=== PATIENT | female | born 1975 | race Caucasian/White ===

== ENCOUNTER → 2017-07-09 10:27 | Outpatient (CLI) | payer BC, SELFPAY ==
[2017-07-09 11:59] LABS: Erythrocyte Sedimentation Rate 10 mm/hr (0-20)
[2017-07-09 14:43] LABS: C-Reactive Protein < 0.2 mg/L (0.0-0.9)
[2017-07-10 13:21] LABS: RA Latex Turbid. <10.0 IU/mL (0.0-13.9)
[2017-07-11 11:51] LABS: Antinuclear Antibodies, IFA Negative (.)
[2017-07-18 11:50] LABS: HLA-B27 Positive (.)
== END ==
PROVIDERS: Visit Provider Podiatrist Foot & Ankle Surgery
DX: M20.40 Other hammer toe(s) (acquired), unspecified foot (principal); M79.673 Pain in unspecified foot
CPT/HCPCS: 36415; 85651; 86038; 86140; 86431; 86812

== ENCOUNTER → 2019-07-13 07:23 | Outpatient (CLI) | payer BC, SELFPAY ==
--- NOTE | 2019-07-13 | ECG_ITS ---
APPROVED REPORT Exam: Resting ECG HR:65 bpm ECG Measurements Heart Rate 65 AXES AK 126 P 84 QRSd 92 QRS 92 QT 388 T 66 QTc 403 <Conclusion> Normal sinus rhythm Rightward axis Nonspecific ST and T wave abnormality Abnormal ECG Electronically signed by : Romulo Ferguson, 07/13/2019 11:48:08
--- NOTE | 2019-07-13 07:29 | XR_ITS ---
PROCEDURE: XR CHEST 2V CLINICAL HISTORY: LT SIDE CHEST PAIN COMPARISON: No exams were available for comparison FINDINGS: The cardiomediastinal silhouette and pulmonary vascularity are within normal limits. The lungs are clear without infiltrates, suspicious nodules, or pleural effusions. No acute bony abnormalities. IMPRESSION: No acute findings. Dictated by: Lisandro Bansal MD 07/13/2019 08:14 Electronically signed by Lisandro Bansal MD in [place] 07/13/2019 08:14
--- NOTE | 2019-07-13 08:00 | CA_ITS ---
APPROVED REPORT EXAM: Comprehensive 2D, Doppler, and color-flow Echocardiogram Tug Boat Engineer: Kim Arriola RDCS Ht: 5 ft 7 in Wt: 140lbs BSA: 1.74 BP: 80/45 mmHg Indications: Chest Pain 2D Dimensions LVOT 2.03 cm (M/F) 1.5-2.5 M-Mode Dimensions RVDd 2.74 cm (0.9-2.6) LVDd 4.75 cm (3.5-5.7) LVDs 3.25 cm (3.5-5.7) IVSd 0.50 cm (0.6-1.1) PWd 0.67 cm (0.6-1.1) EF (Teich) 59.50% FS 31.60% EDV (Teich) 104.90 mL ESV (Teich) 42.50 mL LV Diastology E/A Ratio 1.17 Mitral Valve MV A Velocity 59.00 (40-130 cm/s) Left Ventricle Left atrium is normal size, left ventricle is normal size, there is no concentric left ventricular hypertrophy, visually estimated ejection fraction 55% with no regional wall motion abnormality, diastolic parameters are within normal range. Right Ventricle Right atrium is normal size, right ventricle is upper limit of the normal with normal contractility. Aortic Valve Aortic valve is grossly normal, there is no aortic stenosis or aortic insufficiency. Mitral Valve Mitral valve is grossly normal, there is no mitral stenosis, there is trace mitral regurgitation. Tricuspid Valve Tricuspid valve is grossly normal, there is trace tricuspid regurgitation. Tricuspid regurgitation jet velocity is inadequate for calculation of the right ventricular systolic pressure. Pulmonic Valve Pulmonic valve is poorly visualized. Great Vessels Aortic root is normal size. Pericardium No significant pericardial effusion noted. Conclusion 1. Normal left ventricular size, preserved left ventricular systolic function, visually estimated ejection fraction 55% with no regional wall motion abnormality, diastolic parameters are within normal range. 2. Trace mitral and tricuspid regurgitation. 3. No significant pericardial effusion noted. Electronically signed by : Jace Cain, 07/14/2019 05:37:03
[2019-07-13 08:36] LABS: Basophils % 0.5 % (0.1-2.0); Eosinophils # 0.1 K/mm3 (0.0-0.4); Eosinophils % 0.9 % (0.1-12.0); Hematocrit 39.4 % (37.0-47.0); Hemoglobin 12.9 g/dL (12.2-16.2); Lymphocytes # 1.8 K/mm3 (0.7-4.5); Mean Corpuscular HGB Conc 32.6 g/dL (31.8-35.4); Mean Platelet Volume 7.3 fl (7.4-10.4); Monocytes # 0.3 K/mm3 (0.1-1.0); Monocytes % 5.6 % (1.7-9.3); Neutrophils # 3.2 K/mm3 (1.8-7.8); Neutrophils % 58.9 % (37.0-80.0); Platelet Count 269 K/mm3 (142-424); Red Blood Count 4.14 M/mm3 (4.20-5.40); Red Cell Distribution Width 13.1 % (11.5-17.5); White Blood Count 5.4 K/mm3 (4.8-10.8)
[2019-07-13 09:34] LABS: Chloride 100 mmol/L (98-107)
[2019-07-13 09:35] LABS: Potassium 4.1 mmoL/L (3.5-5.1); Sodium 137 mmol/L (136-145)
[2019-07-13 09:37] LABS: Alanine Aminotransferase 29 U/L (12-78); Alkaline Phosphatase 44 U/L (38-126); Anion Gap 11.1 mEq/L (5-15); Aspartate Amino Transferase 27 U/L (14-36); Bilirubin,Total 0.3 mg/dl (0.2-1.3); Blood Urea Nitrogen 14 mg/dl (7-17); Carbon Dioxide 30 mmol/L (22.0-30.0); Estimated Glomerular Filt Rate 90 ml/min (>60); GFR (African American) 109 ML/MIN (>60)
[2019-07-13 09:38] LABS: Albumin Level 4.1 g/dl (3.5-5.0); Albumin/Globulin Ratio 1.8 (1.1-1.8); Calcium 9.5 mg/dl (8.4-10.2); Chol/HDL Ratio 2.5 (1-3.5); Cholesterol 178 mg/dl (140-200); Globulin 2.3 g/dL (1.3-3.2); Glucose 70 mg/dl (74-100); HDL Cholesterol 70 mg/dl (40-60); Total Protein,Serum 6.4 g/dl (6.3-8.2); Triglycerides 56 mg/dl (30-150); VLDL Cholesterol 11 mg/dL (0-40)
[2019-07-13 09:49] LABS: Direct LDL Cholesterol 89.82 mg/dL (100-129)
[2019-07-13 10:09] LABS: Thyroid Stimulating Hormone 0.04 uIU/mL (0.465-4.68)
[2019-07-13 11:43] LABS: Hemoglobin A1C 5.2 % (4.0-6.0)
[2019-07-14 13:10] LABS: Vitamin B12 889 pg/mL (232-1245); Vitamin D 25 Hydroxy 54.7 ng/mL (30.0-100.0)
== END ==
PROVIDERS: PCP Family Medicine; Visit Provider Nurse Practitioner
DX: R07.9 Chest pain, unspecified (principal)
CPT/HCPCS: 36415; 71046; 80053; 80061; 82607; 82652; 83036; 84443; 85025; 93005; 93306

== ENCOUNTER → 2020-01-10 12:38 | Outpatient (CLI) | payer BC, SELFPAY | PROVIDERS: Visit Provider Family Medicine | DX: I95.9 Hypotension, unspecified (principal) ==

== ENCOUNTER → 2022-01-13 09:36 | Outpatient (CLI) | payer BC, SELFPAY ==
[2022-01-13 10:14] LABS: Coronavirus 19, PCR Not Detected (NotDetected); Influenza A, PCR Not Detected (NotDetected); Influenza B, PCR Not Detected (NotDetected)
[2022-01-13 10:20] LABS: Basophils % 0.4 % (0.1-2.0); Eosinophils # 0.1 K/mm3 (0.0-0.4); Eosinophils % 0.6 % (0.1-12.0); Hematocrit 41.3 % (37.0-47.0); Lymphocytes # 0.9 K/mm3 (0.7-4.5); Lymphocytes % 11.8 % (10-50); Mean Corpuscular HGB Conc 31.4 g/dL (31.8-35.4); Mean Corpuscular Hemoglobin 30.1 pg (27.0-31.2); Mean Corpuscular Volume 95.9 fl (81-99); Mean Platelet Volume 7.9 fl (7.4-10.4); Monocytes # 0.5 K/mm3 (0.1-1.0); Monocytes % 6.3 % (1.7-9.3); Neutrophils # 6.2 K/mm3 (1.8-7.8); Platelet Count 283 K/mm3 (142-424); White Blood Count 7.7 K/mm3 (4.8-10.8)
[2022-01-13 10:29] LABS: Strep Scrn Group A (Rapid) Negative (Negative)
== END ==
PROVIDERS: PCP Family Medicine; Visit Provider Family Medicine
DX: Z20.822 Contact with and (suspected) exposure to COVID-19 (principal); J02.9 Acute pharyngitis, unspecified
CPT/HCPCS: 85025; 87430; C9803; U0003; U0005

== ENCOUNTER → 2022-06-13 11:00 | Outpatient (CLI) | payer BC, SELFPAY | PROVIDERS: PCP Nurse Practitioner; Visit Provider Nurse Practitioner | DX: R30.0 Dysuria (principal) | CPT/HCPCS: 87086 ==

== ENCOUNTER → 2022-07-27 08:10 | Outpatient (CLI) | payer BC, SELFPAY ==
[2022-07-27 09:02] LABS: Basophils % 0.7 % (0.1-2.0); Eosinophils # 0.1 K/mm3 (0.0-0.4); Eosinophils % 1.1 % (0.1-12.0); Hematocrit 38.6 % (37.0-47.0); Hemoglobin 12.7 g/dL (12.2-16.2); Lymphocytes # 1.6 K/mm3 (0.7-4.5); Lymphocytes % 30.8 % (10-50); Mean Corpuscular HGB Conc 32.8 g/dL (31.8-35.4); Mean Corpuscular Hemoglobin 30.8 pg (27.0-31.2); Mean Corpuscular Volume 93.9 fl (81-99); Monocytes # 0.3 K/mm3 (0.1-1.0); Monocytes % 6.1 % (1.7-9.3); Neutrophils # 3.2 K/mm3 (1.8-7.8); Neutrophils % 61.3 % (37.0-80.0); Platelet Count 281 K/mm3 (142-424); Red Blood Count 4.11 M/mm3 (4.20-5.40); Red Cell Distribution Width 13.5 % (11.5-17.5); White Blood Count 5.1 K/mm3 (4.8-10.8)
[2022-07-27 09:50] LABS: Erythrocyte Sedimentation Rate 11 mm/hr (0-20)
[2022-07-27 09:59] LABS: Free T4 (Free Thyroxine) 1.59 ng/dl (0.78-2.19)
[2022-07-27 10:01] LABS: Anion Gap 7.5 mEq/L (5-15); Blood Urea Nitrogen 16 mg/dl (7-17); Carbon Dioxide 31 mmol/L (22.0-30.0); Chloride 97 mmol/L (98-107); Estimated Glomerular Filt Rate 107 ml/min (>60); GFR (African American) 129 ML/MIN (>60); Glucose 71 mg/dl (74-100); Potassium 4.5 mmoL/L (3.5-5.1); Sodium 131 mmol/L (136-145); Uric Acid 4.3 mg/dl (2.5-6.2)
[2022-07-27 10:02] LABS: Alanine Aminotransferase 23 U/L (12-78); Albumin Level 3.8 g/dl (3.5-5.0); Albumin/Globulin Ratio 1.7 (1.1-1.8); Alkaline Phosphatase 52 U/L (38-126); Aspartate Amino Transferase 29 U/L (14-36); Bilirubin,Total 0.4 mg/dl (0.2-1.3); Calcium 8.6 mg/dl (8.4-10.2); Chol/HDL Ratio 2.7 (1-3.5); Cholesterol 192 mg/dl (140-200); Globulin 2.3 g/dL (1.3-3.2); HDL Cholesterol 71 mg/dl (40-60); Total Protein,Serum 6.1 g/dl (6.3-8.2); Triglycerides 41 mg/dl (30-150); VLDL Cholesterol 8 mg/dL (0-40)
[2022-07-27 10:13] LABS: Direct LDL Cholesterol 99.15 mg/dL (100-129)
[2022-07-27 10:14] LABS: C-Reactive Protein < 0.3 mg/L (0-4)
[2022-07-27 10:17] LABS: 25-OH Vitamin D, Total 78.4 ng/mL (30-100)
[2022-07-27 10:32] LABS: Thyroid Stimulating Hormone < 0.02 uIU/mL (0.465-4.68)
[2022-07-27 10:51] LABS: Vitamin B12 876 pg/mL (239-931)
[2022-07-28 11:00] LABS: DHEA-Sulfate 82.9 ug/dL (41.2-243.7); Estradiol 94.5 pg/mL (.); Progesterone 2.4 ng/mL (.); RA Latex Turbid. 10.3 IU/mL (<14.0); Testosterone,Total 8 ng/dL (4-50); Thyroid Peroxidase Antibodies 13 IU/mL (0-34); Triiodothyronine (T3) Free 2.2 pg/mL (2.0-4.4); Triiodothyronine (T3) Total 74 ng/dL (71-180)
[2022-07-28 12:47] LABS: Anti-Centromere B Antibodies <0.2 AI (0.0-0.9); Anti-DNA (DS) Ab Qn <1 IU/mL (0-9); Anti-Jo-1 <0.2 AI (0.0-0.9); Anti-Smith Antibody <0.2 AI (0.0-0.9); Antichromatin Antibodies <0.2 AI (0.0-0.9); Antiscleroderma-70 Antibodies <0.2 AI (0.0-0.9); RNP Antibodies <0.2 AI (0.0-0.9); Sjogren's Anti-SS-A <0.2 AI (0.0-0.9); Sjogren's Anti-SS-B <0.2 AI (0.0-0.9)
[2022-07-30 17:23] LABS: Antinuclear Antibodies, IFA Negative (.); Thyroglobulin Level <1.0 IU/mL (0.0-0.9)
[2022-08-02 16:40] LABS: Estrogen 150 pg/mL (.)
== END ==
PROVIDERS: PCP Nurse Practitioner; Visit Provider Nurse Practitioner
DX: E03.9 Hypothyroidism, unspecified (principal); E53.8 Deficiency of other specified B group vitamins; E55.9 Vitamin D deficiency, unspecified; M25.50 Pain in unspecified joint; R14.0 Abdominal distension (gaseous); R53.83 Other fatigue; R63.5 Abnormal weight gain; Z98.890 Other specified postprocedural states
CPT/HCPCS: 36415; 80053; 80061; 82306; 82533; 82607; 82626; 82670; 82672; 83036; 83525; 83735; 84144; 84403; 84439; 84443; 84480; 84481; 84550; 85025; 85651; 86038; 86140; 86225; 86235; 86316; 86376; 86431; 86800

== ENCOUNTER → 2022-11-20 18:57 | Outpatient (CLI) | payer BC, SELFPAY ==
[2022-11-20 20:03] LABS: Basophils % 0.2 % (0.1-2.0); Eosinophils % 0.9 % (0.1-12.0); Hematocrit 38.8 % (37.0-47.0); Lymphocytes # 1.1 K/mm3 (0.7-4.5); Lymphocytes % 26.2 % (10-50); Mean Corpuscular HGB Conc 30.9 g/dL (31.8-35.4); Mean Corpuscular Hemoglobin 29.4 pg (27.0-31.2); Mean Platelet Volume 9.7 fl (7.4-10.4); Monocytes # 0.3 K/mm3 (0.1-1.0); Monocytes % 6.9 % (1.7-9.3); Neutrophils # 2.7 K/mm3 (1.8-7.8); Neutrophils % 65.8 % (37.0-80.0); Platelet Count 291 K/mm3 (142-424); Red Blood Count 4.08 M/mm3 (4.20-5.40); Red Cell Distribution Width 13.4 % (11.5-17.5); White Blood Count 4.1 K/mm3 (4.8-10.8)
[2022-11-20 20:25] LABS: Alanine Aminotransferase 39 U/L (12-78); Albumin/Globulin Ratio 1.7 (1.1-1.8); Alkaline Phosphatase 58 U/L (38-126); Anion Gap 8.1 mEq/L (5-15); Aspartate Amino Transferase 40 U/L (14-36); Bilirubin,Total 0.5 mg/dl (0.2-1.3); Blood Urea Nitrogen 13 mg/dl (7-17); Calcium 8.9 mg/dl (8.4-10.2); Carbon Dioxide 28 mmol/L (22.0-30.0); Chloride 105 mmol/L (98-107); Chol/HDL Ratio 2.8 (1-3.5); Cholesterol 219 mg/dl (140-200); Estimated Glomerular Filt Rate 131 ml/min (>60); GFR (African American) 159 ML/MIN (>60); Globulin 2.4 g/dL (1.3-3.2); Glucose 83 mg/dl (74-100); HDL Cholesterol 77 mg/dl (40-60); Magnesium 1.9 mg/dl (1.6-2.3); Potassium 4.1 mmoL/L (3.5-5.1); Sodium 137 mmol/L (136-145); Total Protein,Serum 6.4 g/dl (6.3-8.2); Triglycerides 45 mg/dl (30-150); VLDL Cholesterol 9 mg/dL (0-40)
[2022-11-20 20:41] LABS: 25-OH Vitamin D, Total 77.1 ng/mL (30-100)
[2022-11-20 20:42] LABS: Free T4 (Free Thyroxine) 1.81 ng/dl (0.78-2.19)
[2022-11-20 22:02] LABS: Iron 61 ug/dL (37-170)
[2022-11-20 22:13] LABS: Total Iron Binding Capacity 316 ug/dL (265-497)
[2022-11-20 22:23] LABS: Direct LDL Cholesterol 102.84 mg/dL (100-129); Thyroid Stimulating Hormone 0.02 uIU/mL (0.465-4.68); Vitamin B12 > 1000 pg/mL (239-931)
[2022-11-20 22:25] LABS: Hemoglobin A1C 5.1 % (4.0-6.0)
[2022-11-20 22:38] LABS: Ferritin 54.4 ng/ml (6.24-137)
[2022-11-22 08:22] LABS: DHEA-Sulfate 98.4 ug/dL (41.2-243.7); FSH 5.6 mIU/mL (.); LH 8.1 mIU/mL (.); Progesterone 0.2 ng/mL (.); Testosterone,Total 16 ng/dL (4-50); Triiodothyronine (T3) Free 3.4 pg/mL (2.0-4.4); Triiodothyronine (T3) Total 128 ng/dL (71-180)
[2022-11-23 16:13] LABS: Estrogen 268 pg/mL (.)
== END ==
PROVIDERS: PCP Nurse Practitioner; Visit Provider Nurse Practitioner
DX: E03.9 Hypothyroidism, unspecified (principal); E53.8 Deficiency of other specified B group vitamins; E55.9 Vitamin D deficiency, unspecified; R53.83 Other fatigue; Z86.39 Personal history of other endocrine, nutritional and metabolic disease; Z98.890 Other specified postprocedural states
CPT/HCPCS: 80053; 80061; 82306; 82533; 82607; 82626; 82670; 82672; 82728; 83001; 83002; 83036; 83540; 83550; 83735; 84144; 84403; 84439; 84443; 84480; 84481; 85025

== ENCOUNTER → 2023-01-11 23:15 | Outpatient (CLI) | payer BC, SELFPAY ==
[2023-01-11 19:37] LABS: Alanine Aminotransferase 23 U/L (12-78); Albumin Level 4.1 g/dl (3.5-5.0); Albumin/Globulin Ratio 1.6 (1.1-1.8); Alkaline Phosphatase 57 U/L (38-126); Anion Gap 13.2 mEq/L (5-15); Aspartate Amino Transferase 26 U/L (14-36); Bilirubin,Total 0.4 mg/dl (0.2-1.3); Blood Urea Nitrogen 15 mg/dl (7-17); Carbon Dioxide 27 mmol/L (22.0-30.0); Chloride 102 mmol/L (98-107); Estimated Glomerular Filt Rate 106 ml/min (>60); GFR (African American) 129 ML/MIN (>60); Globulin 2.5 g/dL (1.3-3.2); Glucose 87 mg/dl (74-100); Potassium 4.2 mmoL/L (3.5-5.1); Sodium 138 mmol/L (136-145); Total Protein,Serum 6.6 g/dl (6.3-8.2)
[2023-01-13 07:44] LABS: Progesterone 0.6 ng/mL (.); Testosterone,Total 13 ng/dL (4-50)
[2023-01-15 13:08] LABS: Insulin Level Total 5.4 uIU/mL (2.6-24.9)
== END ==
PROVIDERS: PCP Nurse Practitioner; Visit Provider Obstetrics & Gynecology
DX: N93.9 Abnormal uterine and vaginal bleeding, unspecified (principal); R63.5 Abnormal weight gain; R53.83 Other fatigue; R74.01 Elevation of levels of liver transaminase levels
CPT/HCPCS: 80053; 82670; 83498; 83525; 84144; 84403

== ENCOUNTER 2023-02-09 09:33 | Emergency (ER) | payer BC, SELFPAY ==
[2023-02-09 09:40] VITALS: BP 104/46; PULSE 66; RESP 20; TEMP 36.7; O2SAT 100; BMI 23.5
--- NOTE | 2023-02-09 10:04 | EXP.UTC ---
Discharge Plan Disposition Patient Disposition: Home, Self-Care Condition: Good Prescriptions Prescriptions: New nystatin 100,000 unit/mL suspension 5 ml PO QID 10 Days Qty: 200 0RF Rx Instructions: swish and swallow No Action liothyronine 5 mcg tablet 5 mcg PO DAILY multivitamin [Multi-Day] 1 EACH tablet 1 ea PO DAILY magnesium 250 mg tablet 300 mg PO DAILY levothyroxine 125 mcg capsule 125 mcg PO DAILY Referrals Follow up/Referrals: Enid Hercules APRN [Primary Care Provider] - See instructions Clinical Impressions Clinical Impression: Candidiasis of mouth Instructions Patient Instructions: DI for Thrush, Thrush-Adult Discharge ED Provider: Patrick ([facility])[place] [facility] [place] General Stated complaint: tounge swollen and sore Mode of Arrival: Ambulatory Source of Information: Patient Limitations: No Limitations Time Seen by Provider: 02/09/23 10:05 Description of Symptoms (Recalled from Triage Doc. by RN): PATIENT C/O SWELLING AND PAIN TO TONGUE, MOUTH, AND THROAT THAT HAS BEEN GOING ON OFF AND ON FOR A WHILE HEENT Symptoms (Recalled from RN notes): Yes Resp Symptoms (Recalled from RN notes): No Skin Symptoms (Recalled from RN notes): No MS Symptoms (Recalled from RN notes): No Functional Status (Recalled from RN notes): WNL History of Present Illness Provider Complaint: 47 YR OLD FEMALE PRESENTS WITH C/O SWELLING AND PAIN TO TONGUE,WHITE COATINGON TONGUE,PAIN MOUTH, AND THROAT THAT HAS BEEN GOING ON OFF AND ON FOR A WHILE Related Data Home Medications Medication Instructions Recorded Confirmed multivitamin (Multi-Day tablet) 1 ea PO DAILY Supplement 10/13/17 02/09/23 liothyronine 5 mcg tablet 5 mcg PO DAILY THYROID 06/13/22 02/09/23 magnesium 250 mg tablet 300 mg PO DAILY Supplement 01/09/23 02/09/23 levothyroxine 125 mcg capsule 125 mcg PO DAILY Supplement 02/09/23 02/09/23 Previous Rx's Medication Instructions Recorded nystatin 100,000 unit/mL oral 5 ml PO QID 10 days #200 mL 02/09/23 suspension Allergies Allergy/AdvReac Type Severity Reaction Status Date / Time shellfish derived Allergy Severe S-SWELLS-OR Verified 01/30/23 13:52 [From SHELLFISH (FOOD/DRUG)] AL/THROAT Penicillins Allergy Mild I-RASH Verified 01/30/23 13:52 Worker's Comp Is this a Worker's Comp case?: No [facility] Disclaimer: The information contained in this section may have been updated after the patient was seen, as this information can be updated by other users. 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) Acquired hypothyroidism Bloating Fatigue History of obesity Pharyngitis, acute Polyarthralgia Vitamin B12 deficiency Vitamin D deficiency Surgical History , CARPET INSPECTOR FINISHED) H/O tubal ligation History of appendectomy History of cholecystectomy Hx of breast reduction, elective S/P endometrial ablation Family History , CARPET INSPECTOR FINISHED) Diabetes Coronary artery disease Hyperlipidemia Heart attack FHx: mental illness Cancer Hypertension Thyroid disorder Stroke Social History , CARPET INSPECTOR FINISHED) Smoking Status: Former smoker alcohol intake: never substance use type: denies use current occupational status: employed Travel in the last 8 weeks: None household members: family housing: house ROS Obtained: Yes All systems reviewed & no additional complaints except as documented Constitutional Constitutional: Reports system reviewed and no additional complaints, except as documented and Reports as per HPI Eyes Eyes: Reports system reviewed and no additional complaints, except as documented and Reports as per HPI ENT Ears, Nose, Mouth, and Throat: Reports system reviewed and no additional complaints, except as documented, Reports as per HPI, Reports dry mouth, Reports odynophagia, Reports sore
[2023-02-09 10:17] VITALS: BP 104/46; PULSE 66; RESP 20; TEMP 36.7; O2SAT 100
[2023-02-09 10:17] LABS: UTC Strep Screen (Rapid) Negative (Negative)
== END 2023-02-09 10:22 | disposition home or self-care (01) ==
PROVIDERS: Emergency Provider Nurse Practitioner Family; PCP Nurse Practitioner
DX: B37.0 Candidal stomatitis (principal); E03.9 Hypothyroidism, unspecified; E55.9 Vitamin D deficiency, unspecified; E53.8 Deficiency of other specified B group vitamins; Z87.891 Personal history of nicotine dependence
CPT/HCPCS: 87880; 99203; 99212; G0463

== ENCOUNTER → 2023-04-17 11:15 | Outpatient (CLI) | payer BC, SELFPAY ==
[2023-04-17 11:48] LABS: Basophils % 0.5 % (0.1-2.0); Eosinophils # 0.1 K/mm3 (0.0-0.4); Eosinophils % 1.9 % (0.1-12.0); Hematocrit 42.5 % (37.0-47.0); Lymphocytes # 1.6 K/mm3 (0.7-4.5); Lymphocytes % 31.7 % (10-50); Mean Corpuscular HGB Conc 32.9 g/dL (31.8-35.4); Mean Corpuscular Hemoglobin 31.2 pg (27.0-31.2); Mean Corpuscular Volume 94.7 fl (81-99); Monocytes # 0.3 K/mm3 (0.1-1.0); Monocytes % 5.6 % (1.7-9.3); Neutrophils % 60.2 % (37.0-80.0); Platelet Count 315 K/mm3 (142-424); Red Blood Count 4.49 M/mm3 (4.20-5.40); Red Cell Distribution Width 13.5 % (11.5-17.5); White Blood Count 4.9 K/mm3 (4.8-10.8)
[2023-04-17 12:00] LABS: D-Dimer 0.73 ug/mL (0.0-0.5)
[2023-04-17 12:15] LABS: Magnesium 1.9 mg/dl (1.6-2.3)
[2023-04-17 12:16] LABS: Alanine Aminotransferase 25 U/L (12-78); Albumin Level 4.5 g/dl (3.5-5.0); Albumin/Globulin Ratio 1.9 (1.1-1.8); Alkaline Phosphatase 53 U/L (38-126); Anion Gap 7.5 mEq/L (5-15); Aspartate Amino Transferase 34 U/L (14-36); Bilirubin,Total 0.7 mg/dl (0.2-1.3); Blood Urea Nitrogen 14 mg/dl (7-17); Carbon Dioxide 29 mmol/L (22.0-30.0); Chloride 101 mmol/L (98-107); Estimated Glomerular Filt Rate 106 ml/min (>60); GFR (African American) 129 ML/MIN (>60); Globulin 2.4 g/dL (1.3-3.2); Glucose 86 mg/dl (74-100); Potassium 4.5 mmoL/L (3.5-5.1); Sodium 133 mmol/L (136-145); Total Protein,Serum 6.9 g/dl (6.3-8.2)
--- NOTE | 2023-04-17 15:49 | CA_ITS ---
FINAL REPORT TECHNIQUE: Color Doppler, duplex Doppler and compression sonography of the right lower extremity venous system was performed. CLINICAL HISTORY: Eleveted D-dimer, right calf pain at medial to lateral calf with varicosities, Newly prescribed hormone replacement FINDINGS: There is no evidence of deep venous thrombosis from the level of the groin to the calf. The veins are patent and compressible. IMPRESSION: No evidence of deep venous thrombosis right lower extremity. Reviewed, Interpreted and Dictated by Jann Meeks III, MD Transcribed by Chiara Hughes Authenticated and [facility]
[2023-04-18 08:25] LABS: DHEA-Sulfate 84.7 ug/dL (41.2-243.7); Estradiol 94.4 pg/mL (.); FSH 9.7 mIU/mL (.); Progesterone 0.3 ng/mL (.); Testosterone,Total 5 ng/dL (4-50)
[2023-04-18 11:14] LABS: Insulin Level Total 4.6 uIU/mL (2.6-24.9)
[2023-04-20 15:31] LABS: Estrogen 160 pg/mL (.)
== END ==
PROVIDERS: PCP Nurse Practitioner Family; Visit Provider Obstetrics & Gynecology
DX: N95.1 Menopausal and female climacteric states (principal); R63.5 Abnormal weight gain; M79.661 Pain in right lower leg; Z68.23 Body mass index [BMI] 23.0-23.9, adult
CPT/HCPCS: 36415; 80053; 82626; 82670; 82672; 83001; 83002; 83498; 83525; 83735; 84144; 84403; 85025; 85378; 93971

== ENCOUNTER 2024-05-11 19:01 | Outpatient (CLI) | payer BC, SELFPAY ==
[2024-05-11 20:39] LABS: Chloride 101 mmol/L (98-107)
[2024-05-11 20:40] LABS: Albumin Level 4.1 g/dl (3.5-5.0); Potassium 4.5 mmoL/L (3.5-5.1); Sodium 132 mmol/L (136-145)
[2024-05-11 20:42] LABS: Anion Gap 10.5 mEq/L (5-15); Blood Urea Nitrogen 18 mg/dl (7-17); Carbon Dioxide 25 mmol/L (22.0-30.0); Estimated Glomerular Filt Rate 89 ml/min (>60); GFR (African American) 107 ML/MIN (>60)
[2024-05-11 20:43] LABS: Alanine Aminotransferase 31 U/L (12-78); Albumin/Globulin Ratio 1.8 (1.1-1.8); Alkaline Phosphatase 61 U/L (38-126); Aspartate Amino Transferase 32 U/L (14-36); Bilirubin,Total 0.6 mg/dl (0.2-1.3); Calcium 9.3 mg/dl (8.4-10.2); Globulin 2.3 g/dL (1.3-3.2); Glucose 84 mg/dl (74-100); Total Protein,Serum 6.4 g/dl (6.3-8.2)
[2024-05-11 21:11] LABS: Thyroid Stimulating Hormone 0.03 uIU/mL (0.465-4.68)
[2024-05-11 22:54] LABS: Hemoglobin A1C 4.9 % (4.0-6.0)
[2024-05-14 13:39] LABS: Insulin Level Total 4.4 uIU/mL (2.6-24.9)
== END 2024-05-11 23:59 | disposition home or self-care (01) ==
LOC: LAB 19:03 → LAB.DROPOF 19:54
PROVIDERS: PCP Obstetrics & Gynecology; Visit Provider Obstetrics & Gynecology
DX: N95.1 Menopausal and female climacteric states (principal)
CPT/HCPCS: 80053; 83036; 83525; 84443

== ENCOUNTER 2024-07-08 09:28 | Outpatient (CLI) | payer BC, SELFPAY ==
--- NOTE | 2024-07-08 09:32 | CA_ITS ---
FINAL REPORT TECHNIQUE: Compression chapa scale and Doppler evaluation CLINICAL HISTORY: Plantar fasciitis, right calf pain post wearing a boot FINDINGS: Femoral and popliteal veins show normal compressibility and flow. Visualized portion of the calf veins are patent by Doppler exam. IMPRESSION: No evidence of right lower extremity deep venous thrombosis Reviewed, Interpreted and Dictated by Eliza Tinoco MD Transcribed by Chiara Hughes Authenticated and [facility]
== END 2024-07-08 23:59 | disposition home or self-care (01) ==
LOC: RT 09:29
PROVIDERS: PCP Nurse Practitioner; Visit Provider Nurse Practitioner Family
DX: M79.661 Pain in right lower leg (principal)
CPT/HCPCS: 93971

== ENCOUNTER 2024-10-27 09:37 | Outpatient (CLI) | payer BC, SELFPAY ==
--- OUTSIDE RECORDS SUMMARY | 2024-09-08 16:30 | XMS_ITS | Encounter Summary ---
Author Organization [facility] Address [address] [place] [address] Care Team Providers Care International Affairs Vice President Name Role Phone Susie Chaidez Primary Care Provider [phone] Reason for Visit * Physical Therapy (Routine) - Authorization Not Needed Specialty Diagnoses / Procedures Referred By Leana hayes Referred To Contact Physical Therapy Diagnoses Bilateral plantar fasciitis Laura Garduno MD [address] [place] [address] Phone: tel: fax: [facility] [address] [place] [address] Referral ID Status Reason Start Date Expiration Date Visits Requested Visits Authorized [id number] Authorization Not Needed 07/08/2024 07/08/2025 1 89 Encounter Details Date Type Department Care Team (Latest Contact Info) Description 09/08/2024 4:30 PM EDT Office Visit [facility] [address] [place] [address] Radha Castellanos, PT [address] [place] [address] Bilateral plantar fasciitis (Primary Dx) Social History Tobacco Use Types Packs/Day Years Used Date Smoking Tobacco: Former Cigarettes Smokeless Tobacco: Never Alcohol Use Standard Drinks/Week Comments No 0 (1 standard drink = 0.6 oz pur e alcohol) Sexually Active Control Partners Comments Yes Surgical Male Tubal Comments No Sex and Gender Information Value Date Recorded Sex Assigned at Not on file Legal Sex Female 7:54 PM EDT Gender Identity Not on file Sexual Orientation Not on file Occupation Industry Job Start Date Job End Date Not on file Not on file Not on file Not on file documented as of this encounter Progress Notes * Radha Castellanos, PT - 09/08/2024 4:30 PM EDT Images from the original note were not included. Physical Therapy Daily Progress Note 09/08/24 Stephanie Bhatt : 1975 Referring Provider: Laura Garduno MD Next MD visit: NSV Encounter Diagnosis Name Primary? Bilateral plantar fasciitis Yes Surgery Date: na Surgery Type na Onset date: Contraindications/Precautions: na Visit: 03/28 Time In: 4:15pm Time Out: 4:55pm Subjective: Feels she is in a holding pattern because being on concrete floors irritates it. Would like to take a break and get through the end of school year. Objective: supervised exercises per flow sheet Treatment Treatment 08/18/24 08/25/24 09/08/24 PIRIFORMIS STRETCH 3 hold 20 3 hold 20 3 hold 20 FIG 4 STR INTO ER 3 hold 20 3 hold 20 3 hold 20 HS STR WITH ROPE 3 hold 20 3 hold 20 3 hold 20 gastroc stretch 3 hold 20 3 hold 20 3 hold 20 SLB with big toe isometric 5 hold 10 5 hold 10 5 hold 10 soleus stretch 3 hold 20 3 hold 20 3 hold 20 Modalities HP During PUS right PF insertion 5 5 5 KT tape completed completed completed Dry needling bilateral gastroc Manual Therapy STM bilateral pf and gastroc 10 10 10 IASTM 5 5 5 HEP ID: [id number] PT Treatment today included: Ankle and foot strengthening and stretching. Manual therapy and modalities. Timed Units: Therapeutic exercise: 15 minutes Manual therapy: 15 minutes Ultrasound: 5 minutes Total Time for Timed Treatments: 35 minutes Untimed Units: Hot/cold packs Patient's Tolerance of Evaluation and/or Treatment:Excellent Response to HEP instruction/patient education: The patient verbalized understanding and demonstrated independence with home exercise program. Assessment:Tolerated well Plan: Trial with independent HEP Signature: Radha Castellanos, PT Date: 09/09/2024 documented in this encounter Plan of Treatment Upcoming Encounters Date Type Department Care Team (Late st Contact Info) Description 11/19/2024 9:15 AM EDT Office Visit [facility] [address] [place] [address] Laura Garduno MD [address] [place] [address] 03/31/2025 10:00 AM EST Office Visit [facility] [address] [phone] Siva Rey MD [address] [place] [address] documented as of this encounter Goals Goal Patient Goal Type Associated Problems Recent Progress Patient-Stated? Author Maintain a healthy diet, exercise regularly and maintain an ideal body weight General No Radha Acevedo Stay Tobacco Free Lifestyle Radha Glover documented as of this encounter Visit Diagnoses Diagnosis Bilateral plantar fasciitis- Primary Plantar fascial fibromatosis documented in this encounter Care Teams International Affairs Vice President Relationship Specialty Start Date End Date Susie Chaidez [address] [facility] [address] [facility] [address] PCP - General 03/03/09 documented as of this encounter
--- OUTSIDE RECORDS SUMMARY | 2024-09-18 08:40 | XMS_ITS | Encounter Summary ---
Author Organization [place] [address] Care Team Providers Care Platinum And Palladium Kettle Tender Name Role Phone Susie Chaidez Primary Care Provider [phone] Reason for Visit * Reason Comments Lab Orders Encounter Details Date Type Department Care Team (Latest Contact Info) Description 09/18/2024 8:40 AM EDT Clinical Support MARIBETH [place] [address] [place] [address] Matt Rice MA Primary hypothyroidism; Family history of diabetes mellitus (DM) Social History Tobacco Use Types Packs/Day Years [...] as of this encounter Progress Notes * Matt Rice MA - 09/18/2024 8:40 AM EDT Venipuncture in the right antecubital vein with 21 gauge needle, length 1 1/2 inch. documented in this encounter Plan of Treatment Upcoming Encounters Date Type Department Care Team (Late st Contact Info) Description 11/19/2024 9:15 AM EDT Office Visit [facility] [address] [place] [address] Laura Garduno MD [address] [place] [address] 03/31/2025 10:00 AM EST Office Visit [facility] [place] [address] [facility] [address] [place] [phone] Siva Rey MD [address] [place] [address] documented as of this encounter Goals Goal Patient Goal Type Associated Problems Recent Progress Patient-Stated? Author Maintain a healthy diet, exercise regularly and maintain an ideal body weight General No Radha Acevedo Stay Tobacco Free Lifestyle No Radha Acevedo documented as of this encounter Procedures Procedure Name Priority Date/Time Associated Diagnosis Comments LIPID PANEL REFLEX Routine 09/18/2024 8: 42 AM EDT Family history of diabetes mellitus (DM) INSULIN FASTING Routine 09/18/2024 8:42 AM EDT Family history of diabetes mellitus (DM) T3 FREE Routine 09/18/2024 8:42 AM EDT Primary hypothyroidism THYROID STIMULATING HORMONE Routine 09/18/2024 8:42 AM EDT Primary hypothyroidism T4, FREE (THYROXINE) Routine 09/18/2024 8:42 AM EDT Primary hypothyroidism HEMOGLOBIN A1C Routine 09/18/2024 8:42 AM EDT Family history of diabetes mellitus (DM) COMPREHENSIVE METABOLIC PANEL Routine 09/18/2024 8:42 AM EDT Family history of diabetes mellitus (DM) documented in this encounter Results * INSULIN FASTING (09/18/2024 8:42 AM EDT) [facility] Insulin Fasting 8.10 2.60 - 24.90 mcIU/mL 09/18/2024 4:29 PM EDT [facility] Blood VENOUS BLOOD / Unknown Venipuncture / Unknown 09/18/2024 8:42 AM EDT 09/18/2024 8:42 AM EDT Narrative [facility] - 09/18/2024 4:29 PM EDT Ingestion of madelin doses of biotin (>5 mg/day) taken within 8 hours of drawing blood sample can interfere with this immunoassay test. us Siva Rey MD CHEMISTRY ORDERABLES Final Re sult [facility] [employer] [facility] [address] [facility] [facility] , [place] [address] * (ABNORMAL) LIPID PANEL REFLEX (09/18/2024 8:42 AM EDT) [facility] Cholesterol 233(H) <200 mg/dL 09/18/2024 4:32 PM EDT [employer] [employer] Comment: < 200 Desirable 200 - 239 Borderline High >= 240 High Triglyceride 60 <150 mg/dL 09/18/2024 4:32 PM EDT [employer] [employer] Comment: < 150 Normal 150 - 199 Borderline High 200 - 499 High >= 500 Very High HDL 81 >=40 mg/dL 09/18/2024 4:32 PM EDT [employer] [employer] Comment: > 60 Optimal 40 - 60 Acceptable < 40 Low LDL Calculated 142(H) <100 mg/dL 09/18/2024 4:32 PM EDT [employer] [employer] Comment: < 100 Optimal 100 - 129 Near or above optimal 130 - 159 Borderline High 160 - 189 High >= 190 Very High The National Institutes of Health (NIH) equation is used for all lipid panels that report calculated LDL (LDL-C). Non-HDL-C Calculated 152(H) <=129 mg/dL 09/18/2024 4:32 PM EDT [facility] Comment: <130 Desirable 130-159 Above Desirable 160-189 Borderline High 190-219 High >= 220 Very High Fasting Specimen? Yes None 025 4:32 PM EDT [facility] Blood VENOUS BLOOD / Unknown Venipuncture / Unknown 09/18/2024 8:42 AM EDT 09/18/2024 8:42 AM EDT us Siva Rey MD CHEMISTRY ORDERABLES Final Re sult [facility], [facility] [address] [address] , [address] [place] [id number] * (ABNORMAL) COMPREHENSIVE METABOLIC PANEL (09/18/2024 8:42 AM EDT) Sodium 137 136 - 145 mmol/L 09/18/2024 4:32 PM EDT [facility] Potassium 5.3(H) 3.5 - 5.0 mmol/L 09/18/2024 4:32 PM EDT [facility] Chloride 101 98 - 107 mmol/L 09/18/2024 4:32 PM EDT [facility] Total CO2 27 22 - 29 mmol/L 09/18/2024 4:32 PM EDT [facility] Anion Gap 9 7 - 16 mmol/L 09/18/2024 4:32 PM EDT [facility] Calcium 10.1 8.6 - 10.4 mg/dL 09/18/2024 4:32 PM EDT [facility] Glucose Lvl 86 70 - 99 mg/dL 09/18/2024 4:32 PM EDT [facility] BUN 16 6 - 20 mg/dL 09/18/2024 4:32 PM EDT [facility] Creatinine 0.61 0.51 - 1.30 mg/dL 09/18/2024 4:32 PM EDT [facility] Albumin 4.4 3.5 - 5.2 gm/dL 09/18/2024 4:32 PM EDT [facility] Total Protein 7.1 6.4 - 8.3 gm/dL 09/18/2024 4:32 PM EDT [facility] Bili Total 0.4 0.2 - 1.3 mg/dL 09/18/2024 4:32 PM EDT [facility], [facility] ALT 16 <=41 U/L 09/18/2024 4:32 PM EDT [facility], [facility] AST 22 <=40 U/L 09/18/2024 4:32 PM EDT [facility], [facility] Alk Phos 61 36 - 123 U/L 09/18/2024 4:32 PM EDT [facility], [facility] eGFR (CKD-EPIcr 2020) 108 >=60 mL/min/1.7 3 m2 09/18/2024 4:32 PM EDT [facility] Comment:Estimated GFR was ca lculated using the CKD-EPIcr (2020) equation refit without race. The equation is recommended by the National Kidney Foundation - [place] Society of Nephrology Task Force. Blood VENOUS BLOOD / Unknown Venipuncture / Unknown 09/18/2024 8:42 AM EDT 09/18/2024 8:42 AM EDT us Siva Rey MD CHEMISTRY ORDERABLES Final Re sult [facility] [address] [address] , [place] [address] * HEMOGLOBIN A1C (09/18/2024 8:42 AM EDT) Hgb A1C 5.3 4.2 - 5.6 % 09/18/2024 5:07 PM EDT [facility] Est. Avg Glucose 105 mg/dL 09/18/2024 5:07 PM EDT [facility] Blood VENOUS BLOOD / Unknown Venipuncture / Unknown 09/18/2024 8:42 AM EDT 09/18/2024 8:42 AM EDT Narrative [facility] - 09/18/2024 5:07 PM EDT REFERENCE RANGE: Normal: 4.0-5.6% Pre-diabetes: 5.7-6.4% Provisional diagnosis of diabetes: >6.4% Hgb F>10% and anything which shortens red cell survival, such as hemolytic anemia, or unstable hemoglobin variants such as HbSS, HbSC, or HbCC, will lower the HbA1c value associated with a given level of glycemic control. Siva Rey MD CHEMISTRY ORDERABLES Final Re sult Performing Organization Address [facility] Phone Number [facility] [address] , [place] [address] * (ABNORMAL) THYROID STIMULATING HORMONE (09/18/2024 8:42 AM EDT) TSH 0.050(L) 0.270 - 4.200 mcIU/mL 09/18/2024 4:34 PM EDT [employer] Blood VENOUS BLOOD / Unknown Venipuncture / Unknown 09/18/2024 8:42 AM EDT 09/18/2024 8:42 AM EDT Narrative [employer] - 09/18/2024 4:34 PM EDT Ingestion of madelin doses of biotin (>5 mg/day) taken within 8 hours of drawing blood sample can interfere with this immunoassay test. Siva Rey MD CHEMISTRY ORDERABLES Final Re sult Performing Organization Address [facility] Phone Number [facility] [address] , [place] [address] * T4, FREE (THYROXINE) (09/18/2024 8:42 AM EDT) Free T4 1.38 0.80 - 1.80 ng/dL 09/18/2024 4:34 PM EDT [employer] Blood VENOUS BLOOD / Unknown Venipuncture / Unknown 09/18/2024 8:42 AM EDT 09/18/2024 8:42 AM EDT Narrative [employer] [facility] - 09/18/2024 4:34 PM EDT Ingestion of madelin doses of biotin (>5 mg/day) taken within 8 hours of drawing blood sample can interfere with this immunoassay test. Siva Rey MD CHEMISTRY ORDERABLES Final sult Performing Organization Address [facility] Co de Phone Number [employer] [address] [address] , [place] [address] * T3 FREE (09/18/2024 8:42 AM EDT) T3 Free 2.97 2.00 - 4.40 pg/mL 09/18/2024 4:34 PM EDT [employer] Blood VENOUS BLOOD / Unknown Venipuncture / Unknown 09/18/2024 8:42 AM EDT 09/18/2024 8:42 AM EDT Narrative [facility] [employer] - 09/18/2024 4:34 PM EDT Ingestion of madelin doses of biotin (>5 mg/day) taken within 8 hours of drawing blood sample can interfere with this immunoassay test. Siva Rey MD CHEMISTRY ORDERABLES Final Re sult Performing Organization Address [facility] de Phone Number [employer] [address] [facility] [address] , [place] [address] documented in this encounter Visit Diagnoses Diagnosis Primary hypothyroidism Unspecified hypothyroidism Family history of diabetes mellitus (DM) Family history of diabetes mellitus documented in this encounter Care Teams Platinum And Palladium Kettle Tender Relationship Specialty Start Date End Date Suise Chaidez [address] [place] [address] [address] [facility] [address] PCP - General 03/03/09 documented as of this encounter
--- OUTSIDE RECORDS SUMMARY | 2024-09-23 08:44 | XMS_ITS | Encounter Summary ---
Author Organization [place] [address] Care Team Providers Care Facility Sales And Admin Name Role Phone Susie Chaidez Primary Care Provider Reason for Referral * EMG (Routine) - Pending Review Specialty Diagnoses / Procedures Referred By Contact Referred To Contact Psychiatry & Neurology-Neurology / Electromyography Diagnoses Pain in left foot Pain in right foot Paresthesia of skin Other specific joint derangements of right ankle, not elsewhere classified Other specific joint derangements of left ankle, not elsewhere classified Procedures EMG Sg Dyson MD [address] [place] [address] Phone: tel: fax: Sg Dyson MD [address] [place] [address] Phone: tel: fax: Referral ID Status Reason Start Date Expiration Date V isits Requested Visits Authorized [id number] Pending Review 09/11/2024 09/11/2025 1 1 Reason for Visit * EMG (Routine) - Pending Review Specialty Diagnoses / Procedures Referred By Contact Referred To Contact Psychiatry & Neurology-Neurology / Electromyography Diagnoses Pain in left foot Pain in right foot Paresthesia of skin Other specific joint derangements of right ankle, not elsewhere classified Other specific joint derangements of left ankle, not elsewhere classified Procedures EMG Sg Dyson MD [address] [place] [address] Phone: tel: fax: Sg Dyson MD [address] [place] [address] Phone: tel: fax: Referral ID Status Reason Start Date Expiration Date V isits Requested Visits Authorized [id number] Pending Review 09/11/2024 09/11/2025 1 1 Encounter Details Date Type Department Care Team (Latest Contact Info) Description 09/23/2024 8:44 AM EDT - 09/23/2024 11:59 PM EDT Hospital Encounter [facility] EMG [address] [place] [address] Kiel Hickey Edg Superficial peroneal nerve neuropathy, right (Primary Dx); Pain in left foot; Pain in right foot; Paresthesia of skin; Other specific joint derangements of right ankle, not elsewhere classified; Other specific joint derangements of left ankle, not elsewhere classified Discharge Disposition: Home or Self Care Social History Tobacco Use Types Packs/Day Years [...] on file documented as of this encounter Medications at Time of Discharge B Complex-Minerals Oral Tablet Take by mouth daily. Cholecalciferol, Vitamin D3, 50 mcg (2,000 unit) Oral Capsule Take 4,000 Units by mouth daily. cyanocobalamin 500 mcg Oral Tablet Take 500 mcg by mouth daily. cyclobenzaprine (FLEXERIL) 10 mg Oral Tablet Take 10 mg by mouth. 08/26/2024 estradioL (CLIMARA) 0.05 mg/[address] 1 Patch onto the skin once a week. fish oil OTC (OMEGA-3 DHA-EPA 300 MG) 300-1,000 mg Oral Capsule, Delayed Release(E.C.) Take 2 g by mouth daily. lactobacillus rhamnosus, GG, (CULTURELLE) 10 billion cell Oral Capsule Take 1 Capsule by mouth daily. MAGNESIUM ORAL Take by mouth. meloxicam (MOBIC) 15 mg Oral TabletIndications:Ar thritis of carpometacarpal (CMC) joint of right thumb Take 1 Tablet by mouth daily. 30 Tablet 2 11/07/2022 microfibrillar collagen Top Powder Apply topically as needed. mirabegron (MYRBETRIQ) 25 mg Oral Tablet Sustained Release 24 hr Take 1 Tablet by mouth daily. 30 Tablet 1 12/28/2021 multivit-min/folic ac/collagen (WOMEN'S MULTIVITAMIN COLLAGEN ORAL) Take 200 mg by mouth daily. multivitamin capsule Take 1 Capsule by mouth daily. TURMERIC ORAL Take by mouth. zinc gluconate 50 mg Oral Tablet Take 50 mg by mouth daily. pantoprazole (PROTONIX) 40 mg Oral Tablet, Delayed Release (E.C.) Take 40 mg by mouth daily. 03/24/2024 5 sulfamethoxazole-tri methoprim (BACTRIM DS) 800-160 mg Oral TabletIndications:Ri ght hand pain,Erythema Take 1 Tablet by mouth every 12 hours. 14 Tablet 09/04/2023 5 documented as of this encounter Discharge Disposition Disposition Code Departure Means Destination Home or Self Care documented in this encounter Plan of Treatment Upcoming Encounters Date Type Department Care Team (Late st Contact Info) Description 11/19/2024 9:15 AM EDT Office Visit [facility] [address] [place] [address] Laura Garduno MD [address] [place] [address] 03/31/2025 10:00 AM EST Office Visit [facility] [place] [address] [place] [id number] Siva Rey MD [address] [place], [place] [id number] documented as of this encounter Goals Goal Patient Goal Type Associated Problems Recent Progress Patient-Stated? Author Maintain a healthy diet, exercise regularly and maintain an ideal body weight General No Radha Acevedo Stay Tobacco Free Lifestyle Radha Glover documented as of this encounter Procedures Procedure Name Priority Date/Time Associated Diagnosis Comments EMG Routine 09/23/2024 Pain in left foot Pain in right foot Paresthesia of skin Other specific joint derangements of right ankle, not elsewhere classified Other specific joint derangements of left ankle, not elsewhere classified documented in this encounter Results * (ABNORMAL) EMG (09/23/2024) Impressions SEP OFFICE - 09/23/2024 This is an abnormal study. 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 This is otherwise a normal study of the bilateral lower extremities. Sg Dyson M.D. Diplomate, [place] [employer] Narrative SEP OFFICE - 09/23/2024 NCS Summary: Normal bilateral peroneal and tibial motor responses. Normal bilateral sural and left superficial peroneal sensory responses. Absent right superficial peroneal sensory response. Normal bilateral medial plantar and lateral plantar mixed responses. EMG Summary: Normal needle electrode examination of the right lower extremity and left fourth DI pedis/AH muscles. See chart for details. us Sg Dyson MD NEUROLOGY ORDERABLES Final R esult SEP OFFICE documented in this encounter Visit Diagnoses Diagnosis Superficial peroneal nerve neuropathy, right- Primary Pain in left foot Pain in limb Pain in right foot Pain in limb Paresthesia of skin Disturbance of skin sensation Other specific joint derangements of right ankle, not elsewhere classified Other specific joint derangements of left ankle, not elsewhere classified documented in this encounter Care Teams Facility Sales And Admin Relationship Specialty Start Date End Date Susie Chaidez [address] [place] [address] [place] [address] PCP - General 03/03/09 documented as of this encounter
--- OUTSIDE RECORDS SUMMARY | 2024-09-28 11:15 | XMS_ITS | Encounter Summary ---
Author Organization [place] [address] Care Team Providers Care Field Service Technician Name Role Phone Susie Chaidez Primary Care Provider [phone] Reason for Visit * Reason Comments Hypothyroidism Encounter Details Date Type Department Care Team (Late st Contact Info) Description 09/28/2024 11:15 AM EDT Office Visit [facility] [address] [facility] [address] [place] [phone] Siva Rey MD [address] [place] [address] Abnormal thyroid blood test (Primary Dx); Primary hypothyroidism; Family history of diabetes mellitus (DM); Weight gain Social History Tobacco Use Types Packs/Day Years [...] on file documented as of this encounter Last Filed Vital Signs Vital Sign Reading Time Taken Comments Blood Pressure 92/62 09/28/2024 11:24 AM EDT Pulse 83 09/28/2024 11:24 AM EDT Temperature - - Respiratory Rate 14 09/28/2024 11:2 4 AM EDT Oxygen Saturation - - Inhaled Oxygen Concentration - - Weight 66.2 kg (145 lb 14.4 oz) 025 11:24 AM EDT Height 170.2 cm (5' 7 ) 09/28/2024 11:2 4 AM EDT Body Mass Index 22.85 09/28/2024 11:24 AM EDT documented in this encounter Ordered Prescriptions Prescription Sig Dispense Quantity Refills Last Filled Start Date End Date SYNTHROID 125 mcg Oral TabletIndications:Pr imary hypothyroidism Take 1 Tablet by mouth daily. Brand-Medical ly necessary. 90 Tablet 3 09/28/2024 liothyronine (CYTOMEL) 5 mcg Oral TabletIndications:Pr imary hypothyroidism Take 2 Tablets by mouth daily. 180 Tablet 3 09/28/2024 documented in this encounter Progress Notes * Mervat Manley RMA - 09/28/2024 11:15 AM EDT Pharmacy verified. Refills pending. Medication reconciliation complete. * Siva Rey MD - 09/28/2024 11:15 AM EDT Subjective Subjective: Patient ID: Stephanie Bhatt is a 48 y.o. female. Chief Complaint Patient presents with Hypothyroidism HPI: Stephanie returns for follow up of hypothyroidism. She had follow up labs that I reviewed with her. GERD symptoms are better after stopping meloxicam. She reports good symptoms control with respect to hyperthyroidism. PMSFH: Patients past medical, family and social histories were reviewed and updated. There were no changesexcept as noted. Review of Systems Objective Current Outpatient Medications Medication Sig Dispense Refill B Complex-Minerals Oral Tablet Take by mouth daily. Cholecalciferol, Vitamin D3, 50 mcg (2,000 unit) Oral Capsule Take 4,000 Units by mouth daily. cyclobenzaprine (FLEXERIL) 10 mg Oral Tablet Take 10 mg by mouth. lactobacillus rhamnosus, GG, (CULTURELLE) 10 billion cell Oral Capsule Take 1 Capsule by mouth daily. liothyronine (CYTOMEL) 5 mcg Oral Tablet Take 2 Tablets by mouth daily. 180 Tablet 3 MAGNESIUM ORAL Take by mouth. meloxicam (MOBIC) 15 mg Oral Tablet Take 1 Tablet by mouth daily. 30 Tablet 2 microfibrillar collagen Top Powder Apply topically as needed. multivit-min/folic ac/collagen (WOMEN'S MULTIVITAMIN COLLAGEN ORAL) Take 200 mg by mouth daily. SYNTHROID 125 mcg Oral Tablet Take 1 Tablet by mouth daily. Brand-Medically necessary. 90 Tablet 3 TURMERIC ORAL Take by mouth. zinc gluconate 50 mg Oral Tablet Take 50 mg by mouth daily. cyanocobalamin 500 mcg Oral Tablet Take 500 mcg by mouth daily. (Patient not taking: Reported on 09/28/2024) estradioL (CLIMARA) 0.05 mg/[address] 1 Patch onto the skin once a week. (Patientnot taking: Reported on 09/28/2024) fish oil OTC (OMEGA-3 DHA-EPA 300 MG) 300-1,000 mg Oral Capsule, Delayed Release(E.C.) Take 2 g by mouth daily. (Patient not taking: Reported on 09/28/2024) mirabegron (MYRBETRIQ) 25 mg Oral Tablet Sustained Release 24 hr Take 1 Tablet by mouth daily. (Patient not taking: Reported on 09/28/2024) 30 Tablet 1 multivitamin capsule Take 1 Capsule by mouth daily. (Patient not taking: Reported on 09/28/2024) No current facility-administered medications for this visit. Objective: DATA REVIEW: LABS Labs reviewed in chart, results discussed with patient. Labs from [facility] reviewed TSH low at 0.014, normal FT3 and FT4 No results found for: TSHREFLEX Lab Results Component Value Date TSH 0.050 (L) 09/18/2024 TSH 0.045 (L) 03/13/2024 TSH 0.069 (L) 09/03/2023 Lab Results Component Value Date FREET4 1.38 09/18/2024 FREET4 1.46 03/13/2024 FREET4 1.29 09/03/2023 No components found for: FREET3 No results found for: THYROIDAB IMAGING Vitals: 09/28/24 1124 BP: 92/62 Pulse: 83 Resp: 14 Weight: 145 lb 14.4 oz (66.2 kg) Height: 5' 7 (1.702 m) Body mass index is 22.85 kg/m??. Physical Exam Vitals and nursing note reviewed. Neck: Thyroid: No thyroid mass, thyromegaly or thyroid tenderness. Assessment and Plan: Diagnoses and all orders for this visit: Abnormal thyroid blood test Primary hypothyroidism - liothyronine (CYTOMEL) 5 mcg Oral Tablet; Take 2 Tablets by mouth daily. Dispense: 180 Tablet; Refill: 3 - SYNTHROID 125 mcg Oral Tablet; Take 1 Tablet by mouth daily. Brand-Medically necessary. Dispense:90 Tablet; Refill: 3 - THYROID STIMULATING HORMONE; Future; Expected date: 02/28/2025 (Before Next Appt) - T4, FREE (THYROXINE); Future; Expected date: 02/28/2025 (Before Next Appt) - T3 FREE; Future; Expected date: 02/28/2025 (Before Next Appt) Family history of diabetes mellitus (DM) - INSULIN FASTING; Future; Expected date: 02/28/2025 (Before Next Appt) - LIPID PANEL REFLEX; Future; Expected date: 02/28/2025 (Before Next Appt) - COMPREHENSIVE METABOLIC PANEL; Future; Expected date: 02/28/2025 (Before Next Appt) - HEMOGLOBIN A1C; Future; Expected date: 02/28/2025 (Before Next Appt) Weight gain Assessment and Recommendations: Hypothyroidism well controlled. Her TSH remains low but this is her typical pattern. Her free T3 isnormal however. She has no hyperthyroidism symptoms. She will continue Synthroid YAJIARA 125 daily and Cytomel 10 mcg daily. Weight gain is stable. She is following healthy diet and exercising regularly. Family history of diabetes. Her HbA1c isimproved to 5.3% with diet and exercise. Return to office: Return in about 6 months (around 03/31/2025) for Hypothyroidism. documented in this encounter Plan of Treatment Upcoming Encounters Date Type Department Care Team (Late st Contact Info) Description 11/19/2024 9:15 AM EDT Office Visit [facility] [address] [place] [address] Laura Garduno MD [address] [place] [address] 03/31/2025 10:00 AM EST Office Visit [facility] [place] [address] [facility] [address] [place] [phone] Siva Rey MD [address] [place] [address] Scheduled Orders Name Type Priority Associated Diagnoses Orde r Schedule INSULIN FASTING Lab Routine Family history of diabetes mellitus (DM) Expected: 02/28/2025 (Approximate), Expires: 09/28/2025 LIPID PANEL REFLEX Lab Routine Family history of diabetes mellitus (DM) Expected: 02/28/2025 (Approximate), Expires: 09/28/2025 COMPREHENSIVE METABOLIC PANEL Lab Routine Family history of diabetes mellitus (DM) Expected: 02/28/2025 (Approximate), Expires: 09/28/2025 HEMOGLOBIN A1C Lab Routine Family history of diabetes mellitus (DM) Expected: 02/28/2025 (Approximate), Expires: 09/28/2025 THYROID STIMULATING HORMONE Lab Routine Primary hypothyroidism Expected: 02/28/2025 (Approximate), Expires: 09/28/2025 T4, FREE (THYROXINE) Lab Routine Primary hypothyroidism Expected: 02/28/2025 (Approximate), Expires: 09/28/2025 T3 FREE Lab Routine Primary hypothyroidism Expected: 02/28/2025 (Approximate), Expires: 09/28/2025 documented as of this encounter Goals Goal Patient Goal Type Associated Problems Recent Progress Patient-Stated? Author Maintain a healthy diet, exercise regularly and maintain an ideal body weight General No Radha Acevedo Stay Tobacco Free Lifestyle Radha Glover documented as of this encounter Visit Diagnoses Diagnosis Abnormal thyroid blood test- Primary Nonspecific abnormal results of thyroid function study Primary hypothyroidism Unspecified hypothyroidism Family history of diabetes mellitus (DM) Family history of diabetes mellitus Weight gain Abnormal weight gain documented in this encounter Discontinued Medications Medication Sig Discontinue Reason Start Date End Da te sulfamethoxazole-trimetho prim (BACTRIM DS) 800-160 mg Oral TabletIndications:Right hand pain,Erythema Take 1 Tablet by mouth every 12 hours. Patient Reported not taking medication 09/04/2023 09/28/2024 pantoprazole (PROTONIX) 40 mg Oral Tablet, Delayed Release (E.C.) Take 40 mg by mouth daily. Patient Reported not taking medication 03/24/2024 09/28/2024 liothyronine (CYTOMEL) 5 mcg Oral TabletIndications:Primary hypothyroidism Take 2 Tablets by mouth daily. Reorder 09/26/2023 09/28/2024 SYNTHROID 125 mcg Oral TabletIndications:Primary hypothyroidism Take 1 Tablet by mouth daily. Brand-Medically necessary. Reorder 09/26/2023 09/28/2024 documented as of this encounter Historical Medications * This list may reflect changes made after this encounter. cyclobenzaprine (FLEXERIL) 10 mg Oral Tablet Take 10 mg by mouth. 08/26/2024 added in this encounter Care Teams Field Service Technician Relationship Specialty Start Date End Date Susie Chaidez [facility] [place] [address] [place] [address] PCP - General 03/03/09 documented as of this encounter
--- OUTSIDE RECORDS SUMMARY | 2024-10-27 09:40 | XMS_ITS | Clinical Summary ---
Author Organization [facility] Address [address] [place] [address] Phone Care Team Providers Care Helmet Binder Name Role Phone Susie Chaidez Primary Care Provider [phone] Allergies Active Allergy Reactions Criticality Noted Date Comments Penicillins Rash Shellfish Containing Products Swelling 2013 Medications multivitamin capsule Take 1 Capsule by mouth daily. Active Cholecalciferol, Vitamin D3, 50 mcg (2,000 unit) Oral Capsule Take 4,000 Units by mouth daily. Active cyanocobalamin 500 mcg Oral Tablet Take 500 mcg by mouth daily. Active MAGNESIUM ORAL Take by mouth. Active B Complex-Minerals Oral Tablet Take by mouth daily. Active mirabegron (MYRBETRIQ) 25 mg Oral Tablet Sustained Release 24 hr Take 1 Tablet by mouth daily. 30 Tablet 1 12/29/19 22 Active Additional Information Patient not taking.Reason: Therapy Completed, Reported on 09/28/2024 meloxicam (MOBIC) 15 mg Oral TabletIndications: Arthritis of carpometacarpal (CMC) joint of right thumb Take 1 Tablet by mouth daily. 30 Tablet 2 11/08/19 23 Active estradioL (CLIMARA) 0.05 mg/[address] 1 Patch onto the skin once a week. Active zinc gluconate 50 mg Oral Tablet Take 50 mg by mouth daily. Active fish oil OTC (OMEGA-3 DHA-EPA 300 MG) 300-1,000 mg Oral Capsule, Delayed Release(E.C.) Take 2 g by mouth daily. Active lactobacillus rhamnosus, GG, (CULTURELLE) 10 billion cell Oral Capsule Take 1 Capsule by mouth daily. Active multivit-min/folic ac/collagen (WOMEN'S MULTIVITAMIN COLLAGEN ORAL) Take 200 mg by mouth daily. Active TURMERIC ORAL Take by mouth. A ctive microfibrillar collagen Top Powder Apply topically as needed. Active cyclobenzaprine (FLEXERIL) 10 mg Oral Tablet Take 10 mg by mouth. 08/27/19 25 Active liothyronine (CYTOMEL) 5 mcg Oral TabletIndications: Primary hypothyroidism Take 2 Tablets by mouth daily. 180 Tablet 3 09/29/19 25 Active SYNTHROID 125 mcg Oral TabletIndications: Primary hypothyroidism Take 1 Tablet by mouth daily. Brand-Medicall y necessary. 90 Tablet 3 09/29/19 25 Active sulfamethoxazole-t rimethoprim (BACTRIM DS) 800-160 mg Oral TabletIndications: Right hand pain,Erythema Take 1 Tablet by mouth every 12 hours. 14 Tablet 09/04/19 24 025 Discontinu ed(Patient Reported not taking medication ) pantoprazole (PROTONIX) 40 mg Oral Tablet, Delayed Release (E.C.) Take 40 mg by mouth daily. 03/24/20 24 025 Discontinu ed(Patient Reported not taking medication ) Active Problems Problem Noted Date Diagnosed Date Primary osteoarthritis of fi rst carpometacarpal joint of right hand 12/11/2023 Overview (08/13/2024): Stable Assessment & Plan (08/13/2024 2:33 PM EDT): Patient is on NSAIDs-meloxicam. Patient has had intra-articular steroid injections right first CMC joint from orthopedics with decrease in pain. Now has steroid atrophy of skin over that joint area. Patient uses first CMC brace. Follows Ortho-possible surgical intervention in the future. Keratitis sicca, both eyes 02/25/2023 Assessment & Plan (02/25/2023 11:37 AM EDT): Current treatment - none Educated patient and reassured - chronic condition that requires long-term treatment to remain asymptomatic. Recommend Refresh 1 gtt bid-qid OU (sample Digital given), hot compresses with lid massage, and lid scrubs (sample Ocusoft given). Consider fish oil supplements, punctal plugs or prescription medications in the future. Patient requested manifest refraction and new prescription today. Released new SRx (SVO). Educated on adaptation and visual hygiene (20/20/20 rule). Patient aware to call with worsening or persistent symptoms. Instructions printed in AVS. OD,OS TBUT - 10s 02/2023 Tear lab - not done Elliot's - 5 mm, 2 mm 02/2023 I reviewed and interpreted OCT scans from today's visit - nerve WNL; macula WNL. Stress incontinence 12/24/2022 Overview (12/24/2022): Added automatically from request for surgery [id number] Primary hypothyroidism 05/04/2020 Assessment & Plan (05/04/2020 7:47 PM EST): Symptom control is unclear at this time. Her TSH is much higher than it typically is. Her free T4 is in the upper range of normal. I recommend a trial of T3 supplementation in addition to her current dose of Synthroid. She will call if observing any symptoms of palpations or worsening of symptoms. I recommend a trial of Cytomel 5 mcg twice daily. Abnormal thyroid blood test 05/04/2020 Idiopathic hypotension 01/04/2020 Bilateral plantar fasciitis 06/19/2017 Overview (08/13/2024): Active Rt>left. Rt heel pain and swelling. Assessment & Plan (08/13/2024 7:04 PM EDT): PLAN Patient did continue using measures that have helped decrease heel pain. Depo IM today. Recommend seeing Dr. Mcintosh- Ortho/foot Background history Measures that have helped decrease pain include physical therapy-which is ongoing. Patient is also on NSAIDs as tolerated. Chiropractic treatment-shockwave therapy. Laser therapy from podiatry. 120mg methylprednisolone IM given without complication. The risks of methylprednisolone were reviewed by me with the patient, including (but not limited to) weight gain, osteoporosis acceleration, bone fractures, a-vascular necrosis, elevated blood sugars, and cataract acceleration. Arthritis of right knee 03/21/2016 Endometriosis 04/27/2014 Fibroadenoma of breast 11/06/2010 S/P endometrial ablation Encounters Date Type Department Care Team Description 09/28/2024 11:15 AM EDT Office Visit [facility] [address] [place] [address] Siva Rey MD Abnormal thyroid blood test (Primary Dx); Primary hypothyroidism; Family history of diabetes mellitus (DM); Weight gain 09/23/2024 8:44 AM EDT - 09/23/2024 11:59 PM EDT Hospital Encounter [facility] [address] [place] [address] Emg[facility]iel Edg Superficial peroneal nerve neuropathy, right (Primary Dx); Pain in left foot; Pain in right foot; Paresthesia of skin; Other specific joint derangements of right ankle, not elsewhere classified; Other specific joint derangements of left ankle, not elsewhere classified Discharge Disposition: Home or Self Care 09/21/2024 Results Follow-Up [address] [place] [phone] Siva Rey MD T3 FREE, T4, FREE (THYROXINE), THYROID STIMULATING HORMONE, Additional followed-up results: 4 09/18/2024 8:40 AM EDT Clinical Support MARIBETH JACKSON [address] [place] [phone] Matt Rice MA Primary hypothyroidism; Family history of diabetes mellitus (DM) 09/16/2024 Telephone MARIBETH [address] [place] [phone] No Pcp, Per Patient Appointment Needed (Lab / Call center not permitted to schedule ) 09/11/2024 Orders Only [facility] [address] [place] [phone] Marvin Darling, DPM Pain in left foot (Primary Dx); Pain in right foot; Paresthesia of skin; Other specific joint derangements of right ankle, not elsewhere classified; Other specific joint derangements of left ankle, not elsewhere classified 09/08/2024 4:30 PM EDT Office Visit [facility] [address] [place] [address] Radha Castellanos, PT Bilateral plantar fasciitis (Primary Dx) 08/25/2024 4:30 PM EDT Office Visit [facility] [address] [place] [address] Radha Castellanos, PT Bilateral plantar fasciitis (Primary Dx) 08/18/2024 3:30 PM EDT Office Visit [facility] [address] [place] [address] Radha Castellanos, PT Bilateral plantar fasciitis (Primary Dx) 08/13/2024 2:15 PM EDT Office Visit [facility] [address] [place] [address] Laura Garduno MD Bilateral plantar fasciitis (Primary Dx); Primary osteoarthritis of first carpometacarpal joint of right hand 08/10/2024 4:00 PM EDT Office Visit [facility] [address] [place] [address] Radha Castellanos, PT Bilateral plantar fasciitis (Primary Dx) 08/10/2024 Plan of Care Documentation [facility] [address] [place] [address] 08/06/2024 4:00 PM EDT Office Visit [facility] [address] [place] [address] Radha Castellanos, PT Bilateral plantar fasciitis (Primary Dx) 08/04/2024 4:00 PM EDT Office Visit [facility] [address] [place] [address] Radha Castellanos, PT Bilateral plantar fasciitis (Primary Dx) 07/30/2024 9:48 AM EDT - 07/30/2024 11:59 PM EDT Hospital Encounter [facility] [address] [place] [address] Encounter for screening mammogram for malignant neoplasm of breast Discharge Disposition: Home or Self Care 07/28/2024 4:00 PM EDT Office Visit [facility] [address] [place] [address] Olivia Ann, KYRA Bilateral plantar fasciitis (Primary Dx) from Last 3 Months Surgical History Surgery Date Site/Laterality Comments TUBAL LIGATION 05/13/2002 GALLBLADDER SURGERY 05/13/2005 ENDOMETRIAL ABLATION BREAST REDUCTION SURGERY 05/13/2011 DENTAL SURGERY CHOLECYSTECTOMY PELVIC LAPAROSCOPY LAPAROSCOPIC APPENDECTOMY 06/24/2014 N/A DIAGNOSTIC LAPAROSCOPY INCIDENTAL APPENDECTOMY ; Surgeon: Lefty Elliott MD; Location: [facility] MAIN OR; Service: General ABDOMINOPLASTY 06/10/2023 [facility] in [place], [place] Medical History Medical History Date Comments Headache(784.0) Urinary tract infection Hypothyroidism Family History Medical History Relation Name Comments Melanoma Father Melonoma Stroke Father Cataracts Mother Diabetes Mother Hypertension Mother Leukemia Paternal Grandfather Leukemi a Macular Degen Neg Hx Relation Name Status Comments Father Mother Paternal Grandfather Social History Tobacco Use Types Packs/Day Years Used Date Smoking Tobacco: Former Cigarettes Smokeless Tobacco: Never Tobacco Cessation:Counseling Given: Not Answered Alcohol Use Standard Drinks/Week Comments No 0 [...] file Not on file Not on file Obstetrics History Para Term AB IAB SAB Ectopic Multiple Livin g Live Births 1 1 1 Date Outcome GA Total Labor Labor/2nd/3rd Weight Sex Type Anes PTL Susanna A1 A5 Name Clin Para Last Filed Vital Signs Vital Sign Reading Time Taken Comments Blood Pressure 92/62 09/28/2024 11:24 AM EDT Pulse 83 09/28/2024 11:24 AM EDT Temperature 36.7 C (98.1 F) 08/13/2024 2:22 PM EDT Respiratory Rate 14 09/28/2024 11:2 4 AM EDT Oxygen Saturation 100% 05/03/2022 10: 11 AM EST Inhaled Oxygen Concentration - - Weight 66.2 kg (145 lb 14.4 oz) 025 11:24 AM EDT Height 170.2 cm (5' 7 ) 09/28/2024 11:2 4 AM EDT Body Mass Index 22.85 09/28/2024 11:24 AM EDT Plan of Treatment Upcoming Encounters Date Type Department Care Team (Late st Contact Info) Description 11/19/2024 9:15 AM EDT Office Visit [facility] [address] [place] [address] Laura Garduno MD [address] [place] [address] 03/31/2025 10:00 AM EST Office Visit [facility] [place] [address] [facility] [address] [facility] [address] [place] [phone] Siva Rey MD [address] [place] [address] Health Maintenance Due Date Last Done Comments Annual Wellness Exam 1976 Hepatitis B Vaccine (1 of 3 - 19+ 3-dose series) 1992 DTaP/TDaP/Td (1 - Tdap) 10/14/2017 10/13/2017 Cologuard 2018 Colon Cancer Screening 2018 Colonoscopy 2018 FIT 2018 Sigmoidoscopy 2018 Virtual Colonography 2018 Pap Smear 10/12/2023 10/11/2020, 10/12, 11/07/2012, Additional history exists Pneumococcal Vaccine 50+ (1 of 1 - PCV) 11/13/2023 Zoster (1 of 2) 11/13/2023 COVID-19 Vaccine ( season) 2024 03/29/2021, 07/02/2020, 06/02/2020 Influenza Vaccine (Season Ended) 2025 Cervical Cancer Screening 10/11/2025 HPV/Pap Cotest 10/11/2025 10/11/2020 Breast Cancer Screening 07/30/2026 07/31/19 25, 03/22/2023, 03/22/2023, Additional history exists Meningococcal B Vaccine Aged Out No l onger eligible based on patient's age to complete this topic Goals Goal Patient Goal Type Associated Problems Recent Progress Patient-Stated? Author Maintain a healthy diet, exercise regularly and maintain an ideal body weight General No Radha Acevedo Stay Tobacco Free Lifestyle No Radha Acevedo Procedures Procedure Name Priority Date/Time Associated Diagnosis Comments EMG Routine 09/23/2024 Pain in left foot Pain in right foot Paresthesia of skin Other specific joint derangements of right ankle, not elsewhere classified Other specific joint derangements of left ankle, not elsewhere classified INSULIN FASTING Routine 09/18/2024 8:42 AM EDT Family history of diabetes mellitus (DM) LIPID PANEL REFLEX Routine 09/18/2024 8: 42 AM EDT Family history of diabetes mellitus (DM) COMPREHENSIVE METABOLIC PANEL Routine 09/18/2024 8:42 AM EDT Family history of diabetes mellitus (DM) HEMOGLOBIN A1C Routine 09/18/2024 8:42 AM EDT Family history of diabetes mellitus (DM) THYROID STIMULATING HORMONE Routine 09/18/2024 8:42 AM EDT Primary hypothyroidism T4, FREE (THYROXINE) Routine 09/18/2024 8:42 AM EDT Primary hypothyroidism T3 FREE Routine 09/18/2024 8:42 AM EDT Primary hypothyroidism MM MAMMO DIGITAL MIGUEL SCREEN BILAT Routine 07/30/2024 10:16 AM EDT Encounter for screening mammogram for malignant neoplasm of breast IMMIGRATION SPECIALIST CYTOLOGY REQUEST (PAP ONLY) Routine 10/11/2020 11:39 AM EDT Well woman exam with routine gynecological exam from Last 3 Months or Most Recently Relevant to Health Maintenance Results * (ABNORMAL) EMG (09/23/2024) Impressions SEP OFFICE - 09/23/2024 This is an abnormal study. 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 This is otherwise a normal study of the bilateral lower extremities. Sg Dyson M.D. Diplomate, [place] [employer] Narrative SEP OFFICE [...] NEUROLOGY ORDERABLES Final R esult SEP OFFICE * (ABNORMAL) LIPID PANEL REFLEX (09/18/2024 8:42 AM EDT) Cholesterol 233(H) <200 mg/dL 09/18/2024 4:32 PM EDT [facility] Comment: < 200 Desirable 200 - 239 Borderline High >= 240 High Triglyceride 60 <150 mg/dL 09/18/2024 4:32 PM EDT [facility] Comment: < 150 Normal 150 - 199 Borderline High 200 - 499 High >= 500 Very High HDL 81 >=40 mg/dL 09/18/2024 4:32 PM EDT [facility] Comment: > 60 Optimal 40 - 60 Acceptable < 40 Low LDL Calculated 142(H) <100 mg/dL 09/18/2024 4:32 PM EDT [facility] Comment: < 100 Optimal 100 - 129 Near or above optimal 130 - 159 Borderline High 160 - 189 High >= 190 Very High The National Institutes of Health (NIH) equation is used for all lipid panels that report calculated LDL (LDL-C). Non-HDL-C Calculated 152(H) <=129 mg/dL 09/18/2024 4:32 PM EDT [facility] Comment: <130 Desirable 130-159 Above Desirable 160-189 Borderline High 190-219 High >= 220 Very High Fasting Specimen? Yes None 025 4:32 PM EDT [facility] Blood VENOUS BLOOD / Unknown Venipuncture / Unknown 09/18/2024 8:42 AM EDT 09/18/2024 8:42 AM EDT Siva Rey MD CHEMISTRY ORDERABLES Final Re sult Performing Organization Address [facility] de Phone Number [facility] [address] , [place] [phone] * INSULIN FASTING (09/18/2024 8:42 AM EDT) Insulin Fasting 8.10 2.60 - 24.90 mcIU/mL 09/18/2024 4:29 PM EDT [facility] Blood VENOUS BLOOD / Unknown Venipuncture / Unknown 09/18/2024 8:42 AM EDT 09/18/2024 8:42 AM EDT Narrative [facility] - 09/18/2024 4:29 PM EDT Ingestion of madelin doses of biotin (>5 mg/day) taken within 8 hours of drawing blood sample can interfere with this immunoassay test. Siva Rey MD CHEMISTRY ORDERABLES Final Re sult Performing Organization Address [facility] de Phone Number [facility] [address] , [place] [address] * T3 FREE (09/18/2024 8:42 AM EDT) T3 Free 2.97 2.00 - 4.40 pg/mL 09/18/2024 4:34 PM EDT [facility] Blood VENOUS BLOOD / Unknown Venipuncture / Unknown 09/18/2024 8:42 AM EDT 09/18/2024 8:42 AM EDT Narrative [facility] - 09/18/2024 4:34 PM EDT Ingestion of madelin doses of biotin (>5 mg/day) taken within 8 hours of drawing blood sample can interfere with this immunoassay test. Siva Rey MD CHEMISTRY ORDERABLES Final Re sult Performing Organization Address [facility] de Phone Number [facility] [address] , [place] [address] * (ABNORMAL) THYROID STIMULATING HORMONE (09/18/2024 8:42 AM EDT) TSH 0.050(L) 0.270 - 4.200 mcIU/mL 09/18/2024 4:34 PM EDT [facility] Blood VENOUS BLOOD / Unknown Venipuncture / Unknown 09/18/2024 8:42 AM EDT 09/18/2024 8:42 AM EDT Narrative [facility] - 09/18/2024 4:34 PM EDT Ingestion of madelin doses of biotin (>5 mg/day) taken within 8 hours of drawing blood sample can interfere with this immunoassay test. Siva Rey MD CHEMISTRY ORDERABLES Final Re sult Performing Organization Address [facility] de Phone Number [facility] [address] , [place] [address] * T4, FREE (THYROXINE) (09/18/2024 8:42 AM EDT) Free T4 1.38 0.80 - 1.80 ng/dL 09/18/2024 4:34 PM EDT [facility] Blood VENOUS BLOOD / Unknown Venipuncture / Unknown 09/18/2024 8:42 AM EDT 09/18/2024 8:42 AM EDT Narrative [facility] - 09/18/2024 4:34 PM EDT Ingestion of madelin doses of biotin (>5 mg/day) taken within 8 hours of drawing blood sample can interfere with this immunoassay test. us Siva Rey MD CHEMISTRY ORDERABLES Final Re sult Performing Organization Address [facility] Co de Phone Number [facility], [address] , [place] [address] * HEMOGLOBIN A1C (09/18/2024 8:42 AM EDT) Hgb A1C 5.3 4.2 - 5.6 % 09/18/2024 5:07 PM EDT [facility] Est. Avg Glucose 105 mg/dL 09/18/2024 5:07 PM EDT [facility] Blood VENOUS BLOOD / Unknown Venipuncture / Unknown 09/18/2024 8:42 AM EDT 09/18/2024 8:42 AM EDT Narrative [facility], [facility] - 09/18/2024 5:07 PM EDT REFERENCE RANGE: Normal: 4.0-5.6% Pre-diabetes: 5.7-6.4% Provisional diagnosis of diabetes: >6.4% Hgb F>10% and anything which shortens red cell survival, such as hemolytic anemia, or unstable hemoglobin variants such as HbSS, HbSC, or HbCC, will lower the HbA1c value associated with a given level of glycemic control. Siva Rey MD CHEMISTRY ORDERABLES Final Re sult Performing Organization Address [facility] Co de Phone Number [facility] [employer], [address] , [place] [address] * (ABNORMAL) COMPREHENSIVE METABOLIC PANEL (09/18/2024 8:42 [...] 09/18/2024 4:32 PM EDT [facility] Calcium 10.1 8.6 - 10.4 mg/dL 09/18/2024 4:32 PM EDT [facility] Glucose Lvl 86 70 - 99 mg/dL 09/18/2024 4:32 PM EDT [facility] BUN 16 6 - 20 mg/dL 09/18/2024 4:32 PM EDT [facility] Creatinine 0.61 0.51 - 1.30 mg/dL 09/18/2024 4:32 PM EDT [facility] Albumin 4.4 3.5 - 5.2 gm/dL 09/18/2024 4:32 PM EDT [facility] Total Protein 7.1 6.4 - 8.3 gm/dL 09/18/2024 4:32 PM EDT [facility] Bili Total 0.4 0.2 - 1.3 mg/dL 09/18/2024 4:32 PM EDT [facility] ALT 16 <=41 U/L 09/18/2024 4:32 PM EDT [facility] AST 22 <=40 U/L 09/18/2024 4:32 PM EDT [facility] Alk Phos 61 36 - 123 U/L 09/18/2024 4:32 PM EDT [facility] eGFR (CKD-EPIcr 2020) 108 >=60 mL/min/1.7 3 m2 09/18/2024 4:32 PM EDT [facility] Comment:Estimated GFR was ca lculated using the CKD-EPIcr (2020) equation refit without race. The equation is recommended by the National Kidney Foundation - [place] [employer] Nephrology Task Force. Blood VENOUS BLOOD / Unknown Venipuncture / Unknown 09/18/2024 8:42 AM EDT 09/18/2024 8:42 AM EDT us Siva Rey MD CHEMISTRY ORDERABLES Final Re sult [facility] [address] [facility] [address] , [place] [address] * MM MAMMO DIGITAL MIGUEL SCREEN BILAT (07/30/2024 10:16 AM EDT) Anatomical Region Laterality Modality Breast Bilateral Mammography 07/30/2024 10:1 6 AM EDT Impressions 07/30/2024 11:25 AM EDT Negative ([id number]) RECOMMENDATION: Routine Screening Mammogram in 1 Year Bilateral . . COMMENTS: DISCLAIMER *The patient was notified by MyChart or mail of the results for this examination. *The patient's information was entered into a reminder system with a target due date for the next breast imaging, in accordance with the [place] [employer] and the Society of Breast Imaging recommendations. *Breast Imaging has a false negative rate of 15%. *Any patient with a palpable abnormality, unexplained by breast imaging, should be managed on a clinical basis by the attending physician. Narrative 07/30/2024 11:25 AM EDT EXAM: MM MAMMO DIGITAL MIGUEL SCREEN BILAT EXAM DATE: 07/30/2024 10:16 AM INDICATION: Z12.31-Encounter for screening mammogram for malignant neoplasm of [id number] COMPARISON STUDIES: Compared with prior studies the most recent being 03/22/2023 MM MAMMO DIGITAL MIGUEL DIAGN BILAT at [facility] 06/29/2022 MM MAMMO DIGITAL MIGUEL SCREEN BILAT at [facility] 07/04/2021 MM MAMMO DIGITAL MIGUEL SCREEN BILAT at [facility] TISSUE DENSITY: The breasts are heterogeneously dense, which may obscure small masses. FINDINGS: No mammographic evidence of malignancy. Procedure Note Cara Tovar MD - 07/30/2024 EXAM: MM MAMMO DIGITAL MIGUEL SCREEN BILAT EXAM DATE: 07/30/2024 10:16 AM INDICATION: Z12.31-Encounter for screening mammogram for malignantneoplasm of [id number] COMPARISON STUDIES: Compared with prior studies the most recent being 03/22/2023 MM MAMMO DIGITAL MIGUEL DIAGN BILAT at [facility] 06/29/2022 MM MAMMO DIGITAL MIGUEL SCREEN BILAT at [facility] 07/04/2021 MM MAMMO DIGITAL MIGUEL SCREEN BILAT at [facility] TISSUE DENSITY: The breasts are heterogeneously dense, which may obscuresmall masses. FINDINGS: No mammographic evidence of malignancy. IMPRESSION: Negative ([id number]) RECOMMENDATION: Routine Screening Mammogram in 1 Year Bilateral . . COMMENTS: DISCLAIMER *The patient was notified by MyChart or mail of the results for this examination. *The patient's information was entered into a reminder system with atarget due date for the next breast imaging, in accordance with the [place] [employer] and the Society of Breast Imaging recommendations. *Breast Imaging has a false negative rate of 15%. *Any patient with a palpable abnormality, unexplained by breast imaging,should be managed on a clinical basis by the attending physician. Enid Hercules INTERNAL INVESTIGATOR IMG MAMMOGRAPHY ORDERABLES Fin al Result * IMMIGRATION SPECIALIST CYTOLOGY REQUEST (PAP ONLY) (10/11/2020 11:39 AM EDT) CASE REPORT Gynecologic Cytology Report Case: [id number] Authorizing Provider: Pedro Wood MD Collected: 10/11/2020 1139 Ordering Location: [facility] Edg Received: 10/11/2020 1139 First Screen: Henna Nguyen CT Specimen: LIQUID-BASED PAP - CERVICAL/ENDOCERV ICAL, Cervix, Endocervical 10/13/2020 9:48 AM EDT [facility] PAP FINAL DIAGNOSIS Negative for intraepithelial lesion or malignancy 10/13/2020 9:48 AM EDT [facility] at 0948 EDT MICROSCOPIC DESCRIPTION Microscopic examination is performed and the findings corroborate the diagnosis 10/13/2020 9:48 AM EDT [facility] PAP SMEAR ADEQUACY Satisfactory for evaluation 10/13/2020 9:48 AM EDT [facility] ENDOCERVICAL T-ZONE Transformation zone present 10/13/2020 9:48 AM EDT [facility] EMBEDDED IMAGES 9:48 AM EDT [facility] PAP DISCLAIMER The Pap Smear is a screening test that aids in the detection of cervical cancer and cancer precursors. Both false positive and false negative results can occur. The test should be used at regular intervals, and positive results should be confirmed before definitive therapy. Processed using the ThinPrep Statistical Developer Automated cytology screening device ([employer]). 10/13/2020 9:48 AM EDT [facility] Thin Prep ENDOCERVICAL STRUCTURE / Unknown 10/11/2020 11:39 AM EDT 10/11/2020 11:39 AM EDT us Pedro Wood MD CYTOLOGY ORDERABLES Final R esult [facility] [address] [place] [address] from Last 3 Months or Most Recently Relevant to Health Maintenance Insurance ANTHEM PPO PPO ANTHEM PPO ANTHEM PPO ANTHEM PPO Care Teams Helmet Binder Relationship Specialty Start Date End Date Susie Chaidez [address] [place] [facility] [address] [place] [address] PCP - General 03/03/09
--- OUTSIDE RECORDS SUMMARY | 2024-10-27 09:40 | XMS_ITS | Referral Summary ---
Author Organization [facility] Address [address] [facility] [place] [address] Phone Care Team Providers Care Hand Hardener Name Role Phone Eduard Chaidez Primary Care Provider [phone] Allergies No known active allergies Medications levothyroxine (SYNTHROID, LEVOTHROID) 125 MCG TABS Take 125 mcg by mouth daily. Active Active Problems No known active problems Social History Tobacco Use Types Packs/Day Years Used Date Smoking Tobacco: Never Passive Smoke Exposure: Never Smokeless Tobacco: Never Tobacco Cessation:Counseling Given: Not Answered Alcohol Use Standard Drinks/Week Comments Never 0 (1 standard drink = 0.6 oz pur e alcohol) Food Insecurities Answer Date Recorded Worried about running out of food Not on file 06/04/2023 Food Bought Not on file 06/04/2023 Housing/Utilities Answer Date Recorded Worried about losing home Not on file 2023 Stayed outside house Not on file 06/04/2023 Unable to get utilities Not on file 06/04/19 24 Interpersonal Safety Answer Date Record ed Feel physically or emotionally unsafe where curr ently live Not on file 06/04/2023 Harm by anyone Not on file 06/04/2023 Emotionally Harmed Not on file 06/04/2023 Transportation Answer Date Recorded Worried about transportation Not on file Utilities Answer Date Recorded Worried about losing home Not on file 2023 Stayed outside house Not on file 09/16/2023 Unable to get utilities Not on file 09/16/19 Comments Unknown Sex and Gender Information Value Date Recorded Sex Assigned at Not on file Legal Sex Female 4:37 PM EST Gender Identity Not on file Sexual Orientation Not on file Last Filed Vital Signs Vital Sign Reading Time Taken Comments Blood Pressure - - Pulse - - Temperature - - Respiratory Rate - - Oxygen Saturation - - Inhaled Oxygen Concentration - - Weight 67.1 kg (148 lb) 05/01/2022 1:09 PM EST Height 170.2 cm (5' 7 ) 05/01/2022 1:09 PM EST Body Mass Index 23.18 05/01/2022 1:09 PM EST Plan of Treatment Not on file Insurance Care Teams Hand Hardener Relationship Specialty Start Date End Date Eduard Chaidez [address] [place] [address] PCP - General 05/01/22
--- OUTSIDE RECORDS SUMMARY | 2024-10-27 09:40 | XMS_ITS | Encounter Summary ---
Author Organization [place] [address] Care Team Providers Care Nurse Practitioner Home Assessments Name Role Phone Susie Chaidez Primary Care Provider [phone] Reason for Referral * EMG (Routine) - Pending Review Specialty Diagnoses / Procedures Referred By Contact Referred To Contact Psychiatry & Neurology-Neurology / Electromyography Diagnoses Pain in left foot Pain in right foot Paresthesia of skin Other specific joint derangements of right ankle, not elsewhere classified Other specific joint derangements of left ankle, not elsewhere classified Procedures EMG Sg Dyson MD [address] [place] [address] Phone: tel: fax: Sg Dyson MD [address] [place] [address] Phone: tel: fax: Referral ID Status Reason Start Date Expiration Date V isits Requested Visits Authorized [id number] Pending Review 09/11/2024 09/11/2025 1 1 Encounter Details Date Type Department Care Team (Late Contact Info) Description 09/11/2024 Orders Only [facility] EMG [address] [facility] [address] [place] [address] Marvin Darling, DPM [address] [place] [address] Pain in left foot (Primary Dx); Pain in right foot; Paresthesia of skin; Other specific joint derangements of right ankle, not elsewhere classified; Other specific joint derangements of left ankle, not elsewhere classified Social History Tobacco Use Types Packs/Day Years [...] on file documented as of this encounter Plan of Treatment Upcoming Encounters Date Type Department Care Team (Late Contact Info) Description 11/19/2024 9:15 AM EDT Office [facility] [address] [place] [address] Laura Garduno MD [address] [place] [address] 03/31/2025 10:00 AM EST Office Visit [facility] [place] [address] [facility] [address] [place] [id number] Siva Rey MD [address] [place], [place] [id number] documented as of this encounter Goals Goal Patient Goal Type Associated Problems Recent Progress Patient-Stated? Author Maintain a healthy diet, exercise regularly and maintain an ideal body weight General No Radha Acevedo Stay Tobacco Free Lifestyle No Radha Acevedo documented as of this encounter Results * (ABNORMAL) EMG (09/23/2024) Impressions SEP OFFICE - 09/23/2024 This is an abnormal study. 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 This is otherwise a normal study of the bilateral lower extremities. Sg Dyson M.D. Diplomate, [place] [employer] Narrative SEP OFFICE [...] documented in this encounter Visit Diagnoses Diagnosis Pain in left foot- Primary Pain in limb Pain in right foot Pain in limb Paresthesia of skin Disturbance of skin sensation Other specific joint derangements of right ankle, not elsewhere classified Other specific joint derangements of left ankle, not elsewhere classified Superficial peroneal nerve neuropathy, right- Primary Pain in left foot Pain in limb Pain in right foot Pain in limb Paresthesia of skin Disturbance of skin sensation Other specific joint derangements of right ankle, not elsewhere classified Other specific joint derangements of left ankle, not elsewhere classified documented in this encounter Care Teams Nurse Practitioner Home Assessments Relationship Specialty Start Date End Date Susie Chaidez [address] [place] [address] [address] [place] [address] PCP - General 03/03/09 documented as of this encounter
--- OUTSIDE RECORDS SUMMARY | 2024-10-27 09:40 | XMS_ITS | Clinical Summary ---
Author Organization [facility] Address [address] [place] [address] Care Team Providers Care Ironer Or Presser Name Role Phone Historical, Centricity Primary Care Provider Sherry vailable Source Comments This information has been disclosed to you from confidential records protectedfrom disclosure by state law. You shall make no further disclosure of thisinformation without the specific, written, and informed release of theindividual to whom it pertains, or as otherwise permitted by law. A generalauthorization for the release of medical or other information is not sufficientfor the purposes of therelease of HIV test results or diagnoses. [id number] Active Problems Problem Noted Date Diagnosed Date Supervision of normal first 09/13/2010 Routine general medical exam ination at a health care facility 11/06/2005 Social History Tobacco Use Types Packs/Day Years Used Date Smoking Tobacco: Never Assessed Comments Unknown Sex and Gender Information Value Date Recorded Sex Assigned at Not on file Legal Sex Female 4:23 PM EST Gender Identity Not on file Sexual Orientation Not on file Plan of Treatment Not on file Care Teams Ironer Or Presser Relationship Specialty Start Date End Date Arnold Dupree PCP - General 11/06/05
--- OUTSIDE RECORDS SUMMARY | 2024-10-27 09:40 | XMS_ITS | Encounter Summary ---
Author Organization [place] [address] Care Team Providers Care Installer Helper Name Role Phone Susie Chaidez Primary Care Provider [phone] Reason for Visit * Reason Onset Date Comments Appointment Needed 09/16/2024 Lab / Call ce nter not permitted to schedule Encounter Details Date Type Department Care Team (Late st Contact Info) Description 09/16/2024 Telephone SEP Lisette [address] [place] [address] No Pcp, Per Patient Appointment Needed (Lab / Call center not permitted to schedule ) Social History Tobacco Use Types Packs/Day Years [...] on file documented as of this encounter Miscellaneous Notes * Telephone Encounter - Chiquita Martinez RMA - 09/16/2024 2:01 PM EDT Appt scheduled * Telephone Encounter - Christian Lizama MA - 09/16/2024 11:08 AM EDT Select the most appropriate reason for this telephone message: Appointment Needed Appointment Requested By: Patient Provider Preference: Lab Type of Appt Needed: Other - labs Detailed Reason for Appt: Lab work per - orders in Epic Requested Timeframe: Tomorrow morning sometime Reason Scheduling Assistance is Needed: Call Center not permitted to schedule Return Method of Communication: Phone Call Additional Information: She says she always completes her labs in the [place] office / Thank you! documented in this encounter Plan of Treatment Upcoming Encounters Date Type Department Care Team (Late st Contact Info) Description 11/19/2024 9:15 AM EDT Office [facility] [address] [place] [address] Laura Garduno MD [address] [place] [address] 03/31/2025 10:00 AM EST Office Visit [facility] [place] [address] [phone] Siva Rey MD [address] [place] [address] documented as of this encounter Goals Goal Patient Goal Type Associated Problems Recent Progress Patient-Stated? Author Maintain a healthy diet, exercise regularly and maintain an ideal body weight General No Radha Acevedo Stay Tobacco Free Lifestyle Radha Glover documented as of this encounter Visit Diagnoses Not on filedocumented in this encounter Care Teams Installer Helper Relationship Specialty Start Date End Date Susie Chaidez [address] [place] [facility] [address] [place] [address] PCP - General 03/03/09 documented as of this encounter
--- OUTSIDE RECORDS SUMMARY | 2024-10-27 09:40 | XMS_ITS | Clinical Summary ---
Author Organization [facility] Address [address] [place] [address] Phone Care Team Providers Care Hand Picker Name Role Phone Eduard Chaidez Primary Care Provider [phone] Allergies No known active allergies Medications levothyroxine [...] 05/01/2022 1:09 PM EST Plan of Treatment Health Maintenance Due Date Last Done Comments DTap,Tdap,and Td (1 - Tdap) 1984 Pap Screening 1994 Mammogram Screening 2013 Colonoscopy 2018 Pneumococcal 50+ (1 of 1 - PCV) 11/13/2023 Shingrix (#1) 11/13/2023 Influenza Vaccine (Season Ended) 2025 RSV Vaccine (60+ or ) (1 - 1-dose 75+ series) 2048 HPV Aged Out No longer eligi ble based on patient's age to complete this topic Meningococcal conjugate mike nt 4 (MCV4) Aged Out No longer eligible b ased on patient's age to complete this topic RSV Immunization (<20 months) Aged Out No longer eligible based on patient's age to complete this topic Insurance Care Teams Hand Picker Relationship Specialty Start Date End Date Eduard Chaidez [address] [place] [address] PCP - General 05/01/22
--- OUTSIDE RECORDS SUMMARY | 2024-10-27 09:40 | XMS_ITS | Encounter Summary ---
Author Organization [place] [address] Care Team Providers Care Vtc Technician Name Role Phone Susie Chaidez Primary Care Provider [phone] Encounter Details Date Type Department Care Team (Late st Contact Info) Description 09/21/2024 Results Follow-Up [facility] [place] [address] [facility] [address] [place] [address] Siva Rey MD [address] [place] [address] T3 FREE, T4, FREE (THYROXINE), THYROID STIMULATING HORMONE, Additional followed-up results: 4 Social History Tobacco Use Types Packs/Day Years [...] Visit [facility] [address] [place] [address] Laura Garduno MD [address] [place] [address] 03/31/2025 10:00 AM EST Office Visit [facility] [place] [address] [phone] Siva Rey MD [address] [place], [place] [id number] documented as of this encounter Goals Goal Patient Goal Type Associated Problems Recent Progress Patient-Stated? Author Maintain a healthy diet, exercise regularly and maintain an ideal body weight General No Radha Acevedo Stay Tobacco Free Lifestyle No Radha Acevedo documented as of this encounter Visit Diagnoses Not on filedocumented in this encounter Care Teams Vtc Technician Relationship Specialty Start Date End Date Susie Chaidez [facility] [address] [place] [address] PCP - General 03/03/09 documented as of this encounter
[2024-10-27 10:36] LABS: Basophils % 0.4 % (0.1-2.0); Eosinophils # 0.1 Kmm3 (0.0-0.4); Hematocrit 36.3 % (37.0-47.0); Hemoglobin 11.7 g/dL (12.2-16.2); Immature Granulocytes # 0.01 10^3uL; Immature Granulocytes % 0.2 %; Lymphocytes # 1.4 K/mm3 (0.7-4.5); Lymphocytes % 28.9 % (10-50); Mean Corpuscular HGB Conc 32.2 g/dL (31.8-35.4); Mean Corpuscular Hemoglobin 30.4 pg (27.0-31.2); Mean Corpuscular Volume 94.3 fl (81-99); Mean Platelet Volume 9.7 fl (7.4-10.4); Monocytes # 0.4 K/mm3 (0.1-1.0); Neutrophils # 2.9 K/mm3 (1.8-7.8); Neutrophils % 61.5 % (37.0-80.0); Nucleated Red Blood Cells # 0 10^3/uL; Nucleated Red Blood Cells % 0 %; Platelet Count 255 K/mm3 (142-424); Red Blood Count 3.85 M/mm3 (4.20-5.40); Red Cell Distribution Width 13.3 % (11.5-17.5); Red Cell Distribution Width-SD 46.1 fL; White Blood Count 4.8 K/mm3 (4.8-10.8)
[2024-10-27 11:21] LABS: Chloride 104 mmol/L (98-107); Potassium 4.5 mmoL/L (3.5-5.1); Sodium 137 mmol/L (136-145)
[2024-10-27 11:24] LABS: Alanine Aminotransferase 20 U/L (12-78); Albumin/Globulin Ratio 1.9 (1.1-1.8); Alkaline Phosphatase 55 U/L (38-126); Anion Gap 7.5 mEq/L (5-15); Aspartate Amino Transferase 26 U/L (14-36); Bilirubin,Total 0.3 mg/dl (0.2-1.3); Blood Urea Nitrogen 17 mg/dl (7-17); Calcium 9.2 mg/dl (8.4-10.2); Carbon Dioxide 30 mmol/L (22.0-30.0); Estimated Glomerular Filt Rate 106 ml/min (>60); GFR (African American) 128 ML/MIN (>60); Globulin 2.1 g/dL (1.3-3.2); Glucose 81 mg/dl (74-100); Total Protein,Serum 6.1 g/dl (6.3-8.2)
[2024-10-27 11:30] LABS: Hemoglobin A1C 4.9 % (4.0-6.0)
[2024-10-27 11:40] LABS: 25-OH Vitamin D, Total 97.5 ng/mL (30-100)
[2024-10-27 11:59] LABS: Ferritin 34.2 ng/ml (6.24-137)
[2024-10-27 12:35] LABS: Vitamin B12 979 pg/mL (239-931)
[2024-10-28 12:14] LABS: FSH 4.3 mIU/mL (.); LH 4.9 mIU/mL (.); Progesterone 0.2 ng/mL (.); Testosterone,Total 9 ng/dL (4-50)
== END 2024-10-27 23:59 | disposition home or self-care (01) ==
LOC: LAB 09:38
PROVIDERS: PCP Nurse Practitioner; Visit Provider Obstetrics & Gynecology
DX: Z01.419 Encounter for gynecological examination (general) (routine) without abnormal findings (principal); E55.9 Vitamin D deficiency, unspecified; E53.8 Deficiency of other specified B group vitamins; N39.3 Stress incontinence (female) (male); N95.1 Menopausal and female climacteric states; R14.0 Abdominal distension (gaseous); R53.83 Other fatigue
CPT/HCPCS: 36415; 80053; 82306; 82607; 82670; 82728; 83001; 83002; 83036; 83525; 83735; 84144; 84403; 85025

== ENCOUNTER 2024-12-07 19:32 | Outpatient (CLI) | payer BC, SELFPAY ==
--- OUTSIDE RECORDS SUMMARY | 2024-12-07 19:37 | XMS_ITS | Clinical Summary ---
Author Organization [facility] Address [address] [facility] [address] Phone Care Team Providers Care Auto Detailer Name Role Phone Eduard Chaidez Primary Care Provider [phone] Allergies No known active allergies Medications levothyroxine [...] PCV) 11/13/2023 Shingrix (#1) 11/13/2023 Influenza Vaccine (#1) 2025 RSV Vaccine (60+ or ) (1 [...] to complete this topic Insurance Care Teams Auto Detailer Relationship Specialty Start Date End Date Eduard Chaidez [address] [place] [address] PCP - General 05/01/22
--- OUTSIDE RECORDS SUMMARY | 2024-12-07 19:37 | XMS_ITS | Clinical Summary ---
Author Organization [facility] Address [address] [place] [address] Care Team Providers Care Middle School French Teacher Name Role Phone Diomedes Enid Devang MARROQUIN Primary Care Provider [phone] Allergies Active Allergy Reactions Criticality Noted Date Comments Penicillins Rash Low 06/13/2019 Shellfish-Derived Products Swelling High 4 Medications Synthroid 125 MCG tablet TAKE 1 TABLET BY MOUTH DAILY. BRAND-MEDICALLY NECESSARY. Active liothyronine (CYTOMEL) 5 MCG tablet Take 2 tablets by mouth 2 (Two) Times a Day. 3 Active MAGNESIUM PO Take 200 mg by mouth Daily. Active vitamin D3 125 MCG (5000 UT) capsule capsule Take 1 capsule by mouth Daily. Active cyanocobalamin (VITAMIN B-12) 500 MCG tablet Take 5 tablets by mouth 2 (Two) Times a Day. Active mupirocin (BACTROBAN) 2 % ointment Patient has not yet begun taking 4 Active Probiotic Product (PROBIOTIC BLEND PO) Take 1 tablet by mouth Daily. Active Multiple Vitamins-Minera ls (ZINC PO) Take 1 tablet by mouth Daily. Active NON FORMULARY MULTIVITAMIN PRESCRIBED BY DR. BOYER FOR PREOP Active pantoprazole (PROTONIX) 40 MG EC tablet Take 1 tablet by mouth Daily. 4 Active Active Problems Problem Noted Date Diagnosed Date Encounter for cosmetic procedure 06/11/2023 Social History Tobacco Use Types Packs/Day Years Used Date Smoking Tobacco: Former Cigarettes 1 23 1 - 2013 Passive Smoke Exposure: Past Smokeless Tobacco: Never Tobacco Cessation:Counseling Given: Not Answered Alcohol Use Standard Drinks/Week Comments Not Currently 0 (1 standard drink = 0.6 oz pur e alcohol) AUDIT-C Answer Date Recorded Q1: How often do you have a drink containing alcohol? Never 06/11/2023 Q2: How many drinks containi ng alcohol do you have on a typical day when you are drinking? Patient does not drink Q3: How often do you have si x or more drinks on one occasion? Never 06/11/2023 Abuse Screen Answer Date Recorded Feels Unsafe at Home or Work/School no 04/16/2024 Feels Threatened by Someone no 09/2023 Does Anyone Try to Keep You From Having Contact with Others or Doing Things Outside Your Home? no 04/16/2024 Physical Signs of Abuse Present no 04/16/2024 Housing Stability Answer Date Recorded Current Living Arrangements home 09/2023 Potentially Unsafe Housing Conditions Not on alejandra e 04/16/2024 Disabilities Answer Date Recorded Difficulty Concentrating, Remembering or Making Decisions no 04/16/2024 Difficulty Managing Errands Independently no 04/16/2024 Education Answer Date Recorded Help with school or training? Not on file Preferred Language Paraguayan 04/08/2024 Comments No Sex and Gender Information Value Date Recorded Sex Assigned at Not on file Legal Sex Female 12:22 PM EST Gender Identity Not on file Sexual Orientation Not on file Last Filed Vital Signs Vital Sign Reading Time Taken Comments Blood Pressure 118/67 04/16/2024 12:15 PM EST Pulse 64 04/16/2024 12:15 PM EST Temperature 36.5 C (97.7 F) 04/16/2024 10:33 AM EST Respiratory Rate 15 04/16/2024 12:15 PM EST Oxygen Saturation 100% 04/16/2024 12:15 PM EST Inhaled Oxygen Concentration - - Weight 69.2 kg (152 lb 8.9 oz) 04/16/2024 7:23 A M EST Height 170.2 cm (5' 7.01 ) 04/16/2024 7:23 AM ES T Body Mass Index 23.89 04/16/2024 7:23 AM EST Plan of Treatment Health Maintenance Due Date Last Done Comments Annual Gynecologic Pelvic an d Breast Exam 1973 TDAP/TD VACCINES (1 - Tdap) 1992 COLOGUARD 2018 COLON CANCER SCREENING 5 YEA R SIGMOIDOSCOPY 2018 COLONOSCOPY 2018 [address]AL CANCER SCREENING 2018 CT COLONOGRAPHY 2018 FECAL OCCULT BLOOD TEST 2018 FIT Testing (1 year) 2018 ANNUAL PHYSICAL 06/03/2023 HEPATITIS C SCREENING 06/03/2023 LUNG CANCER SCREENING 11/13/2023 Pneumococcal Vaccine 50+ (1 of 1 - PCV) 11/13/2023 ZOSTER VACCINE (1 of 2) 11/13/2023 COVID-19 Vaccine (4 - 2023-2 5 season) 2024 03/29/2021, 07/02/2020, 06/02/2020 INFLUENZA VACCINE 02/10/2025 MAMMOGRAM 03/22/2025 03/22/2023, 03/13, 06/29/2022, Additional history exists Medical Devices Implanted Type Area Sash Assembler Device Identifier Shelf Expiration Date Model / Serial / Lot Dev Contrl Tiss Stratafix Spiral Mncryl Ud 3/0 Pls 60cm - [id number] Implanted:Qty : 1 on 06/11/2023 by Mj Boyer MD at [facility] Implant Left: Abdomen [employer] J 10/10/2024 [id number] / / [id number] Dev Contrl Tiss Stratafix Spiral Mncryl Ud 3/0 Pls 60cm - [id number] Implanted:Qty : 1 on 06/11/2023 by Mj Boyer MD at [facility] Implant Right: Abdomen [employer] J 10/10/2024 [id number] / / [id number] Dev Contrl Tiss Stratafix Spiral Mncryl Ud 3/0 Pls 30cm - [id number] Implanted:Qty : 1 on 06/11/2023 by Mj Boyer MD at [facility] Implant Left: Back [employer] J 01/10/2025 [id number] / / [id number] Dev Contrl Tiss Stratafix Spiral Mncryl Ud 3/0 Pls 30cm - [id number] Implanted:Qty : 1 on 06/11/2023 by Mj Boyer MD at [facility] Implant Right: Back [employer] [place] AND J 01/10/2025 [id number] / / [id number] Dev Contrl Tiss Stratafix Spiral Mncryl Ud 3/0 Pls 60cm - [id number] Implanted:Qty : 2 on 04/16/2024 by Mj Boyer MD at [facility] Implant N/A: Arm [employer] J 10/10/2025 [id number] / / [id number] Advance Directives * CPR (Attempt to Resuscitate) (Latest Code Status on File) Date Activated Date Inactivated Comments 06/11/2023 2:26 PM 06/12/2023 1:22 PM Question Answer Comments Code Status (Patient has no pulse and is not breathing): CPR (Attempt to Resuscitate) Medical Interventions (Patie nt has pulse or is breathing): Full Support Level Of Support Discussed With: Patient Care Teams Middle School French Teacher Relationship Specialty Start Date End Date Enid Hercules APRN [address] [place] [address] [place] [address] PCP - General Nurse Practitioner 06/05/23
--- OUTSIDE RECORDS SUMMARY | 2024-12-07 19:37 | XMS_ITS | Referral Summary ---
Author Organization [facility] Address [address] [facility] [place] [address] Phone Care Team Providers Care Pole Frame Construction Worker Name Role Phone Eduard Chaidez Primary Care Provider [phone] Allergies No known active allergies Medications levothyroxine [...] Treatment Not on file Insurance Care Teams Pole Frame Construction Worker Relationship Specialty Start Date End Date Eduard Chaidez [address] [place] [address] PCP - General 05/01/22
--- OUTSIDE RECORDS SUMMARY | 2024-12-07 19:37 | XMS_ITS | Clinical Summary ---
Author Organization [facility] Address [address] [place] [address] Care Team Providers Care Billboard Mechanic Name Role Phone Historical, Centricity Primary Care [...] therelease of HIV test results or diagnoses. [id number] Active Problems Problem Noted Date Diagnosed [...] of Treatment Not on file Care Teams Billboard Mechanic Relationship Specialty Start Date End Date Arnold Dupree PCP - General 11/06/05
--- OUTSIDE RECORDS SUMMARY | 2024-12-07 19:37 | XMS_ITS | Clinical Summary ---
Author Organization [facility] Address [address] [place] [address] Phone Care Team Providers Care Attendant [facility] Name Role Phone Susie Chaidez Primary Care Provider [phone] Allergies Active Allergy Reactions Criticality Noted Date [...] on 09/28/2024 meloxicam (MOBIC) 15 mg Oral TabletIndications:A rthritis of carpometacarpal (CMC) joint of right thumb [...] Tablet Take 10 mg by mouth. 08/27/19 Active liothyronine (CYTOMEL) 5 mcg Oral TabletIndications:P rimary hypothyroidism Take 2 Tablets by mouth daily. 180 Tablet 3 09/29/19 25 Active SYNTHROID 125 mcg Oral TabletIndications:P rimary hypothyroidism Take 1 Tablet by mouth daily. Brand-Medically necessary. 90 Tablet 3 09/29/19 25 Active Active Problems Problem Noted Date Diagnosed [...] (12/24/2022): Added automatically from request for surgery [id number] Primary hypothyroidism 05/04/2020 Assessment & Plan (05/04/2020 [...] Description 09/28/2024 11:15 AM EDT Office Visit [place] [address] [address] [facility] [address] [place] [phone] Siva Rey MD Abnormal thyroid blood test (Primary Dx); Primary hypothyroidism; Family history of diabetes mellitus (DM); Weight gain 09/23/2024 8:44 AM EDT - 09/23/2024 11:59 PM EDT Hospital Encounter [facility] [address] [place] [address] Emg, [place] [facility] Superficial peroneal nerve neuropathy, right (Primary Dx); Pain in left foot; Pain in right foot; Paresthesia of skin; Other specific joint derangements of right ankle, not elsewhere classified; Other specific joint derangements of left ankle, not elsewhere classified Discharge Disposition: Home or Self Care 09/21/2024 Results Follow-Up [place] [address] [address] [address] Siva Rey MD T3 FREE, T4, FREE (THYROXINE), THYROID STIMULATING HORMONE, Additional followed-up results: 4 09/18/2024 8:40 AM EDT Clinical Support MAR[facility] [place] [address] [place] [address] Matt Rice MA Primary hypothyroidism; Family history of diabetes mellitus (DM) 09/16/2024 Telephone [facility] [place] [facility] [place] [address] No Pcp, Per Patient Appointment Needed (Lab / Call center not permitted to schedule ) 09/11/2024 Orders Only [facility] [address] [place] [address] Marvin Darling, DPM Pain in left foot (Primary Dx); Pain in right foot; Paresthesia of skin; Other specific joint derangements of right ankle, not elsewhere classified; Other specific joint derangements of left ankle, not elsewhere classified 09/08/2024 4:30 PM EDT Office Visit [facility] [address] [place] [address] Radha Castellanos, PT Bilateral plantar fasciitis (Primary Dx) from Last 3 Months Surgical History Surgery Date Site/Laterality Comments TUBAL LIGATION 05/13/2002 GALLBLADDER SURGERY 05/13/2005 ENDOMETRIAL ABLATION BREAST REDUCTION SURGERY 05/13/2011 DENTAL SURGERY CHOLECYSTECTOMY PELVIC LAPAROSCOPY LAPAROSCOPIC APPENDECTOMY 06/24/2014 N/A DIAGNOSTIC LAPAROSCOPY INCIDENTAL APPENDECTOMY ; Surgeon: Lefty Elliott MD; Location: [facility] MAIN OR; Service: General ABDOMINOPLASTY 06/10/2023 [facility] [place], [place] Medical History Medical History Date Comments [...] Care Team (Late st Contact Info) Description 12/23/2024 1:00 PM EDT Office Visit [facility] [address] [place] [address] Laura Garduno MD [address] [place] [address] 03/31/2025 11:15 AM EST Office Visit [facility] [place] [address] [facility] [address] [place] [address] Siva Rey MD [address] [place] [address] Health Maintenance Due Date Last Done Comments Annual Wellness Exam 1978 Hepatitis B Vaccine (1 of 3 - 19+ 3-dose series) 1992 DTaP/TDaP/Td (1 - Tdap) 10/14/2017 10/13/2017 Cologuard 2018 Colon Cancer Screening 2018 Colonoscopy 2018 FIT 2018 Sigmoidoscopy 2018 Virtual Colonography 2018 Pap Smear 10/12/2023 10/11/2020, 06/2 07/2016, 11/07/2012, Additional history exists Pneumococcal Vaccine 50+ (1 of 1 - PCV) 11/13/2023 Zoster (1 of 2) 11/13/2023 COVID-19 Vaccine (2023- season) 2024 03/29/2021, 07/02/2020, 06/02/2020 Influenza Vaccine (#1) 2025 Cervical Cancer Screening 10/11/2025 HPV/Pap Cotest [...] screening mammogram for malignant neoplasm of breast AUT[employer] COUNTER ASSISTANT CYTOLOGY REQUEST (PAP ONLY) Routine 10/11/2020 11:39 [...] bilateral lower extremities. Sg Dyson M.D. Diplomate, [place] [employer] Narrative SEP OFFICE [...] 233(H) <200 mg/dL 09/18/2024 4:32 PM EDT [facility] [employer] Comment: < 200 Desirable 200 - 239 Borderline High >= 240 High Triglyceride 60 <150 mg/dL 09/18/2024 4:32 PM EDT [employer] Comment: < 150 Normal 150 - 199 Borderline High 200 - 499 High >= 500 Very High HDL 81 >=40 mg/dL 09/18/2024 4:32 PM EDT [employer] Comment: > 60 Optimal 40 - 60 Acceptable < 40 Low LDL Calculated 142(H) <100 mg/dL 09/18/2024 4:32 PM EDT [employer] Comment: < 100 Optimal 100 - 129 Near or above optimal 130 - 159 Borderline High 160 - 189 High >= 190 Very High The National Institutes of Health (NIH) equation is used for all lipid panels that report calculated LDL (LDL-C). Non-HDL-C Calculated 152(H) <=129 mg/dL 09/18/2024 4:32 PM EDT [employer] Comment: <130 Desirable 130-159 Above Desirable 160-189 Borderline High 190-219 High >= 220 Very High Fasting Specimen? Yes None 025 4:32 PM EDT [employer] Blood VENOUS BLOOD / Unknown Venipuncture / Unknown 09/18/2024 8:42 AM EDT 09/18/2024 8:42 AM EDT Siva Rey MD CHEMISTRY ORDERABLES Final Re sult Performing Organization Address [facility] Phone Number [employer] [address] [facility] , [place] [phone] * INSULIN FASTING (09/18/2024 8:42 AM EDT) Pathologist [facility] Insulin Fasting 8.10 2.60 - 24.90 mcIU/mL 09/18/2024 4:29 PM EDT [facility] [employer] Blood VENOUS BLOOD / Unknown Venipuncture / Unknown 09/18/2024 8:42 AM EDT 09/18/2024 8:42 AM EDT Narrative [employer] - 09/18/2024 4:29 PM EDT Ingestion of madelin doses of biotin (>5 mg/day) taken within 8 hours of drawing blood sample can interfere with this immunoassay test. us Siva Rey MD CHEMISTRY ORDERABLES Final Re sult Performing Organization Address [facility] Phone Number [facility] [employer] [address] [facility] , [place] [address] * T3 FREE (09/18/2024 8:42 AM EDT) [facility] T3 Free 2.97 2.00 - 4.40 pg/mL 09/18/2024 4:34 PM EDT [employer] Blood VENOUS BLOOD / Unknown Venipuncture / Unknown 09/18/2024 8:42 AM EDT 09/18/2024 8:42 AM EDT Narrative [employer] - 09/18/2024 4:34 PM EDT Ingestion of madelin doses of biotin (>5 mg/day) taken within 8 hours of drawing blood sample can interfere with this immunoassay test. us Siva Rey MD CHEMISTRY ORDERABLES Final Re sult Performing Organization Address [facility] Co de Phone Number [employer] [address] [facility] , [place] [address] * (ABNORMAL) THYROID STIMULATING HORMONE (09/18/2024 8:42 AM EDT) [facility] TSH 0.050(L) 0.270 - 4.200 mcIU/mL 09/18/2024 4:34 PM EDT [email or web address] Blood VENOUS BLOOD / Unknown Venipuncture / Unknown 09/18/2024 8:42 AM EDT 09/18/2024 8:42 AM EDT Narrative [facility] - 09/18/2024 4:34 PM EDT Ingestion of madelin doses of biotin (>5 mg/day) taken within 8 hours of drawing blood sample can interfere with this immunoassay test. Siva Rey MD CHEMISTRY ORDERABLES Final Re sult Performing Organization Address [facility] Phone Number [address] , [place] [address] * T4, FREE (THYROXINE) (09/18/2024 8:42 AM EDT) [facility] Free T4 1.38 0.80 - 1.80 ng/dL 09/18/2024 4:34 PM EDT [email or web address] Blood VENOUS BLOOD / Unknown Venipuncture / Unknown 09/18/2024 8:42 AM EDT 09/18/2024 8:42 AM EDT Narrative [email or web address] - 09/18/2024 4:34 PM EDT Ingestion of madelin doses of biotin (>5 mg/day) taken within 8 hours of drawing blood sample can interfere with this immunoassay test. Siva Rey MD CHEMISTRY ORDERABLES Final Re sult Performing Organization Address [facility] Phone Number [address] , [place] [address] * HEMOGLOBIN A1C (09/18/2024 8:42 AM EDT) Hgb A1C 5.3 4.2 - 5.6 % 09/18/2024 5:07 PM EDT [facility] Est. Avg Glucose 105 mg/dL 09/18/2024 5:07 PM EDT [facility] Blood VENOUS BLOOD / Unknown Venipuncture / Unknown 09/18/2024 8:42 AM EDT 09/18/2024 8:42 AM EDT Narrative [facility] - 09/18/2024 5:07 PM EDT REFERENCE RANGE: Normal: 4.0-5.6% Pre-diabetes: 5.7-6.4% Provisional diagnosis of diabetes: >6.4% Hgb F>10% and anything which shortens red cell survival, such as hemolytic anemia, or unstable hemoglobin variants such as HbSS, HbSC, or HbCC, will lower the HbA1c value associated with a given level of glycemic control. us Siva Rey MD CHEMISTRY ORDERABLES Final Re sult [facility] [address] [facility] , [place] [address] * (ABNORMAL) COMPREHENSIVE METABOLIC PANEL (09/18/2024 8:42 AM EDT) Sodium 137 136 - 145 mmol/L 09/18/2024 4:32 PM EDT [facility] Potassium 5.3(H) 3.5 - 5.0 mmol/L 09/18/2024 4:32 PM EDT [facility] Chloride 101 98 - 107 mmol/L 09/18/2024 4:32 PM EDT [facility] Total CO2 27 22 - 29 mmol/L 09/18/2024 4:32 PM EDT [facility] Anion Gap 9 7 - 16 mmol/L 09/18/2024 4:32 PM EDT [facility] Calcium 10.1 8.6 - 10.4 mg/dL 09/18/2024 4:32 PM EDT [facility] Glucose Lvl 86 70 - 99 mg/dL 09/18/2024 4:32 PM EDT [facility] BUN 16 6 - 20 mg/dL 09/18/2024 4:32 PM EDT [facility] Creatinine 0.61 0.51 - 1.30 mg/dL 09/18/2024 4:32 PM EDT [facility] Albumin 4.4 3.5 - 5.2 gm/dL 09/18/2024 4:32 PM EDT [facility] Total Protein 7.1 6.4 - 8.3 gm/dL 09/18/2024 4:32 PM EDT [facility] Bili Total 0.4 0.2 - 1.3 mg/dL 09/18/2024 4:32 PM EDT [facility] ALT 16 <=41 U/L 09/18/2024 4:32 PM EDT [facility] AST 22 <=40 U/L 09/18/2024 4:32 PM EDT [facility] Alk Phos 61 36 - 123 U/L 09/18/2024 4:32 PM EDT [facility] eGFR (CKD-EPIcr 2020) 108 >=60 mL/min/1.7 3 m2 09/18/2024 4:32 PM EDT [facility] Comment:Estimated GFR was ca lculated using the CKD-EPIcr (2020) equation refit without race. The equation is recommended by the National Kidney Foundation - [place] [employer] Nephrology Task Force. Blood VENOUS BLOOD / Unknown Venipuncture / Unknown 09/18/2024 8:42 AM EDT 09/18/2024 8:42 AM EDT us Siva Rey MD CHEMISTRY ORDERABLES Final Re sult [facility] [address] [facility] , [place] [address] * MM MAMMO DIGITAL MIGUEL SCREEN BILAT (07/30/2024 10:16 AM EDT) Anatomical Region Laterality Modality Breast Bilateral Mammography 07/30/2024 10:1 6 AM EDT Impressions 07/30/2024 11:25 AM EDT Negative ([id number]) RECOMMENDATION: Routine Screening Mammogram in 1 Year Bilateral . . COMMENTS: DISCLAIMER *The patient was notified by MyChart or mail of the results for this examination. *The patient's information was entered into a reminder system with a target due date for the next breast imaging, in accordance with the [place] [employer] and the Society of [...] for screening mammogram for malignant neoplasm of [id number] COMPARISON STUDIES: Compared with prior studies the most recent being 03/22/2023 MM MAMMO DIGITAL MIGUEL DIAGN BILAT at [facility] 06/29/2022 MM MAMMO DIGITAL MIGUEL SCREEN BILAT at [facility] 07/04/2021 MM MAMMO DIGITAL MIGUEL SCREEN BILAT at [facility] TISSUE DENSITY: The breasts are heterogeneously dense, which may obscure small masses. FINDINGS: No mammographic evidence of malignancy. Procedure Note Cara Tovar MD - 07/30/2024 EXAM: MM MAMMO DIGITAL MIGUEL SCREEN BILAT EXAM DATE: 07/30/2024 10:16 AM INDICATION: Z12.31-Encounter for screening mammogram for malignantneoplasm of [id number]-CM COMPARISON STUDIES: Compared with prior studies the most recent being 03/22/2023 MM MAMMO DIGITAL MIGUEL DIAGN BILAT at [facility] 06/29/2022 MM MAMMO DIGITAL MIGUEL SCREEN BILAT at [facility] 07/04/2021 MM MAMMO DIGITAL MIGUEL SCREEN BILAT at [facility] TISSUE DENSITY: The breasts are heterogeneously dense, which may obscuresmall masses. FINDINGS: No mammographic evidence of malignancy. IMPRESSION: Negative ([id number]) RECOMMENDATION: Routine Screening Mammogram in 1 Year Bilateral . . COMMENTS: DISCLAIMER *The patient was notified by MyChart or mail of the results for this examination. *The patient's information was entered into a reminder system with atarget due date for the next breast imaging, in accordance with the [place] [employer] and the Society of Breast Imaging recommendations. *Breast Imaging has a false negative rate of 15%. *Any patient with a palpable abnormality, unexplained by breast imaging,should be managed on a clinical basis by the attending physician. Enid [facility] [employer] IM MAMMOGRAPHY ORDERABLES Fin al Result * AUTOMOTIVE PARTS COUNTER ASSISTANT CYTOLOGY REQUEST (PAP ONLY) (10/11/2020 11:39 AM EDT) CASE REPORT Gynecologic Cytology Report Case: [id number] Authorizing Provider: Pedro Wood MD Collected: 10/11/2020 1139 Ordering Location: [facility] Received: 10/11/2020 1139 First Screen: Henna Nguyen CT Specimen: LIQUID-BASED PAP - CERVICAL/ENDOCERV ICAL, Cervix, Endocervical 10/13/2020 9:48 AM EDT [facility] PAP FINAL DIAGNOSIS Negative for intraepithelial lesion or malignancy 10/13/2020 9:48 AM EDT [facility] at 0948 EDT MICROSCOPIC DESCRIPTION Microscopic examination is performed and the findings corroborate the diagnosis 10/13/2020 9:48 AM EDT [facility] PAP SMEAR ADEQUACY Satisfactory for evaluation 10/13/2020 9:48 AM EDT [facility] ENDOCERVICAL T-ZONE Transformation zone present 10/13/2020 9:48 AM EDT [facility] [employer] [facility] EMBEDDED IMAGES 9:48 AM EDT [facility] PAP DISCLAIMER The Pap Smear is a screening test that aids in the detection of cervical cancer and cancer precursors. Both false positive and false negative results can occur. The test should be used at regular intervals, and positive results should be confirmed before definitive therapy. Processed using the ThinPrep Jack Tamp Operator Automated cytology screening device (Voxli). 10/13/2020 9:48 AM EDT [facility] [employer] [facility] Thin Prep ENDOCERVICAL STRUCTURE / Unknown 10/11/2020 11:39 AM EDT 10/11/2020 11:39 AM EDT us Pedro Wood MD CYTOLOGY ORDERABLES Final R esult [place] [phone] from Last 3 Months or Most Recently Relevant to Health Maintenance Insurance ANTHEM PPO ANTHEM PPO ANTHEM PPO ANTHEM PPO ANTHJUDY PPO ANTHJUDY PPO Care Teams Attendant [facility] Relationship Specialty Start Date End Date Susie Chaidez [address] [place] [address] PCP - General 03/03/09
--- OUTSIDE RECORDS SUMMARY | 2024-12-07 19:37 | XMS_ITS | Encounter Summary ---
Author [place] [address] Care Team Providers Care Airline Security Representative Name Role Phone Susie Chaidez Primary Care Provider [phone] Reason for Visit * Reason Onset Date Comments Appointment Needed 09/16/2024 Lab / Call ce nter not permitted to schedule Encounter Details Date Type Department Care Team (Late st Contact Info) Description 09/16/2024 Telephone SEP [place] [address] [place] [address] No Pcp, Per Patient Appointment Needed [...] Description 12/23/2024 1:00 PM EDT Office Visit [facility] [address] [place] [address] Laura Garduno MD [address] [place] [address] 03/31/2025 11:15 AM EST Office Visit [facility] [place] [address] [phone] Siva Rey MD [address] [place] [address] documented as of this encounter Goals Goal Patient Goal Type Associated Problems Recent Progress Patient-Stated? Author Maintain a healthy diet, exercise regularly and maintain an ideal body weight General No Radha Acevedo Stay Tobacco Free Lifestyle Radha Glover documented as of this encounter Visit Diagnoses Not on filedocumented in this encounter Care Teams Airline Security Representative Relationship Specialty Start Date End Date Susie Chaidez [address] [place] [facility] [address] [place] [address] PCP - General 03/03/09 documented as of this encounter
--- OUTSIDE RECORDS SUMMARY | 2024-12-07 19:37 | XMS_ITS | Encounter Summary ---
Author Organization [place] [address] Care Team Providers Care Manager Of Security Name Role Phone Susie Chaidez Primary Care Provider [phone] Encounter Details Date Type Department Care Team (Late st Contact Info) Description 09/21/2024 Results Follow-Up [facility] [place] [address] [facility] [address] [place] [address] Siva Rey MD [address] [place] [address] T3 FREE, T4, FREE (THYROXINE), THYROID STIMULATING [...] Visit [facility] [address] [place] [address] Laura Garduno MD [address] [place] [address] 03/31/2025 11:15 AM EST Office Visit [facility] [place] [address] [phone] Siva Rey MD [address] [place], [place] [id number] documented as of this encounter Goals Goal Patient Goal Type Associated Problems Recent Progress Patient-Stated? Author Maintain a healthy diet, exercise regularly and maintain an ideal body weight General No Radha Acevedo Stay Tobacco Free Lifestyle No Radha Acevedo documented as of this encounter Visit Diagnoses Not on filedocumented in this encounter Care Teams Manager Of Security Relationship Specialty Start Date End Date Susie Chaidez [facility] [address] [place] [address] PCP - General 03/03/09 documented as of this encounter
[2024-12-07 22:01] LABS: Folate 19.80 ng/mL
== END 2024-12-07 23:59 | disposition home or self-care (01) ==
LOC: LAB 19:36
PROVIDERS: PCP Obstetrics & Gynecology; Visit Provider Obstetrics & Gynecology
DX: D64.9 Anemia, unspecified (principal)
CPT/HCPCS: 82746

== ENCOUNTER 2025-03-18 07:12 | Day surgery (SDC) | payer BC, SELFPAY ==
--- NOTE | 2025-03-16 07:11 | EXP.HP ---
History of Present Illness *Admission Date: 03/18/25 *History of present illness: Mrs. Bhatt is a 49-year-old female who is here for screening colonoscopy. The patient's recent CBC showed borderline anemia with hemoglobin 11.7 and hematocrit 36.3 with normocytic indices. The patient did have a negative Cologuard test in August 2022. The examination is deemed medically necessary for screening colonoscopy. The patient has been seen, interviewed and examined prior to the procedure by both myself and the anesthesia provider. [facility] Disclaimer: The information contained in this section may have been updated after the patient was seen, as this information can be updated by other users. Medical History Encounter for routine gynecological examination Recurrent herpes labialis Situational anxiety Bilateral plantar fasciitis Negative colorectal cancer screening using DNA-based stool test Breast pain, left History of obesity Vitamin B12 deficiency Vitamin D deficiency Bloating Polyarthralgia Fatigue Acquired hypothyroidism Pharyngitis, acute Surgical History H/O abdominoplasty History of surgery on arm Status post breast reduction Hx of breast reduction, elective History of appendectomy H/O tubal ligation History of cholecystectomy S/P endometrial ablation Family History Other Cancer Coronary artery disease Diabetes FHx: mental illness Heart attack Hyperlipidemia Hypertension Stroke Thyroid disorder Social History Smoking Status: Former smoker alcohol intake: never substance use type: denies use current occupational status: employed Travel in the last 8 weeks?: Inside the [place] household members: family housing: house caffeine: Yes Have you lived/traveled outside US in past 30 days?: No Contact w/someone who lives/traveled outside US past 30 days?: No Exposure to someone with infectious disease in past 14 days?: No Do you have a fever (greater than 100.4 F or 38 C)?: No Have you tested positive for COVID-19?: No Exposed to someone with COVID-19 in past 14 days?: No Do you have a sore throat?: No Do you have a cough?: No Do you have any weakness?: No Are you experiencing any nausea/vomitting?: No Do you have any diarrhea?: No Are you experiencing any unusual bleeding?: No Do you have any muscle aches/pain?: No Do you have any abdominal pain?: No Are you experiencing loss of taste or smell?: No Other Medical History Have you received the Pneumonia Vaccine: No Review of Systems Review of Systems Review of systems (narrative): Negative *Cardiovascular Comments: Negative *Gastrointestinal Comments: Negative *Genitourinary Comments: Negative *Musculoskeletal Comments: Negative *Neurologic Comments: Negative Meds Home Medications and Allergies Home Medications ?Medication ?Instructions ?Recorded ?Confirmed ?Type multivitamin (Multi-Day tablet) 1 ea PO DAILY Supplement 10/13/17 03/18/25 History liothyronine 5 mcg tablet (Cytomel) 10 mcg PO DAILY THYROID 05/02/23 03/18/25 History magnesium 250 mg tablet 500 mg PO DAILY Supplement 05/02/23 03/18/25 History hydroxyzine pamoate 25 mg capsule 25 - 50 mg (1 - 2 x 25 mg) PO Q8H 06/17/24 03/18/25 Rx PRN anxiety #60 caps cyclobenzaprine 10 mg tablet 10 mg PO TID PRN muscle spasm #30 08/26/24 03/18/25 Rx tabs lactobacillus combination no.9 4 4,000 mmu cells PO DAILY 10/27/24 03/18/25 History billion cell capsule (Adult 50 Plus Probiotic) levothyroxine 125 mcg tablet 125 mcg PO DAILY 10/27/24 03/18/25 History (Synthroid) sodium,potassium,mag sulfates 17.5 See Rx Instructions PO .COMPLEX 03/04/25 Rx gram-3.13 gram-1.6 gram oral soln #354 mL (Suprep Bowel Prep Kit) cholecalciferol (vitamin D3) 10 10 mcg PO DAILY 03/16/25 03/18/25 History mcg (400 unit) tablet (Vitamin D3) meloxicam 15 mg tablet See Rx Instructions .Route 03/16/25 03/18/25 History .COMPLEX PRN Pain, Moderate valacyclovir 1 gram tablet 2,000 mg PO Q12H PRN Cold Symptoms 03/16/25 03/18/25 History New Prescriptions to Start Prescriptions: Allergies Allergy/AdvReac Type Severity Reaction Status Date / Time shellfish derived (From Allergy Severe S-SWELLS-OR Verified 03/18/25 07:39 SHELLFISH (FOOD/DRUG)) AL/THROAT Penicillins Allergy Mild I-RASH Verified 03/18/25 07:39 Exam *Routine HEENT Exam Head: Present normocephalic Eye: Present EOMI and PERRL ENT: Present mucous membranes moist *Routine Neck Exam Neck: Present supple *Routine Respiratory Exam Respiratory: Present CTA bilaterally *Routine Cardiovascular Exam Cardiovascular: Present RRR *Routine Abdominal Exam Abdominal: Present soft and normoactive bowel sounds; Absent tenderness *Routine Rectal Exam Rectal:: deferred *Routine Genitalia Exam Genitalia:: deferred *Routine Extremities Exam Extremities: Absent cyanosis, clubbing or edema *Routine Skin Exam Skin: Present warm; Absent rash *Routine Neurological Exam Neurological: Present alert and oriented X3 Assessment and Plan *Assessment and plan (1) Screening for colon cancer: Status: Acute Category: Medical Code(s): Z12.11 - Encounter for screening for malignant neoplasm of colon Plan A/P: 1. Screening for colon cancer is the preprocedural diagnosis. The patient will be anesthetized/sedated using MAC sedation. The patient has been seen and examined. Cardiac and lung assessment prior to the examination is stable. Proceed with planned screening colonoscopy.
[2025-03-16 10:27] VITALS: BMI 22.7
--- NOTE | 2025-03-18 06:40 | P.PCN_ITS ---
[facility] Procedure Note Date: 03/18/25 Time: 09:00 Procedure Note:: Colonoscopy Procedure Report: Colonoscopy with cold snare polypectomy Endoscopist: Jerome Blas II, MD Referring physician: DERIC Pichardo Date of Procedure: March 18, 2025 Equipment: [employer] [id number] adult colonoscope Sedation: MAC sedation Indication: Mrs. Bhatt is a 49-year-old female who is here for initial screening colonoscopy. The patient reports no abdominal pain, weight loss, change in her bowel habits or rectal bleeding. She reports no family history of colon cancer. She does have a tendency towards constipation. The patient's recent CBC showed borderline anemia with hemoglobin 11.7 and hematocrit 36.3 with normocytic indices. The patient did have a negative Cologuard test in August 2022. The examination is deemed medically necessary for screening colonoscopy. Procedure: Prior to the procedure, a history and physical exam was performed, and patient's medications and allergies were reviewed. The risks, benefits and alternatives of the sedation and procedure were discussed with the patient. All questions were answered and informed consent was obtained. The patient was brought to the procedure room. Patient identification and proposed procedure were verified by the physician and the nurse. The patient was placed in a left lateral decubitus position and the scope was passed under direct vision. Throughout the procedure, the patient's blood pressure, pulse, and oxygen saturations were monitored continuously. The colonoscopy was accomplished without difficulty. The patient tolerated the procedure well. Findings: On digital rectal examination there was normal rectal tone. There were no external hemorrhoids. The colonoscope was introduced through the anal canal to the rectum and advanced to the cecum. The ileocecal valve and appendiceal orifice were identified. The scope was advanced a short distance into the ileum which appeared grossly normal. The scope was then withdrawn into the colon. There was a single 4 mm cecal polyp that was removed via cold snare polypectomy. The remaining cecum, ascending, transverse, descending, sigmoid and rectum were grossly normal. There were no mucosal abnormalities identified. Upon retroflexion within the rectum there were grade 1 internal hemorrhoids. The preparation was excellent throughout with [place] Preparation Score of 9. The cecal time was 12 minutes. Impression: 1. Cecal polyp (4 mm) Plan: I will follow-up the polyp histology and recommend repeat screening/surveillance colonoscopy again in 7 years.
[2025-03-18 07:42] VITALS: BP 100/65; PULSE 67; RESP 18; TEMP 36.4; O2SAT 100
[2025-03-18 07:46] LABS: Urine Pregnancy, HCG Qual. Negative (Negative)
[2025-03-18] MEDS: LACTATED RINGERS 1000ML 1,000 ML 50 ML IV (07:53)
--- NOTE | 2025-03-18 08:25 | P.PNANES_ITS ---
[facility] Disclaimer: The information contained in this section may have been updated after the patient was seen, as this information can be updated by other users. Medical History Encounter for routine gynecological examination Recurrent herpes labialis Situational anxiety Bilateral plantar fasciitis Negative colorectal cancer screening using DNA-based stool test Breast pain, left History of obesity Vitamin B12 deficiency Vitamin D deficiency Bloating Polyarthralgia Fatigue Acquired hypothyroidism Pharyngitis, acute Surgical History H/O abdominoplasty History of surgery on arm Status post breast reduction Hx of breast reduction, elective History of appendectomy H/O tubal ligation History of cholecystectomy S/P endometrial ablation Family History Other Cancer Coronary artery disease Diabetes FHx: mental illness Heart attack Hyperlipidemia Hypertension Stroke Thyroid disorder Social History Smoking Status: Former smoker alcohol intake: never substance use type: denies use current occupational status: employed Travel in the last 8 weeks?: Inside the [place] household members: family housing: house caffeine: Yes Have you lived/traveled outside US in past 30 days?: No Contact w/someone who lives/traveled outside US past 30 days?: No Exposure to someone with infectious disease in past 14 days?: No Do you have a fever (greater than 100.4 F or 38 C)?: No Have you tested positive for COVID-19?: No Exposed to someone with COVID-19 in past 14 days?: No Do you have a sore throat?: No Do you have a cough?: No Do you have any weakness?: No Are you experiencing any nausea/vomitting?: No Do you have any diarrhea?: No Are you experiencing any unusual bleeding?: No Do you have any muscle aches/pain?: No Do you have any abdominal pain?: No Are you experiencing loss of taste or smell?: No [facility] Anesthesia Checklist Patient Identification Patient Identification: Arm Band and Verbal (Name & ) Structural Data Admitted From: Home Planned Operative Procedure/s: colonscopy Consent for Planned Operative Procedure(s) Verified: Yes Verified Documents: Surgical Consent and History and Physical NPO Status Verified Time NPO: 00:00 Additional verifications Anesthesia Reactions: No Airway Assessment Mallampati Score:: Class II Dentition: Good Dentition Neurological Assessment Level of Consciousness: Awake, Alert and Appropriate Hx Seizures: No Numbness or tingling in extremities: No Anesthesia Plan Anesthesia Risk discussed: Yes Anesthesia Plan: Verified ASA Class: II Anesthesia Type: MAC
[2025-03-18 09:00] VITALS: BP 86/49; PULSE 71; RESP 18; TEMP 36.2; O2SAT 100
[2025-03-18 09:10] VITALS: BP 100/57; PULSE 69; RESP 18; O2SAT 98
[2025-03-18 09:20] VITALS: BP 129/72; PULSE 68; RESP 18; O2SAT 99
[2025-03-18 09:30] VITALS: BP 122/76; PULSE 67; RESP 18; O2SAT 99
[2025-03-18 09:48] LABS: Iron 110 ug/dL (37-170)
[2025-03-18 09:58] LABS: Total Iron Binding Capacity 164 ug/dL (265-497)
[2025-03-18 10:26] LABS: Ferritin 46.6 ng/ml (11.1-264)
== END 2025-03-18 09:38 | disposition home or self-care (01) ==
PROVIDERS: PCP Nurse Practitioner; Visit Provider Internal Medicine Gastroenterology
PROC: 0DJD8ZZ Inspection of Lower Intestinal Tract, Via Natural or Artificial Opening Endoscopic (ICD-10-PCS; CPT 45378; principal; 2025-03-18 08:30)
DX: Z12.11 Encounter for screening for malignant neoplasm of colon (principal); D12.0 Benign neoplasm of cecum; K64.0 First degree hemorrhoids; E03.9 Hypothyroidism, unspecified; Z88.0 Allergy status to penicillin
CPT/HCPCS: 45385; 36415; 81025; 82728; 83540; 83550; J2003; J2704; J7120

== ENCOUNTER 2025-04-27 10:33 | Outpatient (CLI) | payer BC, SELFPAY ==
--- OUTSIDE RECORDS SUMMARY | 2025-03-03 06:30 | XMS_ITS | Encounter Summary ---
Author Organization [place] [address] Care Team Providers Care Structural Biologist Name Role Phone Susie Chaidez Primary Care Provider [phone] Reason for Visit * Physical Therapy (Routine) - Authorized Specialty Diagnoses / Procedures Referred By Contac t Referred To Contact Physical Therapist / Physical Therapy Diagnoses FOTO/PT TO BRING IN REFERRAL. Procedures PT EVAL 60 Britton Velarde MD [address] [place] [address] Phone: tel: Godwin Gao PT Referral ID Status Reason Start Date Expiration Date V isits Requested Visits Authorized [id number] Authorized 02/17/2025 02/17/2026 99 99 Encounter Details Date Type Department Care Team (Latest Contact Info) Description 03/03/2025 7:30 AM EDT - 03/03/2025 11:59 PM EDT Hospital Encounter [facility] Physical Therapy [place] [address] [place], [place] [id number] Godwin Goa PT Impingement of right shoulder (Primary Dx) Discharge Disposition: Home or Self Care Social [...] Tablet Take 500 mcg by mouth daily. lactobacillus rhamnosus, GG, (CULTURELLE) 10 billion cell Oral Capsule Take 1 Capsule by mouth daily. liothyronine (CYTOMEL) 5 mcg Oral TabletIndications:Pr imary hypothyroidism Take 2 Tablets by mouth daily. 180 Tablet 3 09/28/2024 MAGNESIUM ORAL Take by mouth. meloxicam (MOBIC) 15 mg Oral TabletIndications:Ar thritis of carpometacarpal (CMC) joint of right thumb Take 1 Tablet by mouth daily. 30 Tablet 2 11/07/2022 multivit-min/folic ac/collagen (WOMEN'S MULTIVITAMIN COLLAGEN ORAL) Take 200 mg by mouth daily. SYNTHROID 125 mcg Oral TabletIndications:Pr imary hypothyroidism Take 1 Tablet by mouth daily. Brand-Medicall y necessary. 90 Tablet 3 09/28/2024 cyclobenzaprine (FLEXERIL) 10 mg Oral Tablet Take 10 mg by mouth. 08/26/2024 5 estradioL (CLIMARA) 0.05 mg/[address] 1 Patch onto the skin once a week. 5 fish oil OTC (OMEGA-3 DHA-EPA 300 MG) 300-1,000 mg Oral Capsule, Delayed Release(E.C.) Take 2 g by mouth daily. 5 microfibrillar collagen Top Powder Apply topically as needed. 5 mirabegron (MYRBETRIQ) 25 mg Oral Tablet Sustained Release 24 hr Take 1 Tablet by mouth daily. 30 Tablet 1 12/28/2021 5 multivitamin capsule Take 1 Capsule by mouth daily. 5 TURMERIC ORAL Take by mouth. 02 5 zinc gluconate 50 mg Oral Tablet Take 50 mg by mouth daily. 5 documented as of this encounter Discharge Disposition Disposition Code Departure Means Destination Home or Self Care documented in this encounter Progress Notes * Provider, Unknown - 03/03/2025 8:13 AM EDT * Jeanmarie Rosas - 03/03/2025 8:10 AM EDT Program_ID:[id number] Access Code: [email or web address] URL: [email or web address] Date: 03-03-2025 Prepared By: Godwin Gao Program Notes Exercises - Single Arm Shoulder Extension with Anchored Resistance - 1 x daily - 7 x weekly - 1 sets - 10-30 reps - Standing Single Arm Shoulder Flexion with Posterior Anchored Resistance - 1 x daily - 7 x weekly - 1 sets - 10-30 reps - Shoulder Internal Rotation with Resistance - 1 x daily - 7 x weekly - 1 sets - 10-30 reps - Shoulder External Rotation with Anchored Resistance with Towel Under Elbow - 1 x daily - 7 x weekly - 1 sets - 10-30 reps - Standing Bilateral Low Shoulder Row with Anchored Resistance - 1 x daily - 7 x weekly - 1 sets - 10-30 reps * Godwin Gao, PT - 03/03/2025 7:30 AM EDT Images from the original note were not included. Physical Therapy Evaluation Patient Name: Stephanie Bhatt : 1975 Visit #: 1 Onset Date: 12/20/24 Diagnosis: Restrictions/Precautions: [place] Physician: Syd RUIZ Follow Up: prn Evaluation Date: 03/03/2025 Reassessment Due: 04/03/25 Primary Insurance: ANTHEM/ANTHEM PPO Secondary Insurance: N/A Insurance Authorization: Physical Therapist Authorized (02/17/2025-02/17/2026) Visits Requested Visits Authorized Visits Completed Visits Scheduled 99 99 1 -- Details Referral ID: [id number] Authorization Status Reason: Received Carrier Authorization Authorization Comments: -- Referred To: Godwin Gao PT at [facility], [facility] Referred By: Britton Velarde MD Creation Date: 02/05/2025 Referral Reasons: -- Referral Order: -- Time In/Out: 7:40/8:30 Timed Treatment Minutes: Therapeutic Exercise 15 minutes Total Timed Code Treatment Minutes: 15 Untimed Treatment Minutes: Hot/cold packs, PT Eval, and Vaso Total Treatment Minutes: 50 This evaluation to serve as D/C summary if the patient doesn't return for further treatment. Subjective: Stephanie Bhatt is a 49 y.o. female referred by Britton Velarde MD to outpatient Physical Therapy with a primary diagnosis of: History of Injury/Mechanism of Inury: insidious I fell asleep with my arm over my head and woke up and my arm was numb and the shoulder was painful. Functional Deficits Since Injury: right UE adls Pain: Current Pain Level: 5 Location: right shoulder Description: Pain is described as aching, dull, variable intensity, and with paresthesia Increases Pain: adls, overhead adls Decreases Pain: ice, rest, and change of position Sensation/Neurovascular Numbness and Tingling Diagnostic Tests: X-rays Past Medical History[1] Surgical History[2] Current Medications[3] Allergies: Penicillins and Shellfish containing products Have you received any Speech or Physical therapy this year? [x] Yes [] No Are you currently receiving any Home Health services? [] Yes [x] No Any problems with speech, communication, memory? [] Yes [x] No Barriers to learning? [] Yes [x] No Recent falls? [] Yes [x] No How would you rate your overall health? 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 (0-10) Cleaning my house 3 Exercise 3 Sleep 3 Treatment Evaluation. AROM: WNLs PROM: WNLs MMT: 3+/5 right 4/5 left T-band green: flex, ext, er, ir, rows x 15 reps each VASO and ICE x 20 minutes to right shoulder HEP Response to HEP instruction/patient education: Instruction/patient education, Verbalized understanding, Returned demonstration Response to treatment: Decreased pain Assessment Stephanie Bhatt presents with signs and symptoms consistent with right shoulder impingement. Functional impairments and activity limitations include: right UE adls. Pt would benefit from skilled physical therapy services in order to address Pain and Strength. Rehab Potential: [x] Good [] Fair [] Poor Goals Short Term Goals: (set for 2 weeks) Update/Status Patient will be independent with HEP in order to promote long-term health and reduce risk for injury. [x] Unmet [] Progressing [] Met Skilled Nursing Goals: (set for 8 weeks) Update/Status Patient's FOTO score will increase to 75 noting an increase in overall function. [x] Unmet [] Progressing [] Met Patient's PSFS score on functional adls will improve from 3/10 to 8-10/10, noting an improvement infunction that is important to patient's quality of life. [x] Unmet [] Progressing [] Met Patient's right shoulder strength will increase to 4/5 in order to perform functional adls without issue. [x] Unmet [] Progressing [] Met Pt will report no higher than 2/10 pain with functional activities for the duration of 1 week in order to perform functional adls. [x] Unmet [] Progressing [] Met DASH will improve from 18.3 [x] Unmet [] Progressing [] Met Plan [x] Continue per plan of care [] Alter current plan (see comments) [x] Plan of care initiated [] Hold pending MD visit [] Discharge Comments: This note to serve as a discharge if the patient does not return. Patient will be seen 2 times per week for 8 weeks. Treatments to consist of Therapeutic exercise 43306, Patient education, Electrical stimulation (unattended) 92028, Cryotherapy 32806, and Moist [id number]. Patient present with co-morbidities of chronic pain, musculoskeletal conditions, and endocrine disorder and personal factors of N/A that may impact patient/family's ability to Play sports, Attend social activities, Perform ADLs, and Engage in community. During today's evaluation, he/she presented with problem areas in musculoskeletal system, activity limitations, and participation restriction that are impacting functional activities and participation (see objective measures for further detail).Due to indicated course of physical therapy, the patient's presentation is evolving at this time. This patient presented today with moderate complexity. Reference Chart: Co-morbidities & Personal Factors Body system elements Presentation Clinical Decision Making Low Evaluation 0 1-2 Stable / Predictable Low Moderate Evaluation 1-2 3 or more Evolving/ Changing Moderate High Evaluation 3 or more 4 or more Unstable/ Unpredictable High Signature: Godwin Gao, PT Date: 03/03/2025 [1] Past Medical History: Diagnosis Date Headache(784.0) Hypothyroidism Urinary tract infection [2] Past Surgical History: Procedure Laterality Date ABDOMINOPLASTY 06/10/2023 [facility] in [place], [place] BREAST REDUCTION SURGERY 05/13/2011 CHOLECYSTECTOMY DENTAL SURGERY ENDOMETRIAL ABLATION GALLBLADDER SURGERY 05/13/2005 LAPAROSCOPIC APPENDECTOMY N/A 06/24/2014 DIAGNOSTIC LAPAROSCOPY INCIDENTAL APPENDECTOMY ; Surgeon: Lefty Elliott MD; Location: [facility]; Service: General PELVIC LAPAROSCOPY TUBAL LIGATION 05/13/2002 [3] Current Outpatient Medications Medication Sig Dispense Refill B Complex-Minerals Oral Tablet Take by mouth daily. Cholecalciferol, Vitamin D3, 50 mcg (2,000 unit) Oral Capsule Take 4,000 Units by mouth daily. cyanocobalamin 500 mcg Oral Tablet Take 500 mcg by mouth daily. (Patient not taking: Reported on 09/28/2024) cyclobenzaprine (FLEXERIL) 10 mg Oral Tablet Take 10 mg by mouth. estradioL (CLIMARA) 0.05 mg/[address] 1 Patch onto the skin once a week. (Patientnot taking: Reported on 09/28/2024) fish oil OTC (OMEGA-3 DHA-EPA 300 MG) 300-1,000 mg Oral Capsule, Delayed Release(E.C.) Take 2 g by mouth daily. (Patient not taking: Reported on 09/28/2024) lactobacillus rhamnosus, GG, (CULTURELLE) 10 billion cell [...] taking: Reported on 09/28/2024) 30 Tablet 1 multivit-min/folic ac/collagen (WOMEN'S MULTIVITAMIN COLLAGEN ORAL) Take 200 mg by mouth daily. multivitamin capsule Take 1 Capsule by mouth daily. (Patient not taking: Reported on 09/28/2024) SYNTHROID 125 mcg Oral Tablet Take 1 Tablet by mouth daily. Brand-Medically necessary. 90 Tablet 3 TURMERIC ORAL Take by mouth. zinc gluconate 50 mg Oral Tablet Take 50 mg by mouth daily. No current facility-administered medications for this encounter. documented in this encounter Consult Notes * Godwin Gao, PT - 03/03/2025 7:30 AM EDT Auto-generated from [employer] Functional Status MeasuresIntake ScoreInterpretation of FS Scores/Stages Value Patient's Physical FS Primary [id number]'s intake functional measure is 63. This FS measure places the patient in Stage 4 and means the patient good shoulder Risk Adjusted Statistical [id number] the patient's risk-adjustment variables, like-patients nationally had a FS score of 61 , Stage 4, at intake. Risk-Adjustment Criteria Care Type: OrthopedicCondition: ShoulderSeverity: Slight (Intake FS: 63)Gender: Other/Unavailable Age: 49Acuity: 22 - 90 daysSurgicalCode: Not ApplicableSurgeries: None Medication: NoPrev Treatment: YesSpecific Comorbidities: 18 Rehabilitation Resource PredictorPredicted Value Points of Physical FS [id number] Discharge FS Score75 Visits per [id number] Duration in Days47 Average Satisfaction Score97.4% Interpretation of Predicted Value Given this patient???s risk-adjustment variables, and the actual Intake FS score, FOTO predicts this patient will experience at least an increase in function of 12 points (to 75 or higher), putting them in the Stage 4 level or higher at discharge. Patient Scores [id number] Patient responses to FOTO Shoulder (Primary) were as follows Activity (Question) Response at Intake Status Predicted Place a gallon of milk (8-10 lbs) on a shelf overheadSome difficulty--No difficulty Heavy supervisor frame assembly (e.g., washing hines, washing floors)Much difficulty--No difficulty Reach an overhead shelfLittle difficulty--No difficulty Reach and pull the string that controls a light or fanNo difficulty--No difficulty Reach a shelf that is at shoulder heightLittle difficulty--No difficulty Patient responses to Demographics were as follows AttributeAnswerPatient reports other health conditions [id number] (Height: 67 inches, Weight: 145 lbs)Exercise prior to onsetPatient completed 20 minutes of exercise at least three (3) times a weekPrescription medicinePatient is not taking prescription medicine for this conditionSurgeryPatient reports no surgeries for this primary condition Patient responses to PSFS were as follows AttributeAnswerActivity 1: Cleaning my [id number] 2: Yfpxxqjj2Nziveoed 3: Sleep3 documented in this encounter Plan of Treatment Upcoming Encounters Date Type Department Care Team (Late st Contact Info) Description 05/11/2025 4:00 PM EST Office Visit [facility] Physical Therapy [address] [place] [address] Radha Castellanos, PT [address] [place] [address] 08/24/2025 2:30 PM EDT Office Visit [facility] [address] [place] [address] Laura Garduno MD [address] [place] [address] 09/29/2025 11:00 AM EDT Office Visit [facility] [address] [phone] Siva Rey MD [address] [place] [address] documented as of this encounter Goals Goal Patient Goal Type Associated Problems Recent Progress Patient-Stated? Author Maintain a healthy diet, exercise regularly and maintain an ideal body weight General No Radha Acevedo Stay Tobacco Free Lifestyle Radha Glover documented as of this encounter Visit Diagnoses Diagnosis Impingement of right shoulder- Primary documented in this encounter Care Teams Structural Biologist Relationship Specialty Start Date End Date Susie Chaidez [address] [place] [address] [address] [facility] [address] PCP - General 03/03/09 documented as of this encounter
--- OUTSIDE RECORDS SUMMARY | 2025-03-17 07:30 | XMS_ITS | Encounter Summary ---
Author Organization [place] [address] Care Team Providers Care Internal Audit Manager Name Role Phone Susie Chaidez Primary Care Provider [phone] Reason for Visit * Physical Therapy (Routine) - Authorized Specialty Diagnoses / Procedures Referred By Contac t Referred To Contact Physical Therapist / Physical Therapy Diagnoses FOTO/PT TO BRING IN REFERRAL. Procedures PT EVAL 60 Britton Velarde MD [address] [place] [address] Phone: tel: Godwin Gao PT Referral ID Status Reason Start Date Expiration Date V isits Requested Visits Authorized [id number] Authorized 02/17/2025 02/17/2026 99 99 Encounter Details Date Type Department Care Team (Latest Contact Info) Description 03/17/2025 7:30 AM EST - 03/17/2025 8:33 AM [facility] Hospital Encounter [facility] Physical Therapy [place] [address] [place], [place] [address] [place], [place] [id number] Godwin Gao PT Impingement of right shoulder (Primary Dx) [...] documented in this encounter Progress Notes * Godwin Gao, PT - 03/17/2025 7:30 AM EST Images from the original note were not included. Physical Therapy Treatment Note Patient Name: Stephanie Bhatt : 1975 Visit #: 2 Onset Date: 12/20/24 Diagnosis: Restrictions/Precautions: [place] Physician: Syd RUIZ Follow Up: prn Evaluation Date: 03/03/2025 Reassessment Due: 04/03/25 Primary Insurance: ANTHEM/ANTHEM PPO Secondary Insurance: N/A Insurance Authorization: Physical Therapist Authorized (02/17/2025-02/17/2026) Visits Requested Visits Authorized Visits Completed Visits Scheduled 99 99 2 2 Details Referral ID: [id number] Authorization Status Reason: Received Carrier Authorization Authorization Comments: -- Referred To: Godwin Gao PT at [facility], [facility] Referred By: Britton Velarde MD Creation Date: 02/05/2025 Referral Reasons: -- Referral Order: -- Time In/Out: 7:44/8:24 Timed Treatment Minutes: Therapeutic Exercise 20 minutes Total Timed Code Treatment Minutes: 20 Untimed Treatment Minutes: Hot/cold packs and Vaso Total Treatment Minutes: 40 Medication Changes: Pain: 3 Location: right shoulder Description: Pain is described as aching, dull, variable intensity, and with paresthesia Subjective The patient reports the pain is about a 3/10, less pain with activity. Objective: Treatment Evaluation. AROM: WNLs PROM: WNLs MMT: 3+/5 right 4/5 left T-band blue: flex, ext, er, ir, rows x 20 reps each (B) UBE x 6 minutes 3' fwd / 3' bkwd VASO and ICE x 20 minutes to right shoulder HEP Assessment The patient tolerated increased RX well today. Goals Short Term Goals: (set for 2 weeks) Update/Status Patient will be independent with HEP in order to promote long-term health and reduce risk for injury. [x] Unmet [] Progressing [] Met Long-Term Goals: (set for 8 weeks) Update/Status Patient's [...] discharge if the patient does not return. Electronically signed by: Signed: Godwin Gao, PT Date: 03/17/2025 documented in this encounter Plan of Treatment Upcoming Encounters Date Type Department Care Team (Late st Contact Info) Description 05/11/2025 4:00 PM EST Office Visit [facility] Physical Therapy [address] [place] [address] Radha Castellanos, PT [address] [facility] [place] [address] 08/24/2025 2:30 PM EDT Office Visit [facility] [address] [place] [address] Laura Garduno MD [address] [place] [phone] 09/29/2025 11:00 AM EDT Office Visit [facility] [address] [facility] [address] [place] [address] Siva Rey MD [address] [place] [address] documented as of this encounter Goals Goal Patient Goal Type Associated Problems Recent Progress Patient-Stated? Author Maintain a healthy diet, exercise regularly and maintain an ideal body weight General No Radha Acevedo Stay Tobacco Free Lifestyle Radha Glover documented as of this encounter Visit Diagnoses Diagnosis Impingement of right shoulder- Primary documented in this encounter Care Teams Internal Audit Manager Relationship Specialty Start Date End Date Susie Chaidez [facility] [id number] [address] [place] [address] PCP - General 03/03/09 documented as of this encounter
--- OUTSIDE RECORDS SUMMARY | 2025-03-17 08:34 | XMS_ITS | Encounter Summary ---
Author Organization [place] [address] Care Team Providers Care Gamewell Operator Name Role Phone Susie Chaidez Primary Care Provider [phone] Encounter Details Date Type Department Care Team (Latest Contact Info) Description 03/17/2025 8:34 AM EST - 03/17/2025 11:59 PM [facility] Hospital Encounter [facility] [address] [place] [address] Family history of diabetes mellitus (DM); Primary hypothyroidism Discharge Disposition: Home or Self Care Social [...] [facility] [address] [place] [address] Radha Castellanos, PT [address] [place] [address] 08/24/2025 2:30 PM EDT Office Visit [facility] [address] [place] [address] Laura Garduno MD [address] [place] [address] 09/29/2025 11:00 AM EDT Office Visit [facility] [place] [address] [facility] [address] [place] [phone] Siva Rey MD [address] [place] [address] documented as of this encounter Goals Goal Patient Goal Type Associated Problems Recent Progress Patient-Stated? Author Maintain a healthy diet, exercise regularly and maintain an ideal body weight General No Radha Acevedo Stay Tobacco Free Lifestyle No Radha Acevedo documented as of this encounter Procedures Procedure Name Priority Date/Time Associated Diagnosis Comments LIPID PANEL REFLEX Routine 03/17/2025 8: 39 AM EST Family history of diabetes mellitus (DM) INSULIN FASTING Routine 03/17/2025 8:39 AM EST Family history of diabetes mellitus (DM) T3 FREE Routine 03/17/2025 8:39 AM EST Primary hypothyroidism THYROID STIMULATING HORMONE Routine 03/17/2025 8:39 AM EST Primary hypothyroidism T4, FREE (THYROXINE) Routine 03/17/2025 8:39 AM EST Primary hypothyroidism HEMOGLOBIN A1C Routine 03/17/2025 8:39 AM EST Family history of diabetes mellitus (DM) COMPREHENSIVE METABOLIC PANEL Routine 03/17/2025 8:39 AM EST Family history of diabetes mellitus (DM) documented in this encounter Results * T3 FREE (03/17/2025 8:39 AM EST) T3 Free 3.06 2.00 - 4.40 pg/mL 03/17/2025 4:26 PM EST [facility] [employer] Blood VENOUS BLOOD / Unknown Venipuncture / Unknown 03/17/2025 8:39 AM EST 03/17/2025 8:39 AM EST Narrative [facility] [facility] - 03/17/2025 4:26 PM EST Ingestion of madelin doses of biotin (>5 mg/day) taken within 8 hours of drawing blood sample can interfere with this immunoassay test. Siva Rey MD CHEMISTRY ORDERABLES Final Re sult Performing Organization Address [facility] Co de Phone Number [facility] [employer] , [address] [place] [id number] * T4, FREE (THYROXINE) (03/17/2025 8:39 AM EST) Free T4 1.44 0.80 - 1.80 ng/dL 03/17/2025 4:26 PM EST [facility] [employer] Blood VENOUS BLOOD / Unknown Venipuncture / Unknown 03/17/2025 8:39 AM EST 03/17/2025 8:39 AM EST Narrative [facility] [employer] [facility] - 03/17/2025 4:26 PM EST Ingestion of madelin doses of biotin (>5 mg/day) taken within 8 hours of drawing blood sample can interfere with this immunoassay test. Siva Rey MD CHEMISTRY ORDERABLES Final Re sult Performing Organization Address [facility] Co de Phone Number [facility] [employer] , [place] [address] * (ABNORMAL) THYROID STIMULATING HORMONE (03/17/2025 8:39 AM EST) TSH 0.047(L) 0.270 - 4.200 mcIU/mL 03/17/2025 4:26 PM EST [facility] [employer] [facility] Blood VENOUS BLOOD / Unknown Venipuncture / Unknown 03/17/2025 8:39 AM EST 03/17/2025 8:39 AM EST Narrative [facility] [employer] [facility] - 03/17/2025 4:26 PM EST Ingestion of madelin doses of biotin (>5 mg/day) taken within 8 hours of drawing blood sample can interfere with this immunoassay test. Siva Rey MD CHEMISTRY ORDERABLES Final Re sult Performing Organization Address [facility] Co de Phone Number [facility] [employer] [address] , [place] [address] * HEMOGLOBIN A1C (03/17/2025 8:39 AM EST) Pathologist [facility] Hgb A1C 5.2 4.2 - 5.6 % 03/17/2025 3:30 PM EST [facility] [employer] [facility] Est. Avg Glucose 103 mg/dL 03/17/2025 3:30 PM EST [facility] [employer] [facility] Blood VENOUS BLOOD / Unknown Venipuncture / Unknown 03/17/2025 8:39 AM EST 03/17/2025 8:39 AM EST Narrative [facility] [employer] [facility] - 03/17/2025 3:30 PM EST REFERENCE RANGE: Normal: 4.0-5.6% Pre-diabetes: 5.7-6.4% Provisional diagnosis of diabetes: >6.4% Hgb F>10% and anything which shortens red cell survival, such as hemolytic anemia, or unstable hemoglobin variants such as HbSS, HbSC, or HbCC, will lower the HbA1c value associated with a given level of glycemic control. us Siva Rey MD CHEMISTRY ORDERABLES Final Re sult Performing Organization Address [facility] Co de Phone Number [facility] [employer] [address] , [place] [address] * (ABNORMAL) COMPREHENSIVE METABOLIC PANEL (03/17/2025 8:39 AM EST) Pathologist [facility] Sodium 135(L) 136 - 145 mmol/L 03/17/2025 4:26 PM EST [facility] Potassium 4.8 3.5 - 5.0 mmol/L 03/17/2025 4:26 PM EST [facility] Chloride 101 98 - 107 mmol/L 03/17/2025 4:26 PM EST [facility] Total CO2 28 22 - 29 mmol/L 03/17/2025 4:26 PM EST [facility] Anion Gap 6(L) 7 - 16 mmol/L 03/17/2025 4:26 PM EST [facility] Calcium 10.0 8.6 - 10.4 mg/dL 03/17/2025 4:26 PM EST [facility] Glucose Lvl 81 70 - 99 mg/dL 03/17/2025 4:26 PM EST [facility] BUN 19 6 - 20 mg/dL 03/17/2025 4:26 PM EST [facility] Creatinine 0.68 0.51 - 1.30 mg/dL 03/17/2025 4:26 PM EST [facility] Albumin 4.2 3.5 - 5.2 gm/dL 03/17/2025 4:26 PM EST [facility] Total Protein 6.9 6.4 - 8.3 gm/dL 03/17/2025 4:26 PM EST [facility] Bili Total 0.3 0.2 - 1.3 mg/dL 03/17/2025 4:26 PM EST [facility] ALT 19 <=41 U/L 03/17/2025 4:26 PM EST [facility] AST 17 <=40 U/L 03/17/2025 4:26 PM EST [facility] Alk Phos 55 36 - 123 U/L 03/17/2025 4:26 PM EST [facility] eGFR (CKD-EPIcr 2020) 104 >=60 mL/min/1.7 3 m2 03/17/2025 4:26 PM EST [facility] Comment:Estimated GFR was ca lculated using the CKD-EPIcr (2020) equation refit without race. The equation is recommended by the National Kidney Foundation - [place] [employer]ph[employer] Task Force. Blood VENOUS BLOOD / Unknown Venipuncture / Unknown 03/17/2025 8:39 AM EST 03/17/2025 8:39 AM EST Siva Rey MD CHEMISTRY ORDERABLES Final Re sult Performing Organization Address City/[facility]/ZIP Co de Phone Number [facility] [address] [facility] , [place] [address] * (ABNORMAL) LIPID PANEL REFLEX (03/17/2025 8:39 AM EST) Cholesterol 232(H) <200 mg/dL 03/17/2025 4:26 PM EST [employer] Comment: < 200 Desirable 200 - 239 Borderline High >= 240 High Triglyceride 32 <150 mg/dL 03/17/2025 4:26 PM EST [employer] Comment: < 150 Normal 150 - 199 Borderline High 200 - 499 High >= 500 Very High HDL 81 >=40 mg/dL 03/17/2025 4:26 PM EST [employer] Comment: > 60 Optimal 40 - 60 Acceptable < 40 Low LDL Calculated 146(H) <100 mg/dL 03/17/2025 4:26 PM EST [employer] Comment: < 100 Optimal 100 - 129 Near or above optimal 130 - 159 Borderline High 160 - 189 High >= 190 Very High The National Institutes of Health (NIH) equation is used for all lipid panels that report calculated LDL (LDL-C). Non-HDL-C Calculated 151(H) <=129 mg/dL 03/17/2025 4:26 PM EST [facility] Comment: <130 Desirable 130-159 Above Desirable 160-189 Borderline High 190-219 High >= 220 Very High Fasting Specimen? Yes None 025 4:26 PM EST [employer] Blood VENOUS BLOOD / Unknown Venipuncture / Unknown 03/17/2025 8:39 AM EST 03/17/2025 8:39 AM EST Siva Rey MD CHEMISTRY ORDERABLES Final Re sult Performing Organization Address City/[facility]/ZIP Co de Phone Number [facility] [facility] [address] [facility] , [place] [address] * INSULIN FASTING (03/17/2025 8:39 AM EST) Insulin Fasting 3.91 2.60 - 24.90 mcIU/mL 03/17/2025 4:24 PM EST [facility] [employer] Blood VENOUS BLOOD / Unknown Venipuncture / Unknown 03/17/2025 8:39 AM EST 03/17/2025 8:39 AM EST Narrative [facility] [employer] - 03/17/2025 4:24 PM EST Ingestion of madelin doses of biotin (>5 mg/day) taken within 8 hours of drawing blood sample can interfere with this immunoassay test. us Siva Rey MD CHEMISTRY ORDERABLES Final Re sult [employer] [address] [facility] , [place] [address] documented in this encounter Visit Diagnoses Diagnosis Family history of diabetes mellitus (DM) Family history of diabetes mellitus Primary hypothyroidism Unspecified hypothyroidism documented in this encounter Care Teams Gamewell Operator Relationship Specialty Start Date End Date Susie Chaidez [facility] [address] [place] [address] PCP - General 03/03/09 documented as of this encounter
--- OUTSIDE RECORDS SUMMARY | 2025-03-31 11:15 | XMS_ITS | Encounter Summary ---
Author Organization [facility] [address] Care Team Providers Care Tariff Compiler Name Role Phone Susie Chaidez Primary Care Provider [phone] Reason for Visit * Reason Comments Hypothyroidism Encounter Details Date Type Department Care Team (Latest Contact Info) Description 03/31/2025 11:15 AM EST Office Visit [facility] [place] [address] [facility] [address] [place], [place] [address] Siva Rey MD [address] [place] [address] Primary hypothyroidism (Primary Dx); Abnormal thyroid blood test; Family history of diabetes mellitus (DM); Weight [...] Sign Reading Time Taken Comments Blood Pressure 106/70 03/31/2025 11:49 AM EST Pulse 80 03/31/2025 11:49 AM EST Temperature - - Respiratory Rate 16 03/31/2025 11:49 AM EST Oxygen Saturation - - Inhaled Oxygen Concentration - - Weight 66.2 kg (146 lb) 03/31/2025 11:49 AM EST Height 170.2 cm (5' 7 ) 03/31/2025 11:49 AM EST Body Mass Index 22.87 03/31/2025 11:49 AM EST documented in this encounter Progress Notes * Siva Rey MD - 03/31/2025 11:15 AM EST Subjective Subjective: Patient ID: Stephanie Bhatt is a 49 y.o. female. Chief Complaint Patient presents with [...] Tablet by mouth daily. 30 Tablet 2 multivit-min/folic ac/collagen (WOMEN'S MULTIVITAMIN COLLAGEN ORAL) Take 200 mg by mouth daily. SYNTHROID 125 mcg Oral Tablet Take 1 Tablet by mouth daily. Brand-Medically necessary. 90 Tablet 3 No current facility-administered medications for this visit. Objective: DATA REVIEW: LABS Labs reviewed in chart, results discussed with patient. Labs from [facility] [place] reviewed TSH low at 0.014, normal FT3 and FT4 No results found for: TSHREFLEX Lab Results Component Value Date TSH 0.047 (L) 03/17/2025 TSH 0.050 (L) 09/18/2024 TSH 0.045 (L) 03/13/2024 Lab Results Component Value Date FREET4 1.44 03/17/2025 FREET4 1.38 09/18/2024 FREET4 1.46 03/13/2024 No components found for: FREET3 No results found for: THYROIDAB IMAGING Vitals: 03/31/25 1149 BP: 106/70 Pulse: 80 Resp: 16 Weight: 146 lb (66.2 kg) Height: 5' 7 (1.702 m) Body mass index is 22.87 kg/m??. Physical Exam Vitals and nursing note reviewed. Neck: Thyroid: No thyroid mass, thyromegaly or thyroid tenderness. Assessment and Plan: Diagnoses and all orders for this visit: Primary hypothyroidism - T3 FREE; Future; Expected date: 08/29/2025 (Before Next Appt) - T4, FREE (THYROXINE); Future; Expected date: 08/29/2025 (Before Next Appt) - THYROID STIMULATING HORMONE; Future; Expected date: 08/29/2025 (Before Next Appt) Abnormal thyroid blood test Family history of diabetes mellitus (DM) - HEMOGLOBIN A1C; Future; Expected date: 08/29/2025 (Before Next Appt) - COMPREHENSIVE METABOLIC PANEL; Future; Expected date: 08/29/2025 (Before Next Appt) - LIPID PANEL REFLEX; Future; Expected date: 08/29/2025 (Before Next Appt) - INSULIN FASTING; Future; Expected date: 08/29/2025 (Before Next Appt) Weight gain Assessment and Recommendations: Hypothyroidism well controlled. Her TSH remains low but this is her typical pattern. Her free T3 isnormal however. She has no hyperthyroidism symptoms. She will continue Synthroid YAJAIRA 125 daily and Cytomel 10 mcg daily. Weight gain is stable. She is following healthy diet and exercising regularly. We discussed trial of dietary creatine 5 grams daily. Family history of diabetes. Her HbA1c isimproved to 5.3% with diet and exercise. Return to office: Return in about 6 months (around 09/28/2025) for Hypothyroidism. documented in this encounter Plan of Treatment Upcoming Encounters Date Type Department Care Team (Late st Contact Info) Description 05/11/2025 4:00 PM EST Office Visit [facility] [address] [place] [address] Radha Castellanos, PT [address] [place] [address] 08/24/2025 2:30 PM EDT Office Visit [facility] [address] [place] [address] Luara Garduno MD [address] [place] [address] 09/29/2025 11:00 AM EDT Office Visit [facility] [place] [address] [id number] Siva Rey MD [address] [place] [address] Scheduled Orders Name Type Priority Associated Diagnoses Orde r Schedule T3 FREE Lab Routine Primary hypothyroidism Expected: 08/29/2025 (Approximate), Expires: 11/27/2025 T4, FREE (THYROXINE) Lab Routine Primary hypothyroidism Expected: 08/29/2025 (Approximate), Expires: 11/27/2025 THYROID STIMULATING HORMONE Lab Routine Primary hypothyroidism Expected: 08/29/2025 (Approximate), Expires: 11/27/2025 HEMOGLOBIN A1C Lab Routine Family history of diabetes mellitus (DM) Expected: 08/29/2025 (Approximate), Expires: 11/27/2025 COMPREHENSIVE METABOLIC PANEL Lab Routine Family history of diabetes mellitus (DM) Expected: 08/29/2025 (Approximate), Expires: 11/27/2025 LIPID PANEL REFLEX Lab Routine Family history of diabetes mellitus (DM) Expected: 08/29/2025 (Approximate), Expires: 11/27/2025 INSULIN FASTING Lab Routine Family history of diabetes mellitus (DM) Expected: 08/29/2025 (Approximate), Expires: 11/27/2025 documented as of this encounter Goals Goal Patient Goal Type Associated Problems Recent Progress Patient-Stated? Author Maintain a healthy diet, exercise regularly and maintain an ideal body weight General No Radha Acevedo Stay Tobacco Free Lifestyle No Radha Acevedo documented as of this encounter Visit Diagnoses Diagnosis Primary hypothyroidism- Primary Unspecified hypothyroidism Abnormal thyroid blood test Nonspecific abnormal results of thyroid function study Family history of diabetes mellitus (DM) Family history of diabetes mellitus Weight gain Abnormal weight gain documented in this encounter Discontinued Medications Medication Sig Discontinue Reason Start Date End Da te estradioL (CLIMARA) 0.05 mg/[address] 1 Patch onto the skin once a week. Patient Reported not taking medication 03/31/2025 fish oil OTC (OMEGA-3 DHA-EPA 300 MG) 300-1,000 mg Oral Capsule, Delayed Release(E.C.) Take 2 g by mouth daily. Patient Reported not taking medication 03/31/2025 cyclobenzaprine (FLEXERIL) 10 mg Oral Tablet Take 10 mg by mouth. Patient Reported not taking medication 08/26/2024 03/31/2025 microfibrillar collagen Top Powder Apply topically as needed. Patient Reported not taking medication 03/31/2025 TURMERIC ORAL Take by mouth. Patient Reported not taking medication 03/31/2025 zinc gluconate 50 mg Oral Tablet Take 50 mg by mouth daily. Patient Reported not taking medication 03/31/2025 multivitamin capsule Take 1 Capsule by mouth daily. Patient Reported not taking medication 03/31/2025 mirabegron (MYRBETRIQ) 25 mg Oral Tablet Sustained Release 24 hr Take 1 Tablet by mouth daily. Patient Reported not taking medication 12/28/2021 03/31/2025 documented as of this encounter Care Teams Tariff Compiler Relationship Specialty Start Date End Date Susie Chaidez [facility] [place] [facility] [address] [place] [address] PCP - General 03/03/09 documented as of this encounter
--- OUTSIDE RECORDS SUMMARY | 2025-04-14 15:45 | XMS_ITS | Encounter Summary ---
Author Organization [facility] Address [address] [place] [address] Care Team Providers Care Able Seaman Name Role Phone Susie Chaidez Primary Care Provider [phone] Reason for Referral * Physical Therapy (Routine) - Authorization Not Needed Specialty Diagnoses / Procedures Referred By Leana hayes Referred To Contact Physical Therapy Diagnoses Bilateral plantar fasciitis Laura Garduno MD [address] [place] [address] Phone: tel: fax: Referral ID Status Reason Start Date Expiration Date Visits Requested Visits Authorized [id number] Authorization Not Needed 04/14/2025 05/12/2025 1 90 Question Answer Referral ot Physical Therapy Evaluate and Treat, Modalities of Choice Goals Decrease Pain/Swelling, Increase Funstion/Strength/ROM Medical Necessity Prevent the need for non-conservative measures Reason for Visit * Reason Comments Arthritis Encounter Details Date Type Department Care Team (Latest Contact Info) Description 04/14/2025 3:45 PM EST Office Visit [facility] [address] [place] [address] Laura Garduno MD [address] [place] [address] Bilateral plantar fasciitis (Primary Dx); Primary osteoarthritis of first carpometacarpal joint of right hand; Leg cramps Social History Tobacco Use Types Packs/Day Years [...] Sign Reading Time Taken Comments Blood Pressure 98/54 04/14/2025 4:29 PM EST Pulse - - Temperature 36.8 C (98.2 F) 04/14/2025 4:29 PM EST Respiratory Rate - - Oxygen Saturation - - Inhaled Oxygen Concentration - - Weight 69.9 kg (154 lb) 04/14/2025 4:29 PM EST Height 170.2 cm (5' 7 ) 04/14/2025 4:29 PM EST Body Mass Index 24.12 04/14/2025 4:29 PM EST documented in this encounter Progress Notes * Laura Garduno MD - 04/14/2025 5:17 PM ESTAssociated Problem(s): Leg cramps PLAN Stretching plantar fascia and Achilles will help. Soaking in warm water has helped. Magnesium topical/oral further helps. Labs CMP normal 03/2025. * Laura Garduno MD - 04/14/2025 5:15 PM ESTAssociated Problem(s): Primary osteoarthritis of first carpometacarpal joint of right hand Patient is on NSAIDs-meloxicam. Depo IM has helped. Paraffin wax bath for hands once a day Patient has had intra-articular steroid injections right first CMC joint from orthopedics with decrease in pain. Now has steroid atrophy of skin over that joint area. Patient uses first CMC brace. Follows Ortho-possible surgical intervention in the future. * Laura Garduno MD - 04/14/2025 5:14 PM ESTAssociated Problem(s): Bilateral plantar fasciitis PLAN Physical therapy prescribed. Depo IM has helped. Patient will come back next week to get Depo. Background history Measures that have helped decrease pain include physical therapy-which is ongoing. Patient is also on NSAIDs as tolerated. Chiropractic treatment-shockwave therapy. Laser therapy from podiatry. * Laura Garduno MD - 04/14/2025 3:45 PM EST Images from the original note were not included. Subjective Subjective: Patient ID: Stephanie Bhatt is a 49 y.o. female. Chief Complaint Patient presents with Arthritis HPI: Stephanie Bhatt is a 49 y.o.female Patient has pain involving bilateral plantar facia's and aching involving her legs. She is trying to keep up with the stretches. Soaking her feet in warm water with Epsom salt also has helped. She takes magnesium daily which also decreases cramps involving her legs. Patient has bilateral heel pain, right greater than left. Previously physical therapy significantly helps with plantar fascitis. She also has gone to the chiropractor who does shockwave therapy with short-term relief of pain. Patient had seen podiatry and did laser therapy for the right heel, which also helped for a short time. . She is using OTC orthotics and is on meloxicam 1 a day as tolerated. Patient has been taking meloxicam qd for the past 3 weeks. Usually patient stops taking it for periods and uses it when pain increases. The pain / function / disease activity questionnaire was filled out by the patient and reviewed with me. Refer to flowsheets for full RAPID3. Disease Activity on RAPID 3 = 2.11/19 REVIEW OF SYSTEMS The patient denies fever, weight loss, rash, photosensitivity, Raynaud's phenomenon, dry eyes, dry mouth, oral ulcers, sore throat, heartburn, dysphagia, visual changes, nausea, vomiting, abdominal pain, melena, chest pain, cough, shortness of breath, hemoptysis, hematuria, dysuria, numbness, and tingling. See HPI for further details. Review of systems otherwise negative. Past Medical History: Diagnosis Date Headache(784.0) Hypothyroidism Urinary tract infection Social History Tobacco Use Smoking status: Former Current packs/day: 0.30 Types: Cigarettes Smokeless tobacco: Never Substance Use Topics Alcohol use: No Family History Problem Relation Age of Onset Cataracts Mother Diabetes Mother Hypertension Mother Melanoma Father 54 Melonoma Stroke Father Leukemia Paternal Grandfather 70 Leukemia Macular Degen Neg Hx Allergies Allergen Reactions Penicillins Rash Shellfish Containing Products Swelling Outpatient Medications Marked as Taking for the 04/14/25 encounter (Office Visit) with Laura Garduno MD Medication Sig Dispense Refill Cholecalciferol, Vitamin D3, 50 mcg (2,000 unit) [...] mouth daily. Brand-Medically necessary. 90 Tablet 3 valACYclovir (VALTREX) 1 gram Oral Tablet Take 500 mg by mouth 2 times daily as needed for Other. Objective: Vital Signs: BP 98/54 (BP Location: Left arm, Patient Position: Sitting) Temp 98.2 ??F (36.8 ??C)(Forehead) Ht 5' 7 (1.702 m) Wt 154 lb (69.9 kg) LMP 04/05/2025 (Approximate) BMI 24.12 kg/m?? Body mass index is 24.12 kg/m??. Physical Exam CONST: well developed, well nourished, no apparent distress EYES: No conjunctival erythema. RESP: Normal respiratory effort. SKIN: Right thumb base hypopigmentation of skin. Otherwise no visible rash. MSK: Bilateral first CMC joints with squaring, right side with tenderness on loading. No synovitis small joints bilateral hands. 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 Bilateral ankles without synovitis. No Achilles inflammation. Bilateral calf muscles supple withouttenderness. Tight plantar fascia bilaterally. Straight leg raising test negative bilaterally. Assessment and Plan: Diagnoses and all orders for this visit: Bilateral plantar fasciitis Overview: Active Rt>left. Assessment & Plan: PLAN Physical therapy prescribed. Depo IM has helped. Patient will come back next week to get Depo. Background history Measures that have helped decrease pain include physical therapy-which is ongoing. Patient is also on NSAIDs as tolerated. Chiropractic treatment-shockwave therapy. Laser therapy from podiatry. Orders: - AMB REFERRAL TO PHYSICAL THERAPY Primary osteoarthritis of first carpometacarpal joint of right hand Overview: Symptomatic Assessment & Plan: Patient is on NSAIDs-meloxicam. Depo IM has helped. Paraffin wax bath for hands once a day Patient has had intra-articular steroid injections right first CMC joint from orthopedics with decrease in pain. Now has steroid atrophy of skin over that joint area. Patient uses first CMC brace. Follows Ortho-possible surgical intervention in the future. Leg cramps Overview: Symptomatic Assessment & Plan: PLAN Stretching plantar fascia and Achilles will help. Soaking in warm water has helped. Magnesium topical/oral further helps. Labs CMP normal 03/2025. This is a moderate complexity svroptx-hzlghptg-ujlbtf visit based on reviewing results, obtaining history and physical examination.I have answered patient's questions, and patient stated satisfactionregarding the treatment plan and recommendations. Total time 33 minutes with over 50% spent in counseling and/or coordinating care. Return in about 4 months (around 08/13/2025). * Suzy Kessler MA - 04/14/2025 3:45 PM EST Verbal OK per Dr. Garduno for patient to schedule nurse visit on 04/21/25 for Depo Medrol 120mg IM Patient scheduled 04/21/25 for 4:30pm MARTHA Vasquez/JUDY, Clinical Incident Response Lead documented in this encounter Plan of Treatment Upcoming Encounters Date Type Department Care Team (Late st Contact Info) Description 05/11/2025 4:00 PM EST Office Visit [facility] Physical Therapy [address] [place] [address] Radha Castellanos, PT [address] [place] [address] 08/24/2025 2:30 PM EDT Office Visit [facility] [address] [place] [address] Laura Garduno MD [address] [place] [address] 09/29/2025 11:00 AM EDT Office Visit [facility] [place] [address] [facility] [address] [place] [address] Siva Rey MD [address] [place] [address] Scheduled Referrals Name Type Priority Associated Diagnoses Orde r Schedule AMB REFERRAL TO PHYSICAL THERAPY Outpatient Referral Routine Bilateral plantar fasciitis Ordered: 04/14/2025 documented as of this encounter Goals Goal Patient Goal Type Associated Problems Recent Progress Patient-Stated? Author Maintain a healthy diet, exercise regularly and maintain an ideal body weight General No Radha Acevedo Stay Tobacco Free Lifestyle Radha Glover documented as of this encounter Visit Diagnoses Diagnosis Bilateral plantar fasciitis- Primary Plantar fascial fibromatosis Primary osteoarthritis of first carpometacarpal joint of right hand Primary localized osteoarthrosis, hand Leg cramps Cramp of limb documented in this encounter Historical Medications * This list may reflect changes made after this encounter. valACYclovir (VALTREX) 1 gram Oral Tablet Take 500 mg by mouth 2 times daily as needed for Other. 04/13/2025 added in this encounter Care Teams Able Seaman Relationship Specialty Start Date End Date Susie Chaidez [address] [place] [address] PCP - General 03/03/09 documented as of this encounter
--- OUTSIDE RECORDS SUMMARY | 2025-04-27 10:58 | XMS_ITS | Encounter Summary ---
Author Organization [facility] Address [address] [place] [address] Care Team Providers Care Chocolatier Name Role Phone Susie Chaidez Primary Care Provider Reason for Visit * Reason Onset Date Comments Follow-up 04/05/2025 Encounter Details Date Type Department Care Team (Late st Contact Info) Description 04/05/2025 Telephone [facility] [address] [place] [address] Chuck Manning, Clerical Staff Follow-up Social History Tobacco Use Types Packs/Day Years [...] encounter Miscellaneous Notes * Telephone Encounter - Chuck Manning, Clerical Staff - 04/05/2025 10:44 AM EST spoke with stephanie and we had trouble finding a good appt day. she will be calling back when she is able to get her calendar. 1045 am documented in this encounter Plan of Treatment Upcoming Encounters Date Type Department Care Team (Late st Contact Info) Description 05/11/2025 4:00 PM EST Office Visit [facility] [address] [place] [address] Radha Castellanos, PT [address] [place] [address] 08/24/2025 2:30 PM EDT Office Visit [facility] [address] [place] [address] Laura Garduno MD [address] [place] [address] 09/29/2025 11:00 AM EDT Office Visit [facility] [place] [address] [phone] Siva Rey MD [address] [place] [address] documented as of this encounter Goals Goal Patient Goal Type Associated Problems Recent Progress Patient-Stated? Author Maintain a healthy diet, exercise regularly and maintain an ideal body weight General No Radha Acevedo Stay Tobacco Free Lifestyle No Radha Acevedo documented as of this encounter Visit Diagnoses Not on filedocumented in this encounter Care Teams Chocolatier Relationship Specialty Start Date End Date Susie Chaidez [address] [facility] [address] [place] [id number] PCP - General 03/03/09 documented as of this encounter
--- OUTSIDE RECORDS SUMMARY | 2025-04-27 10:58 | XMS_ITS | Encounter Summary ---
Author Organization [facility] [place] [address] Care Team Providers Care Roof Truss Machine Tender Name Role Phone Susie Chaidez Primary Care Provider [phone] Encounter Details Date Type Department Care Team (Late st Contact Info) Description 03/03/2025 Orders Only [facility] Physical Therapy [address] [address] Godwin Gao, PT Social History Tobacco Use Types Packs/Day Years [...] Visit [facility] [address] [place] [address] Radha Castellanos, PT [address] [place], [place] [id number] 08/24/2025 2:30 PM EDT Office Visit [facility] [address] [place] [address] Laura Garduno MD [address] [place] [address] 09/29/2025 11:00 AM EDT Office Visit [facility] [place] [address] [address] Siva Rey MD [address] [place] [address] documented as of this encounter Goals Goal Patient Goal Type Associated Problems Recent Progress Patient-Stated? Author Maintain a healthy diet, exercise regularly and maintain an ideal body weight General No Radha Acevedo Stay Tobacco Free Lifestyle No Radha Acevedo documented as of this encounter Visit Diagnoses Not on filedocumented in this encounter Care Teams Roof Truss Machine Tender Relationship Specialty Start Date End Date Susie Chaidez [facility] [address] [facility] [place] [address] PCP - General 03/03/09 documented as of this encounter
--- OUTSIDE RECORDS SUMMARY | 2025-04-27 10:58 | XMS_ITS | Encounter Summary ---
Author Organization [facility] [place] [address] Care Team Providers Care Insurance Licensing Supervisor Name Role Phone Susie Chaidez Primary Care Provider Reason for Visit * Reason Comments Medication Refill Encounter Details Date Type Department Care Team (Late Contact Info) Description 03/30/2025 Refill [facility] Infectious Disease EDG [address] [facility] [address] [place] [address] Angella Hercules, SPOT WASHER [address] [place] [id number] Medication Refill Social History Tobacco Use Types Packs/Day Years [...] [facility] [address] [place] [address] Radha Castellanos, PT [address] [facility] [place] [address] 08/24/2025 2:30 PM EDT Office Visit [facility] [address] [place] [address] Laura Garduno MD [address] [place] [address] 09/29/2025 11:00 AM EDT Office Visit [facility] [place] [address] [phone] Siva Rey MD [address] [place] [address] documented as of this encounter Goals Goal Patient Goal Type Associated Problems Recent Progress Patient-Stated? Author Maintain a healthy diet, exercise regularly and maintain an ideal body weight General No Radha Acevedo Stay Tobacco Free Lifestyle Radha Glover documented as of this encounter Visit Diagnoses Not on filedocumented in this encounter Care Teams Insurance Licensing Supervisor Relationship Specialty Start Date End Date Ssuie Chaidez [address] [facility] [address] [place] [address] PCP - General 03/03/09 documented as of this encounter
--- OUTSIDE RECORDS SUMMARY | 2025-04-27 10:58 | XMS_ITS | Clinical Summary ---
Author Organization [facility] Address [address] [facility] [address] Phone Care Team Providers Care Clinical Research Monitor Name Role Phone Eduard Chaidez Primary Care Provider Allergies No known active allergies Medications levothyroxine [...] to complete this topic Insurance Care Teams Clinical Research Monitor Relationship Specialty Start Date End Date Eduard Chaidez [address] [place] [address] PCP - General 05/01/22
--- OUTSIDE RECORDS SUMMARY | 2025-04-27 10:58 | XMS_ITS | Clinical Summary ---
Author Organization [facility] Address [address] [place] [address] Care Team Providers Care Senior Interaction Designer Name Role Phone Historical, Centricity Primary Care [...] therelease of HIV test results or diagnoses. [id number] Active Problems Problem Noted Date Diagnosed Date Supervision of normal first 09/13/2010 Routine general medical exam ination at a health care facility 11/06/2005 Encounters Date Type Department Care Team Description 04/02/[address] [facility] [address] [place] [address] Vernon Bender MD Neoplasm of uncertain behavior of skin (Primary Dx) from Last 3 Months Social History Tobacco Use Types Packs/Day Years Used Date Smoking Tobacco: Never Assessed Comments Unknown Sex and Gender Information Value Date Recorded Sex Assigned at Not on file Legal Sex Female 4:23 PM EST Gender Identity Not on file Sexual Orientation Not on file Plan of Treatment Not on file Procedures Procedure Name Priority Date/Time Associated Diagnosis Comments SKIN / NAIL BIOPSY Routine 03/31/2025 12 :00 AM EST Neoplasm of uncertain behavior of skin from Last 3 Months Results * Skin / nail biopsy (03/31/2025 12:00 AM EST) 03/31/2025 04/01/2025 Narrative [facility] - 03/31/2025 12:00 AM EST CASE: [id number] PATIENT: STEPHANIE PAIZ Clinical Impression: A) DF. B) ISK. Site(s): A. L ant leg mid B. L chest CPT Code(s): 11684 X 2 Diagnosis: A. L ant leg mid Dermatofibroma B. L chest Inflamed seborrheic keratosis. Microscopic Exam: A. L ant leg mid There is acanthosis and hyperpigmentation of the epidermis. The underlying dermis reveals diffuse proliferation of fibroblasts, histiocytic cells and collagen. B. L chest There is hyperkeratosis, papillomatosis, acanthosis and a lymphocytic infiltrate in the superficial dermis. There is no atypia. Gross Description: Specimens of skin were received measuring: A) 7 x 6 x 1 mm B) 5 x 3 x 1 mm. Final Diagnosis performed by PASTOR COKER MD Electronically signed 04/02/2025 01:16:11 PM The Pathologist signing this report is located at [facility], [address] [place] [address], [address], , CLIA ID: [id number] Vernon Bender MD DERM PROCEDURE ORDERABLES Final Result [facility] from Last 3 Months Care Teams Senior Interaction Designer Relationship Specialty Start Date End Date Historical, Centricity PCP - General 11/06/05
--- OUTSIDE RECORDS SUMMARY | 2025-04-27 10:58 | XMS_ITS | Clinical Summary ---
Author Organization [facility] Address [address] [place] [address] Care Team Providers Care Research Microbiologist Name Role Phone Diomedes Enid Devang MARROQUIN Primary Care Provider [phone] Allergies Active Allergy Reactions Criticality Noted Date Comments Penicillins Rash Low 06/13/2019 Shellfish Protein-Containing Drug Products Swelling High 04/26/2014 Medications Synthroid 125 MCG tablet TAKE 1 [...] Used Date Smoking Tobacco: Former Cigarettes 1 1 - 2013 Passive Smoke Exposure: Past [...] or training? Not on file Preferred Language Gabonese 04/08/2024 Comments No Sex and Gender Information [...] 04/16/2024 7:23 AM EST Plan of Treatment Upcoming Encounters Date Type Department Care Team (Late st Contact Info) Description 05/25/2025 10:30 AM EST Pre-Admission Testing [facility] PREADMISSION T [address] [place] [address] 06/01/2025 7:15 AM EST Hospital Encounter [facility] OR [address] [place] [address] Mj Boyer MD [address] [facility] [address] [place], [place] [id number] 06/01/2025 7:15 AM EST - 06/01/2025 11:33 AM EST Surgery [facility] OR [address] [place] [address] Mj Boyer MD [address] [facility] [address] [place], [place] [id number] THIGH LIFT-BILATERAL [47201 (CPT )] Scheduled Procedures Name Priority Associated Diagnoses Date/Ti me THIGH LIFT 06/01/2025 7:15 AM EST Health Maintenance Due Date Last Done Comments Annual Gynecologic Pelvic an d Breast Exam 1973 TDAP/TD VACCINES (1 - Tdap) 1992 COLOGUARD 2018 COLON CANCER SCREENING 5 YEA R SIGMOIDOSCOPY 2018 COLONOSCOPY 2018 [address] CANCER SCREENING [address] CT COLONOGRAPHY 2018 FECAL OCCULT BLOOD TEST 2018 FIT Testing (1 year) 2018 ANNUAL PHYSICAL 06/03/2023 HEPATITIS C SCREENING 06/03/2023 Pneumococcal Vaccine 50+ (1 of 1 - PCV) 11/13/2023 ZOSTER VACCINE (1 of 2) 11/13/2023 INFLUENZA VACCINE 12/11/2024 MAMMOGRAM 03/22/2025 03/22/2023, 03/13, 06/29/2022, Additional history exists Medical Devices Implanted Type Area Catty[place] Device Identifier Shelf Expiration Date Model / Serial / Lot Dev Contrl Tiss Stratafix Spiral Mncryl Ud 3/0 Pls 60cm - [id number] Implanted:Qty : 1 on 06/11/2023 by Mj Boyer MD at [facility] Implant Left: Abdomen [employer] 10/10/2024 [id number] / / [id number] Dev Contrl Tiss Stratafix Spiral Mncryl Ud 3/0 Pls 60cm - [id number] Implanted:Qty : 1 on 06/11/2023 by Mj Boyer MD at [facility] Implant Right: Abdomen [employer] 10/10/2024 [id number] / / [id number] Dev Contrl Tiss Stratafix Spiral Mncryl Ud 3/0 Pls 30cm - [id number] Implanted:Qty : 1 on 06/11/2023 by Mj Boyer MD at [facility] Implant Left: Back [employer] 01/10/2025 [id number] / / [id number] Dev Contrl Tiss Stratafix Spiral Mncryl Ud 3/0 Pls 30cm - [id number] Implanted:Qty : 1 on 06/11/2023 by Mj Boyer MD at [facility] Implant Right: Back [employer] 01/10/2025 [id number] / / [id number] Dev Contrl Tiss Stratafix Spiral Mncryl Ud 3/0 Pls 60cm - [id number] Implanted:Qty : 2 on 04/16/2024 by Mj Boyer MD at [facility] Implant N/A: Arm [employer] 10/10/2025 [id number] / / [id number] Insurance Advance Directives * CPR (Attempt to Resuscitate) (Latest Code Status on File) Date Activated Date Inactivated Comments 06/11/2023 2:26 PM 06/12/2023 1:22 PM Question Answer Comments Code Status (Patient has no pulse and is not breathing): CPR (Attempt to Resuscitate) Medical Interventions (Patie nt has pulse or is breathing): Full Support Level Of Support Discussed With: Patient Care Teams Research Microbiologist Relationship Specialty Start Date End Date Enid Hercules, LOPEZ [address] [place] [address] [place] [address] PCP - General Nurse Practitioner 06/05/23
--- OUTSIDE RECORDS SUMMARY | 2025-04-27 10:58 | XMS_ITS | Clinical Summary ---
Author Organization [facility] Address [address] [place] [address] Phone Care Team Providers Care Health Safety Specialist Name Role Phone Susie Chaidez Primary Care Provider [phone] Allergies Active Allergy Reactions Criticality Noted Date Comments Penicillins Rash Shellfish Containing Products Swelling 2013 Medications Cholecalciferol, Vitamin D3, 50 mcg (2,000 unit) Oral Capsule Take 4,000 Units by mouth daily. Active cyanocobalamin 500 mcg Oral Tablet Take 500 mcg by mouth daily. Active MAGNESIUM ORAL Take by mouth. Active B Complex-Minerals Oral Tablet Take by mouth daily. Active meloxicam (MOBIC) 15 mg Oral TabletIndications:A rthritis of carpometacarpal (CMC) joint of right thumb Take 1 Tablet by mouth daily. 30 Tablet 2 11/08/19 23 Active lactobacillus rhamnosus, GG, (CULTURELLE) 10 billion cell Oral Capsule Take 1 Capsule by mouth daily. Active multivit-min/folic ac/collagen (WOMEN'S MULTIVITAMIN COLLAGEN ORAL) Take 200 mg by mouth daily. Active liothyronine (CYTOMEL) 5 mcg Oral TabletIndications:P rimary hypothyroidism Take 2 Tablets by mouth daily. 180 Tablet 3 09/29/19 Active SYNTHROID 125 mcg Oral TabletIndications:P rimary hypothyroidism Take 1 Tablet by mouth daily. Brand-Medica lly necessary. 90 Tablet 3 09/29/19 Active valACYclovir (VALTREX) 1 gram Oral Tablet Take 500 mg by mouth 2 times daily as needed for Other. 04/13/20 Active multivitamin capsule Take 1 Capsule by mouth daily. Discontinue d(Patient Reported not taking medication) mirabegron (MYRBETRIQ) 25 mg Oral Tablet Sustained Release 24 hr Take 1 Tablet by mouth daily. 30 Tablet 1 12/29/19 Discontinue d(Patient Reported not taking medication) estradioL (CLIMARA) 0.05 mg/[address] 1 Patch onto the skin once a week. Discontinue d(Patient Reported not taking medication) zinc gluconate 50 mg Oral Tablet Take 50 mg by mouth daily. Discontinue d(Patient Reported not taking medication) fish oil OTC (OMEGA-3 DHA-EPA 300 MG) 300-1,000 mg Oral Capsule, Delayed Release(E.C.) Take 2 g by mouth daily. Discontinue d(Patient Reported not taking medication) TURMERIC ORAL Take by mouth. Discontinue d(Patient Reported not taking medication) microfibrillar collagen Top Powder Apply topically as needed. Discontinue d(Patient Reported not taking medication) cyclobenzaprine (FLEXERIL) 10 mg Oral Tablet Take 10 mg by mouth. 08/27/19 Discontinue d(Patient Reported not taking medication) Active Problems Problem Noted Date Diagnosed Date Leg cramps 04/14/2025 Overview (04/14/2025): Symptomatic Assessment & Plan (04/14/2025 5:17 PM EST): PLAN Stretching plantar fascia and Achilles will help. Soaking in warm water has helped. Magnesium topical/oral further helps. Labs CMP normal 03/2025. Impingement of right shoulder 03/03/2025 Primary osteoarthritis of fi rst carpometacarpal joint of right hand 12/11/2023 Overview (04/14/2025): Symptomatic Assessment & Plan (04/14/2025 5:15 PM EST): Patient is on NSAIDs-meloxicam. Depo IM has helped. Paraffin wax bath for hands once a day Patient has had intra-articular steroid injections right first CMC joint from orthopedics with decrease in pain. Now has steroid atrophy of skin over that joint area. Patient uses first CMC brace. Follows Ortho-possible surgical intervention in the future. Assessment & Plan (08/13/2024 2:33 PM EDT): [...] (12/24/2022): Added automatically from request for surgery [id number] Primary hypothyroidism 05/04/2020 Assessment & Plan (05/04/2020 [...] hypotension 01/04/2020 Bilateral plantar fasciitis 06/19/2017 Overview (04/14/2025): Active Rt>left. Assessment & Plan (04/14/2025 5:14 PM EST): PLAN Physical therapy prescribed. Depo IM has helped. Patient will come back next week to get Depo. Background history Measures that have helped decrease pain include physical therapy-which is ongoing. Patient is also on NSAIDs as tolerated. Chiropractic treatment-shockwave therapy. Laser therapy from podiatry. Assessment & Plan (08/13/2024 7:04 PM EDT): [...] Encounters Date Type Department Care Team Description 04/14/2025 3:45 PM EST Office Visit [facility] [address] [place] [address] Laura Garduno MD Bilateral plantar fasciitis (Primary Dx); Primary osteoarthritis of first carpometacarpal joint of right hand; Leg cramps 04/05/2025 Telephone [facility] [address] [place] [address] Chuck Manning, Clerical Staff Follow-up 03/31/2025 11:15 AM EST Office Visit [facility] [place] [address] [address] Siva Rey MD Primary hypothyroidism (Primary Dx); Abnormal thyroid blood test; Family history of diabetes mellitus (DM); Weight gain 03/30/2025 Refill [facility] EDG 20 [facility] [address] [place] [phone] Angella Hercules APRN Medication Refill 03/17/2025 8:34 AM EST - 03/17/2025 11:59 PM EST Hospital Encounter [facility] [address] [place] [address] Family history of diabetes mellitus (DM); Primary hypothyroidism Discharge Disposition: Home or Self Care 03/17/2025 7:30 AM EST - 03/17/2025 8:33 AM EST Hospital Encounter [facility] Physical Therapy [address] [place] [address] Godwin Gao, PT Impingement of right shoulder (Primary Dx) Discharge Disposition: Home or Self Care 03/17/2025 Results Follow-Up [facility] [address] [address] Siva Rey MD INSULIN FASTING, LIPID PANEL REFLEX, COMPREHENSIVE METABOLIC PANEL, Additional followed-up results: 4 03/03/2025 7:30 AM EDT - 03/03/2025 11:59 PM EDT Hospital Encounter [facility] Physical Therapy [address] [place] [address] Godwin aGo, PT Impingement of right shoulder (Primary Dx) Discharge Disposition: Home or Self Care 03/03/2025 Orders Only [facility] Physical Therapy [address] [place] [address] Godwin Gao, PT 03/01/2025 Telephone [facility] [address] [place] [address] Jasmyn Crowe MA Consult; Schedule Appointment 02/03/2025 Orders Only [facility] [address] [place] [address] Godwin Gao, PT from Last 3 Months Surgical History Surgery Date Site/Laterality Comments TUBAL LIGATION 05/13/2002 GALLBLADDER SURGERY 05/13/2005 ENDOMETRIAL ABLATION BREAST REDUCTION SURGERY 05/13/2011 DENTAL SURGERY CHOLECYSTECTOMY PELVIC LAPAROSCOPY LAPAROSCOPIC APPENDECTOMY 06/24/2014 N/A DIAGNOSTIC LAPAROSCOPY INCIDENTAL APPENDECTOMY ; Surgeon: Lefty Elliott MD; Location: ED MAIN OR; Service: General ABDOMINOPLASTY 06/10/2023 [facility] [place], [place] Medical History Medical History Date Comments [...] Pressure 98/54 04/14/2025 4:29 PM EST Pulse 80 03/31/2025 11:49 AM EST Temperature 36.8 C (98.2 F) 04/14/2025 4:29 PM EST Respiratory Rate 16 03/31/2025 11:49 AM EST Oxygen Saturation 100% 05/03/2022 10:11 AM EST Inhaled Oxygen Concentration - - Weight 69.9 kg (154 lb) 04/14/2025 4:29 PM EST Height 170.2 cm (5' 7 ) 04/14/2025 4:29 PM EST Body Mass Index 24.12 04/14/2025 4:29 PM EST Plan of Treatment Upcoming Encounters Date Type Department Care Team (Late st Contact Info) Description 05/11/2025 4:00 PM EST Office Visit [facility] [address] [place] [address] Radha Castellanos, PT [address] [place], [place] [address] 08/24/2025 2:30 PM EDT Office Visit [facility] [address] [place] [address] Laura Garduno MD [address] [place] [address] 09/29/2025 11:00 AM EDT Office Visit [facility] [address] [facility] [address] [place] [address] Siva Rey MD [address] [place] [address] Health Maintenance Due Date Last Done Comments [...] of 2) 11/13/2023 COVID-19 Vaccine ( season) 2025 03/29/2021, 07/02/2020, 06/02/2020 Influenza Vaccine (#1) 2025 Cervical Cancer Screening 10/11/2025 HPV/Pap Cotest 10/11/2025 10/11/2020 Breast Cancer Screening 07/30/2026 07/31/19 25, 03/22/2023, 06/29/2022, Additional history exists Meningococcal B Vaccine Aged Out No l onger eligible based on patient's age to complete this topic Goals Goal Patient Goal Type Associated Problems Recent Progress Patient-Stated? Author Maintain a healthy diet, exercise regularly and maintain an ideal body weight General No Radha Acevedo Stay Tobacco Free Lifestyle No Radha Acevedo Procedures Procedure Name Priority Date/Time Associated Diagnosis Comments T3 FREE Routine 03/17/2025 8:39 AM EST Primary hypothyroidism T4, FREE (THYROXINE) Routine 03/17/2025 8:39 AM EST Primary hypothyroidism THYROID STIMULATING HORMONE Routine 03/17/2025 8:39 AM EST Primary hypothyroidism HEMOGLOBIN A1C Routine 03/17/2025 8:39 AM EST Family history of diabetes mellitus (DM) COMPREHENSIVE METABOLIC PANEL Routine 03/17/2025 8:39 AM EST Family history of diabetes mellitus (DM) LIPID PANEL REFLEX Routine 03/17/2025 8: 39 AM EST Family history of diabetes mellitus (DM) INSULIN FASTING Routine 03/17/2025 8:39 AM EST Family history of diabetes mellitus (DM) MM MAMMO DIGITAL MIGUEL SCREEN BILAT Routine 07/30/2024 10:16 AM EDT Encounter for screening mammogram for malignant neoplasm of breast SLING OPERATOR CYTOLOGY REQUEST (PAP ONLY) Routine 10/11/2020 11:39 AM EDT Well woman exam with routine gynecological exam from Last 3 Months or Most Recently Relevant to Health Maintenance Results * (ABNORMAL) LIPID PANEL REFLEX (03/17/2025 8:39 AM EST) Cholesterol 232(H) <200 mg/dL 03/17/2025 4:26 PM EST [facility] [employer] Comment: < 200 Desirable 200 - 239 Borderline High >= 240 High Triglyceride 32 <150 mg/dL 03/17/2025 4:26 PM EST [employer] Comment: < 150 Normal 150 - 199 Borderline High 200 - 499 High >= 500 Very High HDL 81 >=40 mg/dL 03/17/2025 4:26 PM EST [employer] Comment: > 60 Optimal 40 - 60 Acceptable < 40 Low LDL Calculated 146(H) <100 mg/dL 03/17/2025 4:26 PM EST [employer] Comment: < 100 Optimal 100 - 129 Near or above optimal 130 - 159 Borderline High 160 - 189 High >= 190 Very High The National Institutes of Health (NIH) equation is used for all lipid panels that report calculated LDL (LDL-C). Non-HDL-C Calculated 151(H) <=129 mg/dL 03/17/2025 4:26 PM EST [employer] Comment: <130 Desirable 130-159 Above Desirable 160-189 Borderline High 190-219 High >= 220 Very High Fasting Specimen? Yes None 025 4:26 PM EST [employer] Blood VENOUS BLOOD / Unknown Venipuncture / Unknown 03/17/2025 8:39 AM EST 03/17/2025 8:39 AM EST us Siva Rey MD CHEMISTRY ORDERABLES Final Re sult [employer] [facility] [address] [facility] , [place] [address] * INSULIN FASTING (03/17/2025 8:39 AM EST) Insulin Fasting 3.91 2.60 - 24.90 mcIU/mL 03/17/2025 4:24 PM EST [employer] Blood VENOUS BLOOD / Unknown Venipuncture / Unknown 03/17/2025 8:39 AM EST 03/17/2025 8:39 AM EST Narrative [facility] - 03/17/2025 4:24 PM EST Ingestion of madelin doses of biotin (>5 mg/day) taken within 8 hours of drawing blood sample can interfere with this immunoassay test. Siva Rey MD CHEMISTRY ORDERABLES Final Re sult Performing Organization Address [facility] Phone Number [facility] [place] [facility] [address] , [place] [address] * T3 FREE (03/17/2025 8:39 AM EST) T3 Free 3.06 2.00 - 4.40 pg/mL 03/17/2025 4:26 PM EST [facility] [employer] [facility] Blood VENOUS BLOOD / Unknown Venipuncture / Unknown 03/17/2025 8:39 AM EST 03/17/2025 8:39 AM EST Narrative [facility] - 03/17/2025 4:26 PM EST Ingestion of madelin doses of biotin (>5 mg/day) taken within 8 hours of drawing blood sample can interfere with this immunoassay test. Siva Rey MD CHEMISTRY ORDERABLES Final Re sult Performing Organization Address [facility] Phone Number [facility] [place] [facility] [address] , [place] [phone] * (ABNORMAL) THYROID STIMULATING HORMONE (03/17/2025 8:39 AM EST) TSH 0.047(L) 0.270 - 4.200 mcIU/mL 03/17/2025 4:26 PM EST [facility] [employer] [facility] Blood VENOUS BLOOD / Unknown Venipuncture / Unknown 03/17/2025 8:39 AM EST 03/17/2025 8:39 AM EST Narrative [facility] [employer], [facility] - 03/17/2025 4:26 PM EST Ingestion of madelin doses of biotin (>5 mg/day) taken within 8 hours of drawing blood sample can interfere with this immunoassay test. Siva Rey MD CHEMISTRY ORDERABLES Final Re sult Performing Organization Address [facility] de Phone Number [facility] [address] [place] [address] [address], [place] [address] * T4, FREE (THYROXINE) (03/17/2025 8:39 AM EST) Pathologist [facility] Free T4 1.44 0.80 - 1.80 ng/dL 03/17/2025 4:26 PM EST [employer] Blood VENOUS BLOOD / Unknown Venipuncture / Unknown 03/17/2025 8:39 AM EST 03/17/2025 8:39 AM EST Narrative [employer] - 03/17/2025 4:26 PM EST Ingestion of madelin doses of biotin (>5 mg/day) taken within 8 hours of drawing blood sample can interfere with this immunoassay test. Siva Rey MD CHEMISTRY ORDERABLES Final Re sult Performing Organization Address [facility] de Phone Number [employer] [address] [place] [address] , [place] [address] * HEMOGLOBIN A1C (03/17/2025 8:39 AM EST) Hgb A1C 5.2 4.2 - 5.6 % 03/17/2025 3:30 PM EST [employer] Est. Avg Glucose 103 mg/dL 03/17/2025 3:30 PM EST [employer] Blood VENOUS BLOOD / Unknown Venipuncture / Unknown 03/17/2025 8:39 AM EST 03/17/2025 8:39 AM EST Narrative [employer] - 03/17/2025 3:30 PM EST REFERENCE RANGE: [...] ORDERABLES Final Re sult [facility] [address] [facility] , [place] [address] * (ABNORMAL) COMPREHENSIVE METABOLIC PANEL (03/17/2025 8:39 AM EST) Sodium 135(L) 136 - 145 mmol/L 03/17/2025 [...] - 123 U/L 03/17/2025 4:26 PM EST [employer] [facility] eGFR (CKD-EPIcr 2020) 104 >=60 mL/min/1.7 3 m2 03/17/2025 4:26 PM EST [facility] [facility] Comment:Estimated GFR was ca lculated using the CKD-EPIcr (2020) equation refit without race. The equation is recommended by the National Kidney Foundation - [place] Neph[employer] Task Force. Blood VENOUS BLOOD / Unknown Venipuncture / Unknown 03/17/2025 8:39 AM EST 03/17/2025 8:39 AM EST us Siva Rey MD CHEMISTRY ORDERABLES Final Re sult [facility] 1 [facility], [place] [address] * MM MAMMO DIGITAL MIGUEL SCREEN BILAT (07/30/2024 10:16 AM EDT) Anatomical Region Laterality Modality Breast Bilateral Mammography 07/30/2024 10:1 6 AM EDT Impressions 07/30/2024 11:25 AM EDT Negative ([id number]) RECOMMENDATION: Routine Screening Mammogram in 1 Year Bilateral . . COMMENTS: DISCLAIMER *The patient was notified by MyChart or mail of the results for this examination. *The patient's information was entered into a reminder system with a target due date for the next breast imaging, in accordance with the [employer] and the Society of [...] for screening mammogram for malignant neoplasm of [id number]-CM COMPARISON STUDIES: Compared with prior studies the most recent being 03/22/2023 MM MAMMO DIGITAL MIGUEL DIAGN BILAT at [facility] 06/29/2022 MM MAMMO DIGITAL MIGUEL SCREEN BILAT at [facility] 07/04/2021 MM MAMMO DIGITAL MIGUEL SCREEN BILAT at [facility] TISSUE DENSITY: The breasts are heterogeneously dense, which may obscure small masses. FINDINGS: No mammographic evidence of malignancy. Procedure Note Cara Tovar MD - 07/30/2024 EXAM: MM MAMMO DIGITAL MIGUEL SCREEN BILAT EXAM DATE: 07/30/2024 10:16 AM INDICATION: Z12.31-Encounter for screening mammogram for malignantneoplasm of qqovif-[id number]-CM COMPARISON STUDIES: Compared with prior studies the most recent being 03/22/2023 MM MAMMO DIGITAL MIGUEL DIAGN BILAT at [facility] 06/29/2022 MM MAMMO DIGITAL MIGUEL SCREEN BILAT at [facility] 07/04/2021 MM MAMMO DIGITAL MIGUEL SCREEN BILAT at [facility] TISSUE DENSITY: The breasts are heterogeneously dense, which may obscuresmall masses. FINDINGS: No mammographic evidence of malignancy. IMPRESSION: Negative ([id number]) RECOMMENDATION: Routine Screening Mammogram in 1 Year Bilateral . . COMMENTS: DISCLAIMER *The patient was notified by MyChart or mail of the results for this examination. *The patient's information was entered into a reminder system with atarget due date for the next breast imaging, in accordance with the [employer] and the Society of Breast Imaging recommendations. *Breast Imaging has a false negative rate of 15%. *Any patient with a palpable abnormality, unexplained by breast imaging,should be managed on a clinical basis by the attending physician. Enid Hercules APRN IMG MAMMOGRAPHY ORDERABLES Fin al Result * SLING OPERATOR CYTOLOGY REQUEST (PAP ONLY) (10/11/2020 11:39 AM EDT) CASE REPORT Gynecologic Cytology Report Case: [id number] Authorizing Provider: Pedro Wood MD Collected: 10/11/2020 1139 Ordering Location: [facility] Edg Received: 10/11/2020 1139 First Screen: Henna Nguyen CT Specimen: LIQUID-BASED PAP - CERVICAL/ENDOCERV ICAL, Cervix, Endocervical 10/13/2020 9:48 AM EDT [facility] PAP FINAL DIAGNOSIS Negative for intraepithelial lesion or malignancy 10/13/2020 9:48 AM EDT [facility] at 0948 EDT MICROSCOPIC DESCRIPTION Microscopic examination is performed and the findings corroborate the diagnosis 10/13/2020 9:48 AM EDT [facility] PAP SMEAR ADEQUACY Satisfactory for evaluation 10/13/2020 9:48 AM EDT [facility] ENDOCERVICAL T-ZONE Transformation zone present 10/13/2020 9:48 AM EDT [facility] EMBEDDED IMAGES 9:48 AM EDT [facility] PAP DISCLAIMER The Pap Smear is a screening test that aids in the detection of cervical cancer and cancer precursors. Both false positive and false negative results can occur. The test should be used at regular intervals, and positive results should be confirmed before definitive therapy. Processed using the ThinPrep Policy Service Coordinator Automated cytology screening device ([employer]). 10/13/2020 9:48 AM EDT [facility] Thin Prep ENDOCERVICAL STRUCTURE / Unknown 10/11/2020 11:39 AM EDT 10/11/2020 11:39 AM EDT us Pedro Wood MD CYTOLOGY ORDERABLES Final R esult [facility] [address] [place] [address] from Last 3 Months or Most Recently Relevant to Health Maintenance Insurance [employer] PPO ANTHEM PPO ANTHEM PPO ANTHEM PPO ANTHEM PPO ANTHEM PPO [facility] PPO Care Teams Health Safety Specialist Relationship Specialty Start Date End Date Susie Chaidez [address] [place] [address] PCP - General 03/03/09
--- OUTSIDE RECORDS SUMMARY | 2025-04-27 10:58 | XMS_ITS | Encounter Summary ---
Author Organization [facility] Address [address] [place] [address] Care Team Providers Care Plastic Card Grader Cardroom Name Role Phone Historical, Centricity Primary Care Provider Sherry vailable Source Comments This information has been disclosed to you from confidential records protectfrom disclosure by state law. You shall make no further disclosure of thisinformation without the specific, written, and informed release of theindividual to whom it pertains, or as otherwise permitted by law. A generalauthorization for the release of medical or other information is not sufficientfor the purposes of the release of HIV test results or diagnoses. [id number] [facility] Encounter Details Date Type Department Care Team (Late st Contact Info) Description 04/02/2025 Orders Only [facility] [address] [place] [address] [place] [address] [place] [address] Neoplasm of uncertain behavior of skin (Primary Dx) Social History Tobacco Use Types Packs/Day Years Used Date Smoking Tobacco: Never Assessed Comments Unknown Sex and Gender Information Value Date Recorded Sex Assigned at Not on file Legal Sex Female 4:23 PM EST Gender Identity Not on file Sexual Orientation Not on file documented as of this encounter Plan of Treatment Not on file documented as of this encounter Procedures Procedure Name Priority Date/Time Associated Diagnosis Comments SKIN / NAIL BIOPSY Routine 03/31/2025 12 :00 AM EST Neoplasm of uncertain behavior of skin documented in this encounter Results * Skin / nail biopsy (03/31/2025 12:00 AM EST) 03/31/2025 04/01/2025 Narrative [facility] - 03/31/2025 12:00 AM EST CASE: [id number] PATIENT: STEPHANIE PAIZ Clinical Impression: A) DF. B) ISK. Site(s): A. L ant leg mid B. L chest CPT Code(s): 55890 X 2 Diagnosis: A. L ant leg [...] Pathologist signing this report is located at [facility], [address] [place] [address], [id number], , CLIA ID: [id number] Vernon Bender MD DERM PROCEDURE ORDERABLES Final Result [facility] documented in this encounter Visit Diagnoses Diagnosis Neoplasm of uncertain behavior of skin- Primary documented in this encounter Care Teams Plastic Card Grader Cardroom Relationship Specialty Start Date End Date Historical, Centricity PCP - General 11/06/05 documented as of this encounter
--- OUTSIDE RECORDS SUMMARY | 2025-04-27 10:58 | XMS_ITS | Encounter Summary ---
Author Organization [place] [address] Care Team Providers Care Flame Hardening Machine Operator Name Role Phone Susie Chaidez Primary Care Provider [phone] Encounter Details Date Type Department Care Team (Latest Contact Info) Description 03/17/2025 Results Follow-Up [facility] [place] [address] [facility] [address] [place] [address] Siva Rey MD [address] [place] [address] INSULIN FASTING, LIPID PANEL REFLEX, COMPREHENSIVE METABOLIC PANEL, Additional followed-up results: 4 Social History Tobacco [...] [facility] [address] [place] [address] Radha Castellanos, PT [address] [place] [address] 08/24/2025 2:30 PM EDT Office Visit [facility] [address] [place] [address] Laura Garduno MD [address] [place] [address] 09/29/2025 11:00 AM EDT Office Visit [facility] [place] [address] [phone] Siva Rey MD [address] [place] [address] documented as of this encounter Goals Goal Patient Goal Type Associated Problems Recent Progress Patient-Stated? Author Maintain a healthy diet, exercise regularly and maintain an ideal body weight General No Radha Acevedo Stay Tobacco Free Lifestyle Radha Glover documented as of this encounter Visit Diagnoses Not on filedocumented in this encounter Care Teams Flame Hardening Machine Operator Relationship Specialty Start Date End Date Susie Chaidez [address] [facility] [address] [place] [address] PCP - General 03/03/09 documented as of this encounter
--- OUTSIDE RECORDS SUMMARY | 2025-04-27 10:58 | XMS_ITS | Encounter Summary ---
Author Organization [facility] Address [address] [place] [address] Care Team Providers Care Needle Grader Name Role Phone Susie Chaidez Primary Care Provider [phone] Reason for Visit * Reason Onset Date Comments Consult 03/01/2025 Schedule Appointment 03/01/2025 Encounter Details Date Type Department Care Team (Late st Contact Info) Description 03/01/2025 Telephone [facility] [address] [place] [address] Jasmyn Crowe MA Consult; Schedule Appointment Social History Tobacco Use Types Packs/Day Years [...] encounter Miscellaneous Notes * Telephone Encounter - Maryjane French RT - 04/05/2025 12:33 PM EST Images from the original note were not included. Appointment Cancellation Request (Newest Message First) Nely Turner, RT routed conversation to [facility]Scheduling12 minutes ago (12:19 PM) Nely Turner RT Stephanie M [id number] minutes ago (12:19 PM) Please call [phone] to reschedule This MyChart message has not been read. Stephanie Soheila Nova P [facility] (supporting Brooklyn Kimble PA-C)41 minutes ago (11:50 AM) Stephanie Soheila Nova would like to cancel the following appointments: Brooklyn Kimble PA-C in [facility] ([phone]), 04/14/2025 9:00 AM Comments: I will have to reschedule this appt. Please call me to do this * Telephone Encounter - Jasmyn Crowe MA - 03/03/2025 9:11 AM EDT received online vv consult request. called pt to get scheduled. got no answer so i left a detailed message letting pt know who i am, where i am calling from, the reason for the call, and the number to return call to the office. called x 3 * Telephone Encounter - Jasmyn Crowe MA - 03/02/2025 9:22 AM EDT received online vv consult request. called pt to get scheduled. got no answer so i left a detailed message letting pt know who i am, where i am calling from, the reason for the call, and the number to return call to the office. called x 2 * Telephone Encounter - Jasmyn Crowe MA - 03/01/2025 8:29 AM EDT received online vv consult request. called pt to get scheduled. got no answer so i left a detailed message letting pt know who i am, where i am calling from, the reason for the call, and the number to return call to the office. called x 1 documented in this encounter Plan of Treatment Upcoming Encounters Date Type Department Care Team (Late st Contact Info) Description 05/11/2025 4:00 PM EST Office Visit [facility] [address] [place] [address] Radha Castellanos, PT [address] [place] [address] 08/24/2025 2:30 PM EDT Office Visit [facility] [address] [place] [address] Laura Garduno MD [address] [place] [address] 09/29/2025 11:00 AM EDT Office Visit [facility] [place] [address] [id number] Siva Rey MD [address] [place] [address] documented as of this encounter Goals Goal Patient Goal Type Associated Problems Recent Progress Patient-Stated? Author Maintain a healthy diet, exercise regularly and maintain an ideal body weight General No Radha Acevedo Stay Tobacco Free Lifestyle No Radha Acevedo documented as of this encounter Visit Diagnoses Not on filedocumented in this encounter Care Teams Needle Grader Relationship Specialty Start Date End Date Susie Chaidez [address] [facility] [address] [place], [place] [id number] PCP - General 03/03/09 documented as of this encounter
--- NOTE | 2025-04-27 11:15 | CA_ITS ---
FINAL REPORT TECHNIQUE: Multiple transverse and longitudinal images were performed of right the femoral-popliteal deep venous system with augmentation and compression maneuvers. CLINICAL HISTORY: Pt started a new job and got new shoes at least 5 weeks ago. calf pain FINDINGS: Right lower extremity duplex ultrasound demonstrates normal flow in the deep venous system. There is no abnormal echogenicity to suggest thrombus. There is normal compression and augmentation. IMPRESSION: No evidence of right DVT. Reviewed, Interpreted and Dictated by Raquel Knox MD Transcribed by Luz Stanton Authenticated and [facility]
== END 2025-04-27 23:59 | disposition home or self-care (01) ==
LOC: RT 10:34
PROVIDERS: PCP Nurse Practitioner; Visit Provider Nurse Practitioner
DX: M79.661 Pain in right lower leg (principal)
CPT/HCPCS: 93971